=== PATIENT | female | born 1965 | race Caucasian/White ===

== ENCOUNTER → 2018-01-22 | Outpatient (CLI) | payer OTHER ==
[~2018-01-22] MED LIST: GASTROGRAFIN SOLUTION 30ML (Q9963) As Ordered; ISOVUE-370 76% 100ML VIAL (Q9967) As Ordered
== END ==
LOC: M RAD 14:39
DX: C50.912 Malignant neoplasm of unspecified site of left female breast (principal); K76.89 Other specified diseases of liver
CPT/HCPCS: Q9963

== ENCOUNTER → 2018-02-02 | Outpatient (CLI) | payer OTHER ==
[~2018-02-02] MED LIST changes: -GASTROGRAFIN SOLUTION 30ML (Q9963) As Ordered; -ISOVUE-370 76% 100ML VIAL (Q9967) As Ordered; +PROHANCE 279.3MG/ML 15ML VIAL (A9576) As Ordered
== END ==
LOC: M RAD 09:55
DX: C50.912 Malignant neoplasm of unspecified site of left female breast (principal); R59.0 Localized enlarged lymph nodes
CPT/HCPCS: A9576

== ENCOUNTER → 2018-02-17 | Outpatient (CLI) | payer OTHER | LOC: M CARPUL 11:08 | DX: I50.31 Acute diastolic (congestive) heart failure (principal); I33.9 Acute and subacute endocarditis, unspecified; C50.911 Malignant neoplasm of unspecified site of right female breast; Z92.21 Personal history of antineoplastic chemotherapy | CPT/HCPCS: 93306 ==

== ENCOUNTER → 2018-02-20 | Outpatient (CLI) | payer OTHER | LOC: M EKG 17:19 | DX: Z01.818 Encounter for other preprocedural examination (principal); C50.919 Malignant neoplasm of unspecified site of unspecified female breast | CPT/HCPCS: 71046 ==

== ENCOUNTER 2018-02-23 11:26 | Day surgery (SDC) | payer OTHER ==
[2018-02-23] MEDS ORDERED: LR 1,000 ML IV ×2 (12:00→16:15)
[2018-02-23] MEDS ORDERED: PROPOFOL 200 MG/20 ML VIAL As Ordered (13:56)
[2018-02-23] MEDS ORDERED: MIDAZOLAM INJ 2 MG/2 ML VIAL (J2250) As Ordered (13:56)
[2018-02-23] MEDS ORDERED: fentaNYL 100 MCG/2 ML INJECTION (J3010) As Ordered (13:56)
[2018-02-23] MEDS ORDERED: LIDOCAINE 2% INJ 100 MG/5 ML SDV (FOR ANES.) As Ordered (13:58)
[2018-02-23] MEDS: MUPIROCIN 2% OINT 22 GM TUBE TOP (14:45)
[2018-02-23] MEDS: LIDOCAINE 1% SDV INJ 30 ML VIAL As Ordered (14:56)
[2018-02-23] MEDS: HEPARIN SOD (PORCINE) 5000 UNITS/ML VIAL As Ordered (15:14)
[2018-02-23] MEDS: BUPIVACAINE LIPOSOME/PF 1.3% 20ML VIAL (13.3MG/ML)(EXPAREL)(C9290 PER1MG) As Ordered (15:20)
[2018-02-23] MEDS ORDERED: METOCLOPRAMIDE INJ 10MG/2ML VIAL (J2765) IV (16:15)
[2018-02-23] MEDS ORDERED: ONDANSETRON 4MG/2ML VIAL (J2405) IV (16:15)
[2018-02-23] MEDS ORDERED: fentaNYL 100 MCG/2 ML INJECTION (J3010) IV (16:15)
[2018-02-23] MEDS ORDERED: PERCOCET 5MG/325MG TAB PO (16:15)
== END 2018-02-23 18:10 | disposition home or self-care (01) ==
LOC: M SDC 11:26
DX: C50.912 Malignant neoplasm of unspecified site of left female breast (principal); Z45.2 Encounter for adjustment and management of vascular access device; M79.7 Fibromyalgia; M26.609 Unspecified temporomandibular joint disorder, unspecified side; Z88.5 Allergy status to narcotic agent; Z91.040 Latex allergy status; Z79.899 Other long term (current) drug therapy
CPT/HCPCS: 36561

== ENCOUNTER → 2018-02-26 | Outpatient (CLI) | payer OTHER | LOC: M SMT 08:07 | DX: Z01.818 Encounter for other preprocedural examination (principal); C50.912 Malignant neoplasm of unspecified site of left female breast; J93.9 Pneumothorax, unspecified | CPT/HCPCS: 71046 ==

== ENCOUNTER 2018-03-04 01:50 | Emergency (ER) | payer OTHER ==
[~2018-03-04] VITALS: Ht 167.6 cm; Wt 75.5 kg
[~2018-03-04 01:50] MED LIST changes: +ACET-683 PO; +AMOX125C PO; +DEXA4TA PO; +ECOT81TA5 PO; +FLAX10008 PO; +FLON1SPR NARES; +HYDR-3713 PO; +MAGN250T9 PO; +MELA5TAB20 PO; +MULT1TAB18 PO; +PERI0.126 PO; +PROB250C PO; +PROC10TA4 PO; -PROHANCE 279.3MG/ML 15ML VIAL (A9576) As Ordered; +ZOFR8TAB24 PO
[2018-03-04] MEDS ORDERED: ISOVUE-370 76% 100ML VIAL (Q9967) As Ordered ONE (02:54)
[2018-03-04 02:55] LABS: BASO % 0.1 % (0.0-1.0); HEMATOCRIT 34.9 % (36.0-47.0); HEMOGLOBIN 11.3 g/dl (12.0-15.5); LYMPH # 0.3 10^3/uL (1.5-4.5); LYMPH % 1.6 % (24.0-44.0); MEAN CORPUSCULAR HEMOGLOBIN 29.6 pg (27.0-33.0); MEAN CORPUSCULAR HGB CONC 32.4 g/dl (32.0-36.5); MEAN CORPUSCULAR VOLUME 91.4 fl (80.0-96.0); MONO # 0.7 10^3/uL (0.0-0.8); NEUTROPHILS # 16.3 10^3/uL (1.8-7.7); NEUTROPHILS % 91.3 % (36.0-66.0); PLATELET COUNT, AUTOMATED 309 10^3/uL (150-450); RED BLOOD COUNT 3.82 10^6/uL (4.00-5.40); WHITE BLOOD COUNT 17.8 10^3/uL (4.0-10.0)
[2018-03-04] MEDS ORDERED: diphenhydrAMINE INJ 50MG/ML VIAL (J1200) IV ONE (03:00)
[2018-03-04] MEDS ORDERED: methylPREDNISolone INJ 125 MG/2 ML VIAL (J2930) IV ONE (03:00)
[2018-03-04 03:27] LABS: BLOOD UREA NITROGEN 12 MG/DL (7-18); CALCIUM LEVEL 8.1 MG/DL (8.5-10.1); CARBON DIOXIDE LEVEL 29 MEQ/L (21-32); CHLORIDE LEVEL 107 MEQ/L (98-107); CK-MB VALUE MASS < 1.0 NG/ML (<3.6); CPK CREATINE PHOSPHOKINASE 127 U/L (26-192); CREATININE FOR GFR 0.65 MG/DL (0.55-1.30); GLOMERULAR FILTRATION RATE > 60.0 (>51); GLUCOSE, FASTING 150 MG/DL (70-100); MB/CK RELATIVE INDEX 0.79 (< OR =4); POTASSIUM SERUM 3.8 MEQ/L (3.5-5.1); SODIUM LEVEL 143 MEQ/L (136-145); TROPONIN I 0.02 NG/ML (< 0.10)
[2018-03-04 04:30] VITALS: BP 141/67
--- NOTE | 2018-03-04 04:35 | REPVR ---
EXAM: CT Angiography Chest With Contrast EXAM DATE/TIME: 03/04/2018 2:47 AM CLINICAL HISTORY: 52 years old, female; Pain; Chest pain; Right-sided chest pain; Additional info: Right sided chest pain TECHNIQUE: Axial computed tomographic angiography images of the chest with intravenous contrast using CT angiography protocol. All CT scans at this facility use at least one of these dose optimization techniques: automated exposure control; mA and/or kV adjustment per patient size (includes targeted exams where dose is matched to clinical indication); or iterative reconstruction. Coronal and sagittal reformatted images were created and reviewed. MIP reconstructed images were created and reviewed. CONTRAST: 75 ml of iso administered intravenously. COMPARISON: CT Chest with contrast 01/22/2018 4:23 PM CR - CHEST 2 VIEWS 02/26/2018 8:22:46 AM FINDINGS: Tubes, catheters and devices: There is a right sided [id number]. Pulmonary arteries: The pulmonary arteries are not enlarged. No filling defects are seen to indicate an acute pulmonary embolism. Aorta: There is no thoracic aortic aneurysm or evidence of dissection. Lungs: There is dependent mild hazy density and minimal peripheral bibasilar atelectasis. Pleural space: There are no pleural effusions present. There is a small right-sided pneumothorax, significantly decreased in size compared to the chest x-ray of 02/26/2018. Heart: The heart is normal in size. Liver: Multiple low attenuation lesions with simple fluid density consistent with cysts are again seen in the liver, with the largest included lesion measuring 2.9 cm, located at the dome in the right lobe. Lymph nodes: An enlarged left axillary lymph node measures 2.1 x 1.9 cm, unchanged in size from the prior exam. Bones/joints: Mild degenerative endplate changes are noted in the visualized spine. Soft tissues: Unremarkable. IMPRESSION: 1. Residual small right pneumothorax, significantly smaller than on the prior chest x-ray. 2. No evidence of acute pulmonary embolism. 3. Small amount of dependent and basilar density most consistent with mild atelectasis. Electronically signed by: Homa Mascorro On 03/04/2018 04:34:49 AM
[2018-03-04] MEDS ORDERED: OXYCODONE/APAP 5MG/325MG(BULK FOR ED) 1 TABLET PO ONE (05:30)
--- NOTE | 2018-03-04 10:36 | ECGEPIP ---
Stationary ECG Study [facility] - ED Test Date: 2018-03-04 Pat Name: JOSE STRINGER Department: Room: - Gender: F Engineering Technologist: lamar : 1965 Requested By: JIMENEZ Corley Order Number: [id number] Reading MD: Janell Price Measurements Intervals [place] Rate: 73 P: 46 NH: 151 QRS: 9 QRSD: 92 T: 47 QT: 386 QTc: 428 Interpretive Statements SINUS RHYTHM NONSPECIFIC ST & T-WAVE ABNORMALITY DECREASED RATE 02/20/18 Electronically Signed On 03-04-2018 10:35:39 EST by Janell Price
[2018-03-05] MEDS ORDERED: ONDA8TAB7 PO (16:17)
[2018-03-05] MEDS ORDERED: MELA5TAB17 PO (16:17)
[2018-03-05] MEDS ORDERED: MAGN400T5 PO (16:17)
[2018-03-05] MEDS ORDERED: PROC10TA4 PO (16:17)
[2018-03-05] MEDS ORDERED: EMEN150S IV (16:17)
[2018-03-05] MEDS ORDERED: OXYC1TAB23 PO (16:17)
[2018-03-05] MEDS ORDERED: DEXA10VL IV (16:17)
[2018-03-05] MEDS ORDERED: DEXA4TA PO (16:17)
[2018-03-05] MEDS ORDERED: PROB1TAB PO (16:17)
[2018-03-05] MEDS ORDERED: PALO0.25 IV (16:17)
[2018-03-05] MEDS ORDERED: HERC150I IV (16:19)
== END 2018-03-04 06:51 | disposition home or self-care (01) ==
LOC: M ED 01:50
DX: J93.9 Pneumothorax, unspecified (principal); R07.89 Other chest pain; C50.919 Malignant neoplasm of unspecified site of unspecified female breast; Z88.5 Allergy status to narcotic agent; Z91.040 Latex allergy status; Z91.013 Allergy to seafood; J30.2 Other seasonal allergic rhinitis; Z79.899 Other long term (current) drug therapy; Z79.82 Long term (current) use of aspirin
CPT/HCPCS: 71275; 80048; 82550; 82553; 84484; 85025; 93005; 96374; 96375; 99284; J1200; J2930; Q9967

== ENCOUNTER 2018-03-05 12:03 | Observation (INO) | payer OTHER ==
[2018-03-05 14:20] LABS: BEDSIDE GLUCOSE 110 MG/DL (70-105)
[2018-03-05] MEDS: NS 1,000 ML IV ×2 (14:25→17:14)
[2018-03-05 14:26] LABS: HEMATOCRIT 38.3 % (36.0-47.0); HEMOGLOBIN 12.5 g/dl (12.0-15.5); MEAN CORPUSCULAR HEMOGLOBIN 29.8 pg (27.0-33.0); MEAN CORPUSCULAR HGB CONC 32.6 g/dl (32.0-36.5); MEAN CORPUSCULAR VOLUME 91.2 fl (80.0-96.0); PLATELET COUNT, AUTOMATED 265 10^3/uL (150-450); RED CELL DISTRIBUTION WIDTH 12.6 % (11.5-14.5); WHITE BLOOD COUNT 15.1 10^3/uL (4.0-10.0)
[2018-03-05 14:39] LABS: POS COUNT POS FLAG; POSITIVE MORPH POS FLAG
[2018-03-05 14:40] LABS: ADD MANUAL DIFFER YES; DIFF SLIDE NUMBER 273
[2018-03-05 15:24] LABS: ANION GAP 10 MEQ/L (8-16); BLOOD UREA NITROGEN 19 MG/DL (7-18); CALCIUM LEVEL 8.1 MG/DL (8.5-10.1); CARBON DIOXIDE LEVEL 28 MEQ/L (21-32); CHLORIDE LEVEL 101 MEQ/L (98-107); CK-MB VALUE MASS < 1.0 NG/ML (<3.6); CPK CREATINE PHOSPHOKINASE 80 U/L (26-192); CREATININE FOR GFR 0.73 MG/DL (0.55-1.30); FREE T4 0.95 NG/DL (0.76-1.46); GLOMERULAR FILTRATION RATE > 60.0 (>51); GLUCOSE, FASTING 115 MG/DL (70-100); MAGNESIUM LEVEL 2.5 MG/DL (1.8-2.4); MB/CK RELATIVE INDEX 1.25 (< OR =4); POTASSIUM SERUM 4.1 MEQ/L (3.5-5.1); SODIUM LEVEL 139 MEQ/L (136-145); TROPONIN I < 0.02 NG/ML (< 0.10)
[2018-03-05 15:33] LABS: ATYPICAL LYMPH 3 % (0-5); BANDS 13 % (< 11); LYMPHOCYTES 3 % (16-52); METAMYELOCYTES 1 % (0-0); MONOCYTES 1 % (0-8); NEUTROPHILS 79 % (35-75)
[2018-03-05 15:34] LABS: PLATELET ESTIMATE NORMAL (NORMAL)
[2018-03-05 15:35] LABS: TOXIC VACUOLATION 1+
[2018-03-05] MEDS ORDERED: [UNRECOGNIZED DRUG - OTHER] IV (17:00)
[2018-03-05] MEDS ORDERED: BISACODYL 5 MG TAB PO (17:00)
[2018-03-06] MEDS: NS 1,000 ML IV (03:22)
[2018-03-06 05:50] LABS: ADD MANUAL DIFFER YES; DIFF SLIDE NUMBER 53; HEMATOCRIT 33.6 % (36.0-47.0); MEAN CORPUSCULAR HEMOGLOBIN 29.3 pg (27.0-33.0); MEAN CORPUSCULAR HGB CONC 32.7 g/dl (32.0-36.5); MEAN CORPUSCULAR VOLUME 89.6 fl (80.0-96.0); PLATELET COUNT, AUTOMATED 212 10^3/uL (150-450); POS COUNT POS FLAG; POSITIVE MORPH POS FLAG; RED BLOOD COUNT 3.75 10^6/uL (4.00-5.40); RED CELL DISTRIBUTION WIDTH 12.8 % (11.5-14.5); WHITE BLOOD COUNT 8.3 10^3/uL (4.0-10.0)
[2018-03-06 06:16] LABS: ANION GAP 8 MEQ/L (8-16); BLOOD UREA NITROGEN 10 MG/DL (7-18); CALCIUM LEVEL 7.6 MG/DL (8.5-10.1); CARBON DIOXIDE LEVEL 28 MEQ/L (21-32); CHLORIDE LEVEL 107 MEQ/L (98-107); CREATININE FOR GFR 0.47 MG/DL (0.55-1.30); GLOMERULAR FILTRATION RATE > 60.0 (>51); GLUCOSE, FASTING 95 MG/DL (70-100); POTASSIUM SERUM 3.4 MEQ/L (3.5-5.1); SODIUM LEVEL 143 MEQ/L (136-145)
[2018-03-06 06:20] LABS: LYMPHOCYTES 10 % (16-52); METAMYELOCYTES 3 % (0-0); NEUTROPHILS 87 % (35-75)
[2018-03-06 06:22] LABS: PLATELET ESTIMATE NORMAL (NORMAL)
[2018-03-06] MEDS: PANTOPRAZOLE 40MG INJ (PROTONIX) (C9113) IV (08:26)
[2018-03-06] MEDS: POTASSIUM CHLORIDE 10 MEQ SR TABLET PO (08:26)
[2018-03-06] MEDS: MAGNESIUM OXIDE 400 MG TAB (MAG-OX) PO (08:26)
[2018-03-06] MEDS: ENOXAPARIN 40 MG/0.4 ML SYRINGE (J1650) SC (08:28)
[2018-03-06] MEDS: ACETAMINOPHEN 500 MG TAB PO (11:34)
[2018-03-06] MEDS: traMADol 50 MG TAB PO (14:16)
[2018-03-06] MEDS: LOPERAMIDE 2 MG CAP PO ×2 (18:43→20:10)
[2018-03-07] MEDS: ONDANSETRON 4MG/2ML VIAL (J2405) IV (00:14)
[2018-03-07] MEDS: LOPERAMIDE 2 MG CAP PO ×2 (04:52→06:12)
[2018-03-07] MEDS: PANTOPRAZOLE 40MG INJ (PROTONIX) (C9113) IV (08:09)
[2018-03-07] MEDS: MAGNESIUM OXIDE 400 MG TAB (MAG-OX) PO (08:10)
[2018-03-07] MEDS: ENOXAPARIN 40 MG/0.4 ML SYRINGE (J1650) SC (08:10)
[2018-03-07] MEDS: NS 1,000 ML IV ×2 (10:10→17:28)
[2018-03-07] MEDS: ACETAMINOPHEN 500 MG TAB PO (21:01)
[2018-03-08] MEDS: NS 1,000 ML IV ×2 (00:07→05:55)
[2018-03-08 07:52] LABS: HEMATOCRIT 33.4 % (36.0-47.0); HEMOGLOBIN 10.9 g/dl (12.0-15.5); MEAN CORPUSCULAR HEMOGLOBIN 29.4 pg (27.0-33.0); MEAN CORPUSCULAR HGB CONC 32.6 g/dl (32.0-36.5); PLATELET COUNT, AUTOMATED 205 10^3/uL (150-450); RED BLOOD COUNT 3.71 10^6/uL (4.00-5.40); RED CELL DISTRIBUTION WIDTH 12.6 % (11.5-14.5); WHITE BLOOD COUNT 4.1 10^3/uL (4.0-10.0)
[2018-03-08 08:13] LABS: ANION GAP 7 MEQ/L (8-16); BLOOD UREA NITROGEN 8 MG/DL (7-18); CARBON DIOXIDE LEVEL 28 MEQ/L (21-32); CHLORIDE LEVEL 108 MEQ/L (98-107); CREATININE FOR GFR 0.52 MG/DL (0.55-1.30); GLOMERULAR FILTRATION RATE > 60.0 (>51); GLUCOSE, FASTING 99 MG/DL (70-100); POTASSIUM SERUM 3.2 MEQ/L (3.5-5.1); SODIUM LEVEL 143 MEQ/L (136-145)
[2018-03-08 08:15] LABS: ADD MANUAL DIFFER YES; DIFF SLIDE NUMBER 80; POSITIVE MORPH POS FLAG
[2018-03-08 08:56] LABS: ATYPICAL LYMPH 4 % (0-5); BANDS 1 % (< 11); LYMPHOCYTES 39 % (16-52); MONOCYTES 9 % (0-8); NEUTROPHILS 47 % (35-75); PLATELET ESTIMATE NORMAL (NORMAL)
[2018-03-08] MEDS: PANTOPRAZOLE 40MG INJ (PROTONIX) (C9113) IV (09:23)
[2018-03-08] MEDS: ENOXAPARIN 40 MG/0.4 ML SYRINGE (J1650) SC (09:24)
[2018-03-08] MEDS: MAGNESIUM OXIDE 400 MG TAB (MAG-OX) PO (09:24)
[2018-03-08] MEDS: POTASSIUM CHLORIDE 10 MEQ SR TABLET PO (09:33)
== END 2018-03-08 11:19 | disposition home or self-care (01) ==
LOC: M ED 12:03 → M ED INP 16:46 → M MSPAV 18:44
DX: I95.1 Orthostatic hypotension (principal); D72.829 Elevated white blood cell count, unspecified; C50.912 Malignant neoplasm of unspecified site of left female breast; M79.7 Fibromyalgia; Z79.899 Other long term (current) drug therapy; R19.7 Diarrhea, unspecified; Z79.82 Long term (current) use of aspirin; Z91.040 Latex allergy status; Z88.5 Allergy status to narcotic agent; Z91.013 Allergy to seafood
CPT/HCPCS: C9113

== ENCOUNTER 2018-03-30 15:51 | Inpatient (IN) | payer OTHER ==
[~2018-03-30] VITALS: Ht 167.6 cm; Wt 69.1 kg
[2018-03-30] MEDS: NS 1,000 ML IV SCH (00:30)
[2018-03-30] MEDS: POTASSIUM CHLORIDE 10 MEQ SR TABLET PO SCH (01:00)
[~2018-03-30 15:51] MED LIST changes: +DEXA10VL IV; +EMEN150S IV; +HERC150I IV; +HYDR1CRE93 TOP; +K-TA10TA2 PO; +MAGICMW MT; +MAGN400T5 PO; +MELA5TAB17 PO; +ONDA8TAB7 PO; +OXYC1TAB23 PO; +PALO0.25 IV; +PROB1TAB PO
[2018-03-30 17:08] LABS: HEMATOCRIT 39.5 % (36.0-47.0); MEAN CORPUSCULAR HEMOGLOBIN 29.5 pg (27.0-33.0); MEAN CORPUSCULAR HGB CONC 32.9 g/dl (32.0-36.5); MEAN CORPUSCULAR VOLUME 89.8 fl (80.0-96.0); PLATELET COUNT, AUTOMATED 354 10^3/uL (150-450); WHITE BLOOD COUNT 28.4 10^3/uL (4.0-10.0)
[2018-03-30 17:23] LABS: INR 1.02; PROTHROMBIN TIME 13.6 SECONDS (12.1-14.4)
[2018-03-30 17:24] LABS: PARTIAL THROMBOPLASTIN TIME 24.5 SECONDS (25.4-37.6)
[2018-03-30 17:26] LABS: ALBUMIN 3.9 GM/DL (3.2-5.2); ALT/SGPT 94 U/L (12-78); AMYLASE 45 U/L (25-115); BILIRUBIN,DIRECT < 0.1 MG/DL (0.0-0.2); BILIRUBIN,TOTAL 0.3 MG/DL (0.2-1.0); BLOOD UREA NITROGEN 11 MG/DL (7-18); CARBON DIOXIDE LEVEL 18 MEQ/L (21-32); CHLORIDE LEVEL 106 MEQ/L (98-107); CK-MB VALUE MASS < 1.0 NG/ML (<3.6); CPK CREATINE PHOSPHOKINASE 32 U/L (26-192); CREATININE FOR GFR 0.69 MG/DL (0.55-1.30); GLOMERULAR FILTRATION RATE > 60.0 (>51); GLUCOSE, FASTING 113 MG/DL (70-100); LIPASE 111 U/L (73-393); MB/CK RELATIVE INDEX 3.12 (< OR =4); POTASSIUM SERUM 3.3 MEQ/L (3.5-5.1); SODIUM LEVEL 139 MEQ/L (136-145); TOTAL PROTEIN 7.5 GM/DL (6.4-8.2); TROPONIN I < 0.02 NG/ML (< 0.10)
[2018-03-30] MEDS ORDERED: NS 1,000 ML IV ONE (17:30)
[2018-03-30] MEDS ORDERED: NS 500 ML IV ONE (17:30)
[2018-03-30] MEDS ORDERED: HYDR1CRE2 TOP (17:32)
[2018-03-30] MEDS ORDERED: FLON1SPR NARES (17:36)
[2018-03-30 18:08] LABS: LYMPHOCYTES 11 % (16-52); METAMYELOCYTES 4 % (0-0); MONOCYTES 16 % (0-8); NEUTROPHILS 63 % (35-75); PLATELET ESTIMATE NORMAL (NORMAL)
[2018-03-30 18:09] LABS: DOHLE BODIES 1+; TOXIC GRANULATION 2+
[2018-03-30] MEDS ORDERED: KCL 10MEQ/100ML SWI (KRUN) 10 MEQ in APPROPRIATE DILUENT 1 EA IV ONE (19:00)
[2018-03-30] MEDS ORDERED: ISOVUE-370 76% 100ML VIAL (Q9967) As Ordered ONE (19:30)
--- NOTE | 2018-03-30 20:20 | REPVR ---
EXAM: CT Abdomen and Pelvis With Contrast EXAM DATE/TIME: 03/30/2018 7:43 PM CLINICAL HISTORY: 52 years old, female; Signs and symptoms; Other: Diarrhea, abd cramps, ; prior surgery; Additional info: Diarrhea, abd cramps, leukocytosis, on chemo TECHNIQUE: Axial computed tomography images of the abdomen and pelvis with intravenous contrast. All CT scans at this facility use at least one of these dose optimization techniques: automated exposure control; mA and/or kV adjustment per patient size (includes targeted exams where dose is matched to clinical indication); or iterative reconstruction. Coronal and sagittal reformatted images were created and reviewed. CONTRAST: 100 ml of ISOVUE 370 administered intravenously. COMPARISON: CT ABD PELVIS WITH CONTRAST 01/22/2018 4:23 PM FINDINGS: Lower thorax: Clear lung bases. The heart is normal in size. ABDOMEN: Liver: There are multiple cysts throughout the liver ranging in size from 5 mm to as large as 1.5 CM. Gallbladder and bile ducts: Normal common bile duct. Normal common bile duct. Patient is post cholecystectomy. Pancreas: Normal pancreas. Spleen: Normal spleen. Adrenals: Normal adrenal glands. Kidneys and ureters: There is enhancement of the right and left kidney. There is opacification of the right and left collecting system and no evidence of obstruction. Stomach and bowel: The cecum is in the right pelvis and there is no evidence of inflammation. There are multiple fluid-filled loops of small bowel with air-fluid levels and this may be the result of ileus or enteritis. Secretions are noted within the colon as well. PELVIS: Bladder: Small amount of contrast in the urinary bladder. Patient is status post hysterectomy. ABDOMEN and PELVIS: Intraperitoneal space: There is no evidence of pneumoperitoneum. There is no evidence of free fluid within the abdomen or the pelvis. Bones/joints: No acute fracture. No dislocation. Soft tissues: Unremarkable. Vasculature: There is opacification of the aorta which appears intact. Lymph nodes: There is no evidence of lymphadenopathy. IMPRESSION: Secretions and air-fluid levels through the small bowel may be the result of ileus or enteritis. Electronically signed by: Aftab Ansari On 03/30/2018 20:20:39 PM
[2018-03-30] MEDS ORDERED: ONDANSETRON 4MG/2ML VIAL (J2405) IV PRN (21:30)
[2018-03-30] MEDS ORDERED: FLUTICASONE PROP 0.05% NASAL SPRAY 16 GM (FLONASE) NARES PRN (21:30)
[2018-03-30] MEDS ORDERED: PROCHLORPERAZINE 5 MG TAB (S0183) PO PRN (21:30)
[2018-03-30] MEDS ORDERED: ACETAMINOPHEN 500 MG TAB PO PRN (21:30)
--- NOTE | 2018-03-30 23:02 | HPEPDOC ---
[facility] Medical History & Physical Date of Admission Mar 30, 2018 Other Provider Dictating/admitting Beltran Bueno M.D. Attending Physician: CODY SALEEM MD History and Physical CHIEF COMPLAINT: Diarrhea. Status post chemotherapy 7 days HISTORY OF PRESENT ILLNESS: Patient is a 52-year-old woman. She has medical history significant for left breast cancer. She is currently taking chemotherapy. Her last chemotherapy dose was 03/23/2018. 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 Patient recently diagnosed with breast cancer in December 2017. She has left portal placed February 23 for administration of chemotherapeutic agents. Patient reports frequent diarrhea anytime she receives her chemotherapy. Her last chemotherapy was administered on March 23 this year. She denies any nausea or vomiting. No dizziness, loss of consciousness. She denies any fever or chills, palpitations or chest pains. She denies any shortness of breath. No cough. She denies any change in her urinary habits. She was evaluated with IV fluids in the emergency room and patient currently still having diarrhea. Plan is to have her admitted. PAST MEDICAL HISTORY: Per HPI PAST SURGICAL HISTORY: 1. Hysterectomy without oophorectomy. 2. Left knee surgery for repair of torn ligaments. 3. Right finger amputation from trauma. 4. Cholecystectomy. SOCIAL HISTORY: Marital status: . 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 Tobacco use: Denies ETOH: Denies Illicit drug use: Denies Tattoos done unprofessionally: None. IV drug use: Denies FAMILY HISTORY: Father: Alive, diagnosed with liver cancer Mother: Alive, diagnosed with hypertension, thyroid disease and colon cancer Siblings: Sister with diabetes ALLERGIES: Please see below. REVIEW OF SYSTEMS: 12 point review of systems negative other than that described in the body of HPI. HOME MEDICATIONS: Please see below. PHYSICAL EXAMINATION: VITAL SIGNS: Temperature 97, pulse 100, respiratory rate 18, blood pressure 124/68, pulse oximetry 99% on room air. GENERAL APPEARANCE: Middle aged woman, lying calmly in bed, not in any apparent distress, appears weak. She is not pale, anicteric and afebrile HEENT: Atraumatic. Neck: Supple. LUNGS: Clear to auscultation bilaterally. Chemo port appreciated on the right upper chest. CARDIOVASCULAR: S1 and 2 heard, no murmurs, rubs or gallops. ABDOMEN: Obese, soft, not tender, not distended. Bowel sounds normoactive. MUSCULOSKELETAL: Apparently within normal limits EXTREMITIES: No pedal edema, 2+ bilateral pedal pulses noted. NEUROLOGICAL: Awake, alert, oriented 3. LABORATORY DATA: See below. IMAGING: CT abdomen and pelvis without contrast: Secretions and air-fluid levels through the small bowel may be the result of ileus or enteritis. MICROBIOLOGY: Please see below. ASSESSMENT: Patient is a 52-year-old woman with CA breast, comes in with 7 days of diarrhea post chemotherapy. Exam is unremarkable. Her imaging is unremarkable, labs, with elevated white count but no systemic signs of infection. DIAGNOSES: 1. Dehydration, likely secondary to chronic diarrhea. 2. Diarrhea. 3. Leukocytosis. PLAN: 1. I will admit patient to medical floors under care of Dr. Saleem 2. Will continue volume resuscitation with normal saline. 3. Follow GI panel. Will hold Mag-Ox and probiotics for now. 4. Leukocytosis without systemic signs of infection. This may be reactionary from pain/leukemoid reaction. Repeat CBC in the morning. 5. History of Breast CA. 6. DVT prophylaxis with subcutaneous enoxaparin. 7. DVT prophylaxis. IV pantoprazole. 8. IV Zofran when necessary nausea and vomiting. 9. Further management will be per patient's clinical course.. Vital Signs Vital Signs Date Time Temp Pulse Resp B/P (MAP) Pulse Ox O2 Delivery O2 Flow Rate FiO2 03/30/18 20:05 100 18 134/68 (90) 99 Room Air 03/30/18 15:51 98.9 Laboratory Data Labs 24H Laboratory Tests 2 03/30/18 16:50: Immature Granulocyte % (Auto) , White Blood Count 28.4H, Red Blood Count 4.40, Hemoglobin 13.0, Hematocrit 39.5, Mean Corpuscular Volume 89.8, Mean Corpuscular Hemoglobin 29.5, Mean Corpuscular Hemoglobin Concent 32.9, Red Cell Distribution Width 13.4, Platelet Count 354, Monocytes # (Auto) , Nucleated Red Blood Cells % (auto) 0.2H, Neutrophils 63, Band Neutrophils 6, Lymphocytes (Manual) 11L, Monocytes (Manual) 16H, Metamyelocytes 4H, Toxic Granulation 2+, Dohle Bodies 1+, Platelet Estimate NORMAL, Anion Gap 15, Glomerular Filtration Rate > 60.0, Calcium Level 9.0, Aspartate Amino Transf (AST/SGOT) 32, Alanine Aminotransferase (ALT/SGPT) 94H, Alkaline Phosphatase 92, Total Bilirubin 0.3, Direct Bilirubin < 0.1, Total Creatine Kinase 32, Creatine Kinase MB < 1.0, Creatine Kinase MB Relative Index 3.12, Troponin I < 0.02, Total Protein 7.5, Albumin 3.9, Albumin/Globulin Ratio 1.08, Amylase Level 45, Lipase 111 03/30/18 17:07: Prothrombin Time 13.6, Prothromb Time International Ratio 1.02, Activated Partial Thromboplast Time 24.5L 03/30/18 17:41: Lactic Acid Level 1.4 CBC/BMP Laboratory Tests 03/30/18 16:50 Red Blood Count 4.40, Mean Corpuscular Volume 89.8, Mean Corpuscular Hemoglobin 29.5, Mean Corpuscular Hemoglobin Concent 32.9, Red Cell Distribution Width 13.4, Monocytes # (Auto) Microbiology Microbiology 03/30/18 Blood Culture, Received Pending 03/30/18 Blood Culture, Received Pending 03/30/18 Gastrointestinal Tract Panel (PCR) - Final, Complete Home Medications Scheduled (Multi Vitamin) 1 Tab Tab, 1 TAB PO DAILY (Probiotic) 1 Tab Tab, 1 TAB PO DAILY Aspirin (Ecotrin Low Strength) 81 Mg Tab, 81 MG PO DAILY Dexamethasone (Dexamethasone) 4 Mg Tab, 8 MG PO ASDIRECTED TAKE 8MG BID FOR 3 DAYS STARTING ONE DAY PRIOR TO CHEMO, THE DAY OF CHEMO AND DAY AFTER CHEMO Linseed Oil (Flaxseed Oil) 1,000 Mg Cap, 3,000 MG PO DAILY Magnesium Oxide (Magnesium Oxide 400) 400 Mg Tab, 400 MG PO DAILY Potassium Chloride (K-Tab) 10 Meq Tab, 2 TAB PO DAILY Scheduled PRN Acetaminophen (Acetaminophen Extra Stren) 500 Mg Tab, 500 MG PO Q6H PRN for PAIN / FEVER Fluticasone Propionate (Flonase Allergy Relief) 50 Mcg/Act Spr, 2 SPRAY NARES DA VANESSA PRN for NASAL CONGESTION Hydrocortisone (Hydrocortisone) 1 % Cre, 1 DOSE TOP BID PRN for RASH APPLY TO CHEST NEEEDED Melatonin (Melatonin) 5 Mg Tab, 5 MG PO QHS PRN for SLEEP Ondansetron HCl (Ondansetron HCl) 8 Mg Tab, 8 MG PO Q12H PRN for NAUSEA Oxycodone/Acetaminophen (Oxycodone/Acetaminophen 5-325 mg) 1 Tab Tab, 1 TAB PO TIDP PRN for pain Prochlorperazine Maleate (Prochlorperazine Maleate) 10 Mg Tab, 10 MG PO Q6H PRN for NAUSEA Allergies Coded Allergies: Shellfish Allergy (Verified Allergy, Severe, THROAT SWELLING, 02/20/18) Latex (Verified Allergy, Intermediate, MILD RASH, 02/20/18) Codeine (Verified Adverse Reaction, Mild, NAUSEA AND VOMITING, 02/20/18) SEASONAL ALLERGIES (Verified Adverse Reaction, Mild, STUFFY NOSE AND WATERY EYES, 02/20/18) BELTRAN BUENO MD Mar 30, 2018 23:02
[2018-03-31 00:08] VITALS: BP 121/68
[2018-03-31 06:00] VITALS: BP 112/61
[2018-03-31 06:37] LABS: HEMATOCRIT 31.7 % (36.0-47.0); HEMOGLOBIN 10.4 g/dl (12.0-15.5); MEAN CORPUSCULAR HEMOGLOBIN 29.4 pg (27.0-33.0); MEAN CORPUSCULAR HGB CONC 32.8 g/dl (32.0-36.5); MEAN CORPUSCULAR VOLUME 89.5 fl (80.0-96.0); PLATELET COUNT, AUTOMATED 275 10^3/uL (150-450); RED BLOOD COUNT 3.54 10^6/uL (4.00-5.40)
[2018-03-31 06:41] LABS: WHITE BLOOD COUNT 33.4 10^3/uL (4.0-10.0)
[2018-03-31 06:52] LABS: BLOOD UREA NITROGEN 8 MG/DL (7-18); CARBON DIOXIDE LEVEL 21 MEQ/L (21-32); CHLORIDE LEVEL 112 MEQ/L (98-107); CREATININE FOR GFR 0.66 MG/DL (0.55-1.30); GLOMERULAR FILTRATION RATE > 60.0 (>51); GLUCOSE, FASTING 96 MG/DL (70-100); POTASSIUM SERUM 3.1 MEQ/L (3.5-5.1); SODIUM LEVEL 144 MEQ/L (136-145)
[2018-03-31 07:25] LABS: LYMPHOCYTES 7 % (16-52); METAMYELOCYTES 3 % (0-0); MONOCYTES 9 % (0-8); MYELOCYTES 1 % (0-0); NEUTROPHILS 73 % (35-75); PLATELET ESTIMATE NORMAL (NORMAL)
[2018-03-31 07:26] LABS: ANISOCYTOSIS 1+; DOHLE BODIES 2+; POLYCHROMASIA 1+; TEAR DROP CELLS 1+; TOXIC GRANULATION 2+
[2018-03-31] MEDS ORDERED: PIPERACILLIN/TAZOBACTAM SOD 2.25 GM in D5W MINI-BAG PLUS 50 ML IV SCH (08:00)
[2018-03-31] MEDS: POTASSIUM CHLORIDE 10 MEQ SR TABLET PO SCH ×2 (08:19→20:40)
[2018-03-31] MEDS: ASPIRIN 81 MG ENTERIC TAB PO SCH (08:19)
[2018-03-31] MEDS: NS 1,000 ML IV SCH (08:19)
[2018-03-31] MEDS: ENOXAPARIN 40 MG/0.4 ML SYRINGE (J1650) SC SCH (08:20)
[2018-03-31] MEDS: PANTOPRAZOLE 40MG INJ (PROTONIX) (C9113) IV SCH (08:20)
--- NOTE | 2018-03-31 13:11 | IPNPDOC ---
Text Note Date of Service The patient was seen on 03/31/18. NOTE SUBJECTIVE: Continues to have diarrhea but says that it is getting thicker, no fever or chillls, no abdominal pain , no blood in diarrhea, no chest pain or sob , no cough , no nausea or vomiting. PHYSICAL EXAMINATION: VITAL SIGNS: Temperature 97, pulse 100, respiratory rate 18, blood pressure 124/68, pulse oximetry 99% on room air. GENERAL APPEARANCE: Middle aged woman, lying calmly in bed, not in any apparent distress, appears weak. She is not pale, anicteric and afebrile HEENT: Atraumatic. Neck: Supple. LUNGS: Clear to auscultation bilaterally. Chemo port appreciated on the right upper chest. CARDIOVASCULAR: S1 and 2 heard, no murmurs, rubs or gallops. ABDOMEN: Obese, soft, not tender, not distended. Bowel sounds normoactive. MUSCULOSKELETAL: Apparently within normal limits EXTREMITIES: No pedal edema, 2+ bilateral pedal pulses noted. NEUROLOGICAL: Awake, alert, oriented 3. LABORATORY DATA and Radiology : Reviewed. IMAGING: CT abdomen and pelvis without contrast: Secretions and air-fluid levels through the small bowel may be the result of ileus or enteritis. MICROBIOLOGY: Please see below. ASSESSMENT AND PLAN: Patient is a 52-year-old woman. She has medical history significant for left breast cancer. She is currently taking chemotherapy. Her last chemotherapy dose was 03/23/2018. 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 Patient recently diagnosed with breast cancer in December 2017. She has left portal placed February 23 for administration of chemotherapeutic agents. Patient reports frequent diarrhea anytime she receives her chemotherapy. Her last chemotherapy was administered on March 23 this year. She denies any nausea or vomiting. No dizziness, loss of consciousness. She denies any fever or chills, palpitations or chest pains. She denies any shortness of breath. No cough. She denies any change in her urinary habits. She was evaluated with IV fluids in the emergency room and patient currently still having diarrhea. Plan is to have her admitted. Patient is a 52-year-old woman with CA breast, comes in with 7 days of diarrhea post chemotherapy. Exam is unremarkable. Her imaging is unremarkable, labs, with elevated white count but no systemic signs of infection. Diarrhea and Dehydration Likely secondary to chemotherapy ileus and enteritis. GI panel negative, no fever, blood cultures have been sent Will not give any antibiotics at present Continue IVF Hypokalemia continue potassium supplementation Leucocytosis probably due to Neupogen which she got 1 week ago and reactive to diarrhea with dehydration will monitor. Breast CA. Locally advanced breast cancer, invasive ductal carcinoma, grade II, ER positive, NV positive, and HER2 positive. With right breast MRI 01/2018 showing a 4.7 x 3.2 x 3.6 left breast upper outer quadrant mass with left axillary lymphadenopathy cT2/N1 invasive ductal carcinoma. Started neoadjuvant docetaxel/carboplatin/pertuzumab/trastuzumab chemotherapy Received second cycle on Mar [address] Lynn. DVT prophylaxis with subcutaneous enoxaparin. VS,Fishbone, I+O VS, Fishbone, I+O Laboratory Tests 03/30/18 16:50 Red Blood Count 4.40, Mean Corpuscular Volume 89.8, Mean Corpuscular Hemoglobin 29.5, Mean Corpuscular Hemoglobin Concent 32.9, Red Cell Distribution Width 13.4, Monocytes # (Auto) 03/31/18 06:22 Red Blood Count 3.54 L, Mean Corpuscular Volume 89.5, Mean Corpuscular Hemoglobin 29.4, Mean Corpuscular Hemoglobin Concent 32.8, Red Cell Distribution Width 13.6, Monocytes # (Auto) , Calcium Level 8.0 L Vital Signs Date Time Temp Pulse Resp B/P (MAP) Pulse Ox O2 Delivery O2 Flow Rate FiO2 03/31/18 06:00 98.0 90 17 112/61 (78) 96 Room Air I&O- Last 24 Hours up to 6 AM 03/31/18 06:00 Intake Total 1920 ml Output Total 150 ml Balance 1770 ml CODY ALANIZ MD Mar 31, 2018 13:11
[2018-03-31] MEDS: KCL 40MEQ in NS 1000ML 1,000 ML IV SCH ×2 (13:29→22:57)
[2018-03-31 14:00] VITALS: BP 122/75
--- NOTE | 2018-03-31 19:46 | ECGEPIP ---
Stationary ECG Study [facility] - ED Test Date: 2018-03-30 Pat Name: JOSE STRINGER Department: Room: - Gender: F Manager Architectural: : 1965 Requested By: LINO Torres Order Number: [id number] Reading MD: Ryne Wesley Measurements Intervals [place] Rate: 105 P: 37 SD: 145 QRS: 15 QRSD: 85 T: 92 QT: 318 QTc: 421 Interpretive Statements SINUS TACHYCARDIA ST DEVIATION AND MODERATE T-WAVE ABNORMALITY, CONSIDER ANTERIOR ISCHEMIA CW 03/05/[address] T WAVE CHANGES NOTED -CONSIDER ISCHEMIA CLINICAL CORRELATION ADVISED Electronically Signed On 03-31-2018 19:46:30 EST by Ryne Wesley
[2018-03-31 22:00] VITALS: BP 126/73
[2018-04-01 06:00] VITALS: BP 124/78
[2018-04-01 06:48] LABS: HEMATOCRIT 29.7 % (36.0-47.0); HEMOGLOBIN 9.6 g/dl (12.0-15.5); MEAN CORPUSCULAR HEMOGLOBIN 29.1 pg (27.0-33.0); MEAN CORPUSCULAR HGB CONC 32.3 g/dl (32.0-36.5); PLATELET COUNT, AUTOMATED 269 10^3/uL (150-450)
[2018-04-01 07:14] LABS: BLOOD UREA NITROGEN 4 MG/DL (7-18); CALCIUM LEVEL 7.8 MG/DL (8.5-10.1); CARBON DIOXIDE LEVEL 23 MEQ/L (21-32); CHLORIDE LEVEL 112 MEQ/L (98-107); CREATININE FOR GFR 0.54 MG/DL (0.55-1.30); GLOMERULAR FILTRATION RATE > 60.0 (>51); GLUCOSE, FASTING 75 MG/DL (70-100); MAGNESIUM LEVEL 1.6 MG/DL (1.8-2.4); POTASSIUM SERUM 3.2 MEQ/L (3.5-5.1); SODIUM LEVEL 145 MEQ/L (136-145)
[2018-04-01 07:18] LABS: WHITE BLOOD COUNT 30.8 10^3/uL (4.0-10.0)
[2018-04-01 07:21] LABS: ATYPICAL LYMPH 1 % (0-5); LYMPHOCYTES 11 % (16-52); METAMYELOCYTES 1 % (0-0); MONOCYTES 2 % (0-8); NEUTROPHILS 81 % (35-75)
[2018-04-01 07:22] LABS: DOHLE BODIES 2+; PLATELET ESTIMATE NORMAL (NORMAL); TOXIC GRANULATION 1+
[2018-04-01] MEDS: PANTOPRAZOLE 40MG INJ (PROTONIX) (C9113) IV SCH (08:02)
[2018-04-01] MEDS: ASPIRIN 81 MG ENTERIC TAB PO SCH (08:02)
[2018-04-01] MEDS: POTASSIUM CHLORIDE 10 MEQ SR TABLET PO SCH ×2 (08:03→20:14)
[2018-04-01] MEDS: ENOXAPARIN 40 MG/0.4 ML SYRINGE (J1650) SC SCH (08:03)
[2018-04-01] MEDS: KCL 40MEQ in NS 1000ML 1,000 ML IV SCH (08:09)
[2018-04-01] MEDS ORDERED: MAG SULF 1GM/100ML (MAG RUN) 1 GM in APPROPRIATE DILUENT 1 EA IV ONE (09:00)
[2018-04-01] MEDS ORDERED: POTASSIUM CHLORIDE 10 MEQ SR TABLET PO ONE (09:00)
[2018-04-01 14:31] VITALS: BP 120/70
[2018-04-01 20:00] VITALS: BP 127/66
--- NOTE | 2018-04-01 22:37 | IPNPDOC ---
Text Note Date of Service The patient was seen on 04/01/18. NOTE SUBJECTIVE: Diarrhea is improving, to promblem with oral intake. no fever or chillls, no abdominal pain , no blood in diarrhea, no chest pain or sob , no cough , no nausea or vomiting. PHYSICAL EXAMINATION: VITAL SIGNS: Temperature 97, pulse 100, respiratory rate 18, blood pressure 124/68, pulse oximetry 99% on room air. GENERAL APPEARANCE: Middle aged woman, lying calmly in bed, not in any apparent distress, appears weak. She is not pale, anicteric and afebrile HEENT: Atraumatic. Neck: Supple. LUNGS: Clear to auscultation bilaterally. Chemo port appreciated on the right upper chest. CARDIOVASCULAR: S1 and 2 heard, no murmurs, rubs or gallops. ABDOMEN: Obese, soft, not tender, not distended. Bowel sounds normoactive. MUSCULOSKELETAL: Apparently within normal limits EXTREMITIES: No pedal edema, 2+ bilateral pedal pulses noted. NEUROLOGICAL: Awake, alert, oriented 3. LABORATORY DATA and Radiology : Reviewed. IMAGING: CT abdomen and pelvis without contrast: Secretions and air-fluid levels through the small bowel may be the result of ileus or enteritis. MICROBIOLOGY: Please see below. ASSESSMENT AND PLAN: Patient is a 52-year-old woman. She has medical history significant for left breast cancer. She is currently taking chemotherapy. Her last chemotherapy dose was 03/23/2018. 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 Patient recently diagnosed with breast cancer in December 2017. She has left portal placed February 23 for administration of chemotherapeutic agents. Patient reports frequent diarrhea anytime she receives her chemotherapy. Her last chemotherapy was administered on March 23 this year. She denies any nausea or vomiting. No dizziness, loss of consciousness. She denies any fever or chills, palpitations or chest pains. She denies any shortness of breath. No cough. She denies any change in her urinary habits. She was evaluated with IV fluids in the emergency room and patient cu rrently still having diarrhea. Plan is to have her admitted. Patient is a 52-year-old woman with CA breast, comes in with 7 days of diarrhea post chemotherapy. Exam is unremarkable. Her imaging is unremarkable, labs, with elevated white count but no systemic signs of infection. Diarrhea and Dehydration Likely secondary to chemotherapy ileus and enteritis. GI panel negative, no fever, blood cultures negative till date Will not give any antibiotics at present will stop IVF and encourage po intake Hypokalemia continue potassium supplementation Leucocytosis probably due to Neupogen which she got 1 week ago and reactive to diarrhea with dehydration will monitor. Breast CA. Locally advanced breast cancer, invasive ductal carcinoma, grade II, ER positive, [place] positive, and HER2 positive. With right breast MRI 01/2018 showing a 4.7 x 3.2 x 3.6 left breast upper outer quadrant mass with left axillary lymphadenopathy cT2/N1 invasive ductal carcinoma. Started neoadjuvant docetaxel/carboplatin/pertuzumab/trastuzumab chemotherapy Received second cycle on Mar [address] Lynn. Discussed the pateint with Dr Lynn will follow up on discharge. DVT prophylaxis with subcutaneous enoxaparin. VS,Fishbone, I+O VS, Fishbone, I+O Laboratory Tests 04/01/18 06:10 Red Blood Count 3.30 L, Mean Corpuscular Volume 90.0, Mean Corpuscular Hemoglobin 29.1, Mean Corpuscular Hemoglobin Concent 32.3, Red Cell Distribution Width 13.9, Calcium Level 7.8 L Vital Signs Date Time Temp Pulse Resp B/P (MAP) Pulse Ox O2 Delivery O2 Flow Rate FiO2 04/01/18 14:31 96.9 97 16 120/70 (87) 98 Room Air I&O- Last 24 Hours up to 6 AM 04/01/18 06:00 Intake Total 1140 ml Output Total 2000 ml Balance -860 ml CODY ALANIZ MD Apr 01, 2018 22:37
[2018-04-02 06:00] VITALS: BP 109/67
[2018-04-02 06:52] LABS: HEMATOCRIT 30.6 % (36.0-47.0); HEMOGLOBIN 9.9 g/dl (12.0-15.5); MEAN CORPUSCULAR HEMOGLOBIN 29.3 pg (27.0-33.0); MEAN CORPUSCULAR HGB CONC 32.4 g/dl (32.0-36.5); MEAN CORPUSCULAR VOLUME 90.5 fl (80.0-96.0); PLATELET COUNT, AUTOMATED 282 10^3/uL (150-450); RED BLOOD COUNT 3.38 10^6/uL (4.00-5.40)
[2018-04-02 06:53] LABS: HEMATOCRIT 31.1 % (36.0-47.0); HEMOGLOBIN 10.1 g/dl (12.0-15.5); MEAN CORPUSCULAR HEMOGLOBIN 29.5 pg (27.0-33.0); MEAN CORPUSCULAR HGB CONC 32.5 g/dl (32.0-36.5); MEAN CORPUSCULAR VOLUME 90.9 fl (80.0-96.0); PLATELET COUNT, AUTOMATED 269 10^3/uL (150-450); RED BLOOD COUNT 3.42 10^6/uL (4.00-5.40); WHITE BLOOD COUNT 22.9 10^3/uL (4.0-10.0)
[2018-04-02 07:13] LABS: BLOOD UREA NITROGEN 3 MG/DL (7-18); CALCIUM LEVEL 8.3 MG/DL (8.5-10.1); CARBON DIOXIDE LEVEL 23 MEQ/L (21-32); CHLORIDE LEVEL 112 MEQ/L (98-107); CREATININE FOR GFR 0.51 MG/DL (0.55-1.30); GLOMERULAR FILTRATION RATE > 60.0 (>51); GLUCOSE, FASTING 84 MG/DL (70-100); MAGNESIUM LEVEL 2.1 MG/DL (1.8-2.4); POTASSIUM SERUM 3.3 MEQ/L (3.5-5.1); SODIUM LEVEL 144 MEQ/L (136-145)
[2018-04-02 07:20] LABS: LYMPHOCYTES 10 % (16-52); METAMYELOCYTES 1 % (0-0); MONOCYTES 3 % (0-8); NEUTROPHILS 86 % (35-75); PLATELET ESTIMATE NORMAL (NORMAL)
[2018-04-02 07:21] LABS: TOXIC GRANULATION 1+
[2018-04-02] MEDS: ENOXAPARIN 40 MG/0.4 ML SYRINGE (J1650) SC SCH (08:44)
[2018-04-02] MEDS: PANTOPRAZOLE 40MG INJ (PROTONIX) (C9113) IV SCH (08:44)
[2018-04-02] MEDS: POTASSIUM CHLORIDE 10 MEQ SR TABLET PO SCH (08:45)
[2018-04-02] MEDS: ASPIRIN 81 MG ENTERIC TAB PO SCH (08:45)
--- NOTE | 2018-04-02 22:59 | DS.PDOC ---
Discharge Summary General Date of Admission Mar 30, 2018 at 21:30 Date of Discharge 04/02/18 Attending Physician: CODY ALANIZ MD Discharge Summary PROCEDURES PERFORMED DURING STAY: [None]. DISCHARGE DIAGNOSES: Chemotherapy related diarrhea and dehydration Electrolyte immbalance Small bowel ileus or enteritis due to chemotherapy Breast cancer Leucocytosis COMPLICATIONS/CHIEF COMPLAINT: Dehydration;Generalized Weakness;Leukocytosis. HISTORY OF PRESENT ILLNESS: please see history and physical HOSPITAL COURSE: Patient is a 52-year-old woman. She has medical history significant for left breast cancer. She is currently taking chemotherapy. Her last chemotherapy dose was 03/23/2018. 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 Patient recently diagnosed with breast cancer in December 2017. She has left portal placed February 23 for administration of chemotherapeutic agents. Patient reports frequent diarrhea anytime she receives her chemotherapy. Her last chemotherapy was administered on March 23 this year. She denies any nausea or vomiting. No dizziness, loss of consciousness. She denies any fever or chills, palpitations or chest pains. She denies any shortness of breath. No cough. She denies any change in her urinary habits. She was evaluated with IV fluids in the emergency room and patient currently still having diarrhea. Plan is to have her admitted. Patient is a 52-year-old woman with CA breast, comes in with 7 days of diarrhea post chemotherapy. Exam is unremarkable. Her imaging is unremarkable, labs, with elevated white count but no systemic signs of infection. Diarrhea and Dehydration Likely secondary to chemotherapy ileus and enteritis. GI panel negative, no fever, blood cultures negative till date Will not give any antibiotics Hypokalemia continue potassium supplementation Leucocytosis Improving probably due to Neupogen which she got 1 week ago and reactive to diarrhea with dehydration will monitor. Breast CA. Locally advanced breast cancer, invasive ductal carcinoma, grade II, ER positive, [place] positive, and HER2 positive. With right breast MRI 01/2018 showing a 4.7 x 3.2 x 3.6 left breast upper outer quadrant mass with left axillary lymphadenopathy cT2/N1 invasive ductal carcinoma. Started neoadjuvant docetaxel/carboplatin/pertuzumab/trastuzumab chemotherapy Received second cycle on Mar [address] Lynn. Discussed the patient with Dr Lynn will follow up on discharge. DISCHARGE MEDICATIONS: Please see below. ALLERGIES: Please see below. PHYSICAL EXAMINATION ON DISCHARGE: VITAL SIGNS: Please see below. GENERAL APPEARANCE: Middle aged woman, lying calmly in bed, not in any apparent distress, appears weak. She is not pale, anicteric and afebrile HEENT: Atraumatic. Neck: Supple. LUNGS: Clear to auscultation bilaterally. Chemo port appreciated on the right u pper chest. CARDIOVASCULAR: S1 and 2 heard, no murmurs, rubs or gallops. ABDOMEN: Obese, soft, not tender, not distended. Bowel sounds normoactive. MUSCULOSKELETAL: Apparently within normal limits EXTREMITIES: No pedal edema, 2+ bilateral pedal pulses noted. NEUROLOGICAL: Awake, alert, oriented 3. LABORATORY DATA: Please see below. IMAGING: CT abdomen and pelvis without contrast: Secretions and air-fluid levels through the small bowel may be the result of ileus or enteritis. ACTIVITY: [As tolerated]. DIET: BRAT DISPOSITION: 01 Home, Self-Care. DISCHARGE INSTRUCTIONS: Follow up Dr Lynn on04/03/18 Follow up with PMD in 1 week ITEMS TO FOLLOWUP ON ON OUTPATIENT: CBC DISCHARGE CONDITION: [Stable]. TIME SPENT ON DISCHARGE: Greater than 30 minutes. Vital Signs/I&Os Vital Signs Date Time Temp Pulse Resp B/P (MAP) Pulse Ox O2 Delivery O2 Flow Rate FiO2 04/02/18 06:00 97.3 87 18 109/67 (81) 98 Room Air I&O- Last 24 Hours up to 6 AM 04/02/18 06:00 Intake Total 1500 ml Output Total 1900 ml Balance -400 ml Laboratory Data Labs 24H Laboratory Tests 2 04/02/18 06:19: Immature Granulocyte % (Auto) , Nucleated Red Blood Cells % (auto) 0.2H, Neutrophils 86H, Lymphocytes (Manual) 10L, Monocytes (Manual) 3, Metamyelocytes 1H, Toxic Granulation 1+, Platelet Estimate NORMAL, Red Blood Cell Morphology NORMAL, Anion Gap 9, Glomerular Filtration Rate > 60.0, Blood Urea Nitrogen 3L, Creatinine 0.51L, Sodium Level 144, Potassium Level 3.3L, Chloride Level 112H, Carbon Dioxide Level 23, Calcium Level 8.3L, Magnesium Level 2.1 CBC/BMP Laboratory Tests 04/02/18 06:19 Red Blood Count 3.42 L, Mean Corpuscular Volume 90.9, Mean Corpuscular Hemoglobin 29.5, Mean Corpuscular Hemoglobin Concent 32.5, Red Cell Distribution Width 14.4, Calcium Level 8.3 L Microbiology Microbiology 03/31/18 Blood Culture - Preliminary, Resulted No Growth after 48 hours. All Specime... 03/30/18 Blood Culture - Preliminary, Resulted No Growth after 72 hours. All specime... 03/30/18 Blood Culture - Preliminary, Resulted No Growth after 72 hours. All specime... 03/30/18 Gastrointestinal Tract Panel (PCR) - Final, Complete Discharge Medications Scheduled (Multi Vitamin) 1 Tab Tab, 1 TAB PO DAILY, (Reported) (Probiotic) 1 Tab Tab, 1 TAB PO DAILY, (Reported) Aspirin (Ecotrin Low Strength) 81 Mg Tab, 81 MG PO DAILY, (Reported) Dexamethasone (Dexamethasone) 4 Mg Tab, 8 MG PO ASDIRECTED, (Reported) TAKE 8MG BID FOR 3 DAYS STARTING ONE DAY PRIOR TO CHEMO, THE DAY OF CHEMO AND DAY AFTER CHEMO Linseed Oil (Flaxseed Oil) 1,000 Mg Cap, 3,000 MG PO DAILY, (Reported) Magnesium Oxide (Magnesium Oxide 400) 400 Mg Tab, 400 MG PO DAILY, (Reported) Potassium Chloride (K-Tab) 10 Meq Tab, 2 TAB PO DAILY Scheduled PRN Acetaminophen (Acetaminophen Extra Stren) 500 Mg Tab, 500 MG PO Q6H PRN for PAIN / FEVER, (Reported) Fluticasone Propionate (Flonase Allergy Relief) 50 Mcg/Act Spr, 2 SPRAY NARES DAILY PRN for NASAL CONGESTION, (Reported) Hydrocortisone (Hydrocortisone) 1 % Cre, 1 DOSE TOP BID PRN for RASH, (Reported) APPLY TO CHEST NEEEDED Melatonin (Melatonin) 5 Mg Tab, 5 MG PO QHS PRN for SLEEP, (Reported) Ondansetron HCl (Ondansetron HCl) 8 Mg Tab, 8 MG PO Q12H PRN for NAUSEA, (Reported) Oxycodone/Acetaminophen (Oxycodone/Acetaminophen 5-325 mg) 1 Tab Tab, 1 TAB PO TIDP PRN for pain Prochlorperazine Maleate (Prochlorperazine Maleate) 10 Mg Tab, 10 MG PO Q6H PRN for NAUSEA, (Reported) Allergies Coded Allergies: Shellfish Allergy (Verified Allergy, Severe, THROAT SWELLING, 02/20/18) Latex (Verified Allergy, Intermediate, MILD RASH, 12/7/18) Codeine (Verified Adverse Reaction, Mild, NAUSEA AND VOMITING, 02/20/18) SEASONAL ALLERGIES (Verified Adverse Reaction, Mild, STUFFY NOSE AND WATERY EYES, 02/20/18) CODY ALANIZ MD Apr 02, 2018 22:59
== END 2018-04-02 14:50 | disposition home or self-care (01) | DRG 392 ==
LOC: M ED 15:51 → M ED INP 21:30 → M MS4PR 03-31 00:08
PROVIDERS: ADMIT Hospitalist; ATTEND Internal Medicine Nephrology
DX: R19.7 Diarrhea, unspecified (principal); K56.7 Ileus, unspecified; D72.829 Elevated white blood cell count, unspecified; E86.0 Dehydration; C50.912 Malignant neoplasm of unspecified site of left female breast; M79.7 Fibromyalgia; M16.12 Unilateral primary osteoarthritis, left hip; Z79.82 Long term (current) use of aspirin; Z79.899 Other long term (current) drug therapy; Z88.5 Allergy status to narcotic agent; Z91.040 Latex allergy status; Z91.013 Allergy to seafood; Z92.21 Personal history of antineoplastic chemotherapy; E87.6 Hypokalemia

== ENCOUNTER 2018-04-22 11:23 | Emergency (ER) | payer OTHER ==
[~2018-04-22] VITALS: Ht 167.6 cm; Wt 69.5 kg
[~2018-04-22 11:23] MED LIST changes: +HYDR1CRE2 TOP
[2018-04-22 12:12] LABS: HEMATOCRIT 31.8 % (36.0-47.0); HEMOGLOBIN 10.6 g/dl (12.0-15.5); MEAN CORPUSCULAR HEMOGLOBIN 30.2 pg (27.0-33.0); MEAN CORPUSCULAR HGB CONC 33.3 g/dl (32.0-36.5); MEAN CORPUSCULAR VOLUME 90.6 fl (80.0-96.0); PLATELET COUNT, AUTOMATED 313 10^3/uL (150-450); RED BLOOD COUNT 3.51 10^6/uL (4.00-5.40); WHITE BLOOD COUNT 20.9 10^3/uL (4.0-10.0)
[2018-04-22] MEDS ORDERED: NS 1,000 ML IV ONE ×2 (12:15→14:30)
[2018-04-22 12:33] LABS: ALBUMIN 3.6 GM/DL (3.2-5.2); ALT/SGPT 159 U/L (12-78); BILIRUBIN,DIRECT 0.1 MG/DL (0.0-0.2); BILIRUBIN,TOTAL 0.4 MG/DL (0.2-1.0); BLOOD UREA NITROGEN 5 MG/DL (7-18); CALCIUM LEVEL 8.3 MG/DL (8.5-10.1); CARBON DIOXIDE LEVEL 26 MEQ/L (21-32); CHLORIDE LEVEL 101 MEQ/L (98-107); CK-MB VALUE MASS < 1.0 NG/ML (<3.6); CPK CREATINE PHOSPHOKINASE 49 U/L (26-192); FREE T4 1.16 NG/DL (0.76-1.46); GLOMERULAR FILTRATION RATE > 60.0 (>51); GLUCOSE, FASTING 113 MG/DL (70-100); LIPASE 137 U/L (73-393); MB/CK RELATIVE INDEX 2.04 (< OR =4); POTASSIUM SERUM 3.8 MEQ/L (3.5-5.1); SODIUM LEVEL 136 MEQ/L (136-145); TOTAL PROTEIN 6.7 GM/DL (6.4-8.2); TROPONIN I < 0.02 NG/ML (< 0.10)
[2018-04-22 12:57] LABS: LYMPHOCYTES 9 % (16-52); MONOCYTES 5 % (0-8); NEUTROPHILS 85 % (35-75)
[2018-04-22 12:58] LABS: PLATELET ESTIMATE NORMAL (NORMAL)
[2018-04-22] MEDS: GASTROGRAFIN SOLUTION 30ML PO SCH ×2 (13:54→14:21)
[2018-04-22] MEDS ORDERED: ISOVUE-370 76% 100ML VIAL (Q9967) As Ordered ONE (14:46)
--- NOTE | 2018-04-22 15:51 | REP ---
CT abdomen and pelvis with IV and oral contrast: History: Abdomen pain and diarrhea. Comparison CT study March 30, 2018. CT contrast dose: 100 mL of intravenous Isovue [address] findings: Digital preliminary interior design consultant radiograph shows an unremarkable bowel gas pattern. There are surgical clips in the right upper quadrant and right mid abdomen. Axial CT images demonstrate that the lung bases are essentially clear. There are multiple sharply circumscribed low density nonenhancing lesions in the liver consistent with cysts. These range in size up to a complex shaped cyst in the inferior aspect of the right lobe of the liver 4.7 cm in greatest diameter. There is no change in the interval since the March 30, 2018 study. They are also unchanged from January 22, [address] study. No liver mass lesion is seen. Spleen is homogeneous in texture normal in size. No pancreatic abnormalities observed on either side. Normal adrenal glands are seen bilaterally. The kidneys enhance symmetrically. No hydronephrosis or nephrolithiasis is seen. Today's CT study demonstrates mural thickening affecting the sigmoid colon and rectum consistent with enterocolitis. There is also evidence of mild mural thickening in the terminal ileum and cecum. There is an undigested radiopaque capsule or tablet in the cecum. There is a right lower quadrant mesenteric lymph node measuring 9 mm in short axis dimension. Several other smaller lymph nodes are seen in the right lower quadrant. Once again, the appendix cannot be visualized however there is no inflammatory evidence to suggest appendicitis adjacent to the cecal tip. No evidence of free air or abnormal fluid collection. No abdominal wall defect is seen. Uterus is surgically absent. No ovarian abnormality. Impression: Enterocolitis pattern with areas of mural thickening involving the sigmoid and rectosigmoid colon and rectum as well as the terminal ileum and cecum. There is one slightly hypertrophied mesenteric lymph node in the right lower quadrant. Findings may reflect Crohn's disease or other enterocolitis. Electronically Signed by Elgin Noyola MD 04/22/2018 07:20 P
[2018-04-22 16:00] VITALS: BP 118/60
[2018-04-22 16:08] VITALS: O2SAT 98
[2018-04-22] MEDS ORDERED: metroNIDAZOLE (FLAGYL) 500 MG TAB PO ONE (16:15)
[2018-04-22] MEDS ORDERED: CIPROFLOXACIN 500 MG TAB PO ONE (16:15)
[2018-04-22] MEDS ORDERED: CIPR-249 PO (16:17)
[2018-04-22] MEDS ORDERED: FLAG500T PO (16:18)
--- NOTE | 2018-04-22 21:12 | ECGEPIP ---
Stationary ECG Study [facility] - ED Test Date: 2018-04-22 Pat Name: JOSE STRINGER Department: Room: - Gender: F Field Hauler: : 1965 Requested By: PATSY Blackwell Order Number: [id number] Reading MD: Delroy Alba Measurements Intervals [place] Rate: 112 P: 40 OK: 156 QRS: 6 QRSD: 81 T: 53 QT: 336 QTc: 460 Interpretive Statements SINUS TACHYCARDIA BASELINE ARTIFACT AFFECTS INTERPRETATION Electronically Signed On 04-22-2018 21:12:33 EST by Delroy Alba
--- NOTE | 2018-04-23 12:30 | ED PDOC ---
Post-Departure Follow-Up gasper phelps faxed formal report of ct abd/p for fu Ryne King MD Apr 23, 2018 12:29
[2018-05-04] MEDS ORDERED: K-TA10TA2 PO (10:16)
[2018-05-04] MEDS ORDERED: LOMO2.5T PO (11:54)
== END 2018-04-22 16:37 | disposition home or self-care (01) ==
LOC: M ED 11:23
DX: E86.0 Dehydration (principal); K52.9 Noninfective gastroenteritis and colitis, unspecified; M19.90 Unspecified osteoarthritis, unspecified site; M79.7 Fibromyalgia
CPT/HCPCS: 74177; 80048; 80076; 82550; 82553; 83690; 83735; 84439; 84443; 84484; 85025; 93005; 93041; 94760; 96360; 96361; 99285; Q9963; Q9967

== ENCOUNTER → 2018-05-14 | Outpatient (CLI) | payer OTHER ==
[~2018-05-14] MED LIST changes: +CIPR-249 PO; +FLAG500T PO; +LOMO2.5T PO
--- NOTE | 2018-05-14 14:07 | REP ---
Clinical: Right lower extremity pain . Technique: Christiansen scale and color Doppler evaluation using linear high frequency transducer. Findings: Ultrasound examination of the right lower extremity deep venous structures from the common femoral vein to the popliteal vein demonstrates normal compressibility flow and wave patterns in response to respiration and augmentation. There is no evidence for deep venous thrombosis. Impression: No evidence for deep venous thrombosis. Electronically Signed by Arnoldo Gonsalves MD 05/14/2018 01:59 P
== END ==
LOC: M RAD 13:22
PROVIDERS: ATTEND Internal Medicine Hematology & Oncology
DX: M79.604 Pain in right leg (principal); C50.919 Malignant neoplasm of unspecified site of unspecified female breast

== ENCOUNTER → 2018-05-18 | Outpatient (CLI) | payer OTHER ==
--- NOTE | 2018-05-19 23:25 | ECHO ---
DATE OF PROCEDURE: 05/18/2018 REFERRING PHYSICIAN: Hazel Lynn MD INDICATION: Chemotherapy drugs that may affect the heart. HEIGHT: 157 cm WEIGHT: 67 kg 2D MEASUREMENTS: Left ventricle diastole: 5.0 cm Ventricular septum: 0.99 cm Posterior wall: 0.92 cm Aortic root: 3.2 cm Aortic annulus: 2.0 cm Left atrium: 3.1 cm Left atrial volume index: 19 Inferior vena cava: 1.6 cm DOPPLER MEASUREMENTS: Aortic valve velocity: 115 cm/s LVOT velocity: 98.5 cm/s LVOT VTI: 17.7 cm Mitral E velocity: 60.1 cm/s Mitral A velocity: 63.5 cm/s Mild tricuspid regurgitation. Estimated right ventricle systolic pressure: 25-30 mmHg assuming a right atrial pressure of 5-10 mmHg. Very mild pulmonic regurgitation. MITRAL ANNULAR TISSUE DOPPLER: E prime septal: 5.2 cm/s DESCRIPTION: Rhythm was sinus. Image quality was good. No pericardial effusion. This was a 2D, M-mode, color flow Doppler and pulse wave Doppler examination that included mitral annular tissue Doppler. CONCLUSIONS: 1. Preserved overall left ventricle (LV) systolic function. Left ventricular ejection fraction (LVEF) 50% (3D). Normal regional LV wall motion and wall thickening. Grade 1 left ventricle (LV) diastolic dysfunction. 2. Otherwise normal appearing echocardiogram Doppler findings.
== END ==
LOC: M CARPUL 08:07
PROVIDERS: ATTEND Internal Medicine Medical Oncology
DX: C50.919 Malignant neoplasm of unspecified site of unspecified female breast (principal)

== ENCOUNTER 2018-05-28 15:17 | Emergency (ER) | payer OTHER ==
[~2018-05-28] VITALS: Ht 167.6 cm; Wt 69.2 kg
[~2018-05-28 15:17] MED LIST changes: +FLON1SPR
[2018-05-28] MEDS ORDERED: NS 1,000 ML IV SCH (16:53)
[2018-05-28] MEDS ORDERED: ONDANSETRON 4MG/2ML VIAL (J2405) IV ONE (17:00)
[2018-05-28] MEDS ORDERED: PANTOPRAZOLE 40MG INJ (PROTONIX) (C9113) IV ONE (17:00)
--- NOTE | 2018-05-28 17:34 | REP ---
CT of the abdomen pelvis without IV and oral contrast: Comparison is 04/22/2018. The visualized lung bunn are unremarkable. There are multiple hepatic cysts, unchanged from the comparison study. The hepatic parenchyma is otherwise unremarkable. There are surgical clips in the gallbladder fossa. This is unchanged. Pancreas and spleen are normal size and unchanged and unremarkable. The adrenals and unenhanced kidneys are unremarkable. Abdominal aorta is unremarkable. There is no retroperitoneal adenopathy or mass. There is no bowel distension or obstruction. There is no bowel wall thickening. There is no ascites. Pelvis: There is a hysterectomy. Vaginal cuff and adnexa are unremarkable. The appendix is unremarkable. There is no ascites or adenopathy. The pelvic bowel loops are unremarkable. The bladder is unremarkable. Impression: The Essentially negative CT study of the abdomen and pelvis. There are multiple hepatic cysts, unchanged. Cholecystectomy. Hysterectomy. No adenopathy, ascites or mass. No bowel distension or obstruction or wall thickening. Electronically Signed by Bernardino Rubio MD 05/28/2018 05:25 P
--- NOTE | 2018-05-28 17:37 | REP ---
The right tibia-fibula four views : There is no fracture or dislocation. Mineralization and joint spaces are normal. There are no calcifications or foreign bodies. Impression: Negative right tibia-fibula . Electronically Signed by Bernardino Rubio MD 05/28/2018 05:28 P
[2018-05-28 19:46] LABS: HEMATOCRIT 29.5 % (36.0-47.0); HEMOGLOBIN 9.5 g/dl (12.0-15.5); MEAN CORPUSCULAR HEMOGLOBIN 31.5 pg (27.0-33.0); MEAN CORPUSCULAR HGB CONC 32.2 g/dl (32.0-36.5); MEAN CORPUSCULAR VOLUME 97.7 fl (80.0-96.0); PLATELET COUNT, AUTOMATED 235 10^3/uL (150-450); RED BLOOD COUNT 3.02 10^6/uL (4.00-5.40)
[2018-05-28 19:47] LABS: ALBUMIN 3.4 GM/DL (3.2-5.2); ALT/SGPT 24 U/L (12-78); BILIRUBIN,DIRECT 0.2 MG/DL (0.0-0.2); BILIRUBIN,TOTAL 0.9 MG/DL (0.2-1.0); BLOOD UREA NITROGEN 13 MG/DL (7-18); CARBON DIOXIDE LEVEL 29 MEQ/L (21-32); CHLORIDE LEVEL 105 MEQ/L (98-107); CREATININE FOR GFR 0.48 MG/DL (0.55-1.30); GLOMERULAR FILTRATION RATE > 60.0 (>51); GLUCOSE, FASTING 84 MG/DL (70-100); LIPASE 256 U/L (73-393); POTASSIUM SERUM 3.4 MEQ/L (3.5-5.1); SODIUM LEVEL 141 MEQ/L (136-145); TOTAL PROTEIN 5.9 GM/DL (6.4-8.2)
[2018-05-28 19:56] LABS: WHITE BLOOD COUNT 35.2 10^3/uL (4.0-10.0)
[2018-05-28 20:28] LABS: LYMPHOCYTES 3 % (16-52); METAMYELOCYTES 1 % (0-0); MYELOCYTES 4 % (0-0); NEUTROPHILS 82 % (35-75)
[2018-05-28 20:29] LABS: ANISOCYTOSIS 1+; PLATELET ESTIMATE NORMAL (NORMAL); TEAR DROP CELLS 1+
[2018-05-28 20:35] VITALS: BP 106/58
[2018-05-28] MEDS ORDERED: SODIUM CHLORIDE 0.9% INJ 10 ML SYR IV PRN (21:00)
[2018-06-03] MEDS ORDERED: K-TA10TA2 PO (09:16)
[2018-06-15] MEDS ORDERED: K-TA10TA2 PO (14:44)
== END 2018-05-28 21:05 | disposition home or self-care (01) ==
LOC: M ED 15:17
DX: R53.1 Weakness (principal); D72.829 Elevated white blood cell count, unspecified; R10.9 Unspecified abdominal pain; R51 Headache; C50.019 Malignant neoplasm of nipple and areola, unspecified female breast; Z79.899 Other long term (current) drug therapy; Z88.5 Allergy status to narcotic agent; Z91.040 Latex allergy status; Z91.013 Allergy to seafood
CPT/HCPCS: 73590; 74176; 80048; 80076; 81001; 83690; 85025; 87086; 96374; 96375; 99284; C9113; J2405

== ENCOUNTER → 2018-05-29 | Outpatient (CLI) | payer OTHER ==
[~2018-05-29] MED LIST changes: +ASPI81TAEC PO; +BACITAB PO; +DOCU100C16 PO; +IMOD2TAB16 PO; +KLOR10TA76 PO; +PERC5TAB12 PO; +VITMTA PO
--- NOTE | 2018-05-29 12:21 | REP ---
Right lower extremity deep vein duplex ultrasound: The deep veins demonstrate normal compression, normal Doppler color flow and normal Doppler waveforms with respiration and augmentation from the popliteal vein to the common femoral vein. Impression: There is no right lower extremity deep vein thrombus. Electronically Signed by Bernardino Rubio MD 05/29/2018 12:12 P
== END ==
LOC: M RAD 11:15
PROVIDERS: ATTEND Nurse Practitioner Family
DX: M79.604 Pain in right leg (principal)

== ENCOUNTER 2018-06-04 14:28 | Inpatient (IN) | payer OTHER ==
[~2018-06-04] VITALS: Ht 167.6 cm; Wt 65.9 kg
[~2018-06-04 14:28] MED LIST changes: -ASPI81TAEC PO; -BACITAB PO; -DOCU100C16 PO; -IMOD2TAB16 PO; -KLOR10TA76 PO; -PERC5TAB12 PO; -VITMTA PO
[2018-06-04] MEDS ORDERED: POTASSIUM CHLORIDE 10 MEQ SR TABLET PO ONE ×3 (14:45→20:00)
[2018-06-04] MEDS: KCL 10MEQ/100ML SWI (KRUN) 10 MEQ in APPROPRIATE DILUENT 1 EA IV SCH ×2 (15:27→16:54)
[2018-06-04 19:47] LABS: BLOOD UREA NITROGEN 3 MG/DL (7-18); CALCIUM LEVEL 8.3 MG/DL (8.5-10.1); CARBON DIOXIDE LEVEL 25 MEQ/L (21-32); CHLORIDE LEVEL 109 MEQ/L (98-107); CREATININE FOR GFR 0.59 MG/DL (0.55-1.30); GLOMERULAR FILTRATION RATE > 60.0 (>51); GLUCOSE, FASTING 79 MG/DL (70-100); POTASSIUM SERUM 2.8 MEQ/L (3.5-5.1); SODIUM LEVEL 142 MEQ/L (136-145)
[2018-06-04] MEDS ORDERED: KCL 10MEQ IN STERILE WATER 100ML As Ordered ONE (19:53)
[2018-06-04] MEDS ORDERED: KCL 10MEQ/100ML SWI (KRUN) 10 MEQ in APPROPRIATE DILUENT 1 EA IV ONE (20:00)
[2018-06-04] MEDS ORDERED: ACETAMINOPHEN TAB 650MG DOSE (2X325MG) PO PRN (20:30)
[2018-06-04] MEDS ORDERED: MORPHINE 4 MG/ML 1ML VIAL/SYRINGE (J2270) IV PRN (20:30)
[2018-06-04] MEDS ORDERED: PERCOCET 5MG/325MG TAB PO PRN (20:30)
[2018-06-04] MEDS ORDERED: ONDANSETRON 4 MG TAB (S0181) PO PRN (20:30)
--- NOTE | 2018-06-04 20:50 | HPEPDOC ---
[facility] Medical History & Physical Date of Admission Jun 04, 2018 History and Physical CHIEF COMPLAINT: CHEMO INDUCED DIARRHEA AND HYPOKALEMIA HISTORY OF PRESENT ILLNESS: This is a 52 yo female with hx of left breast ca, currently receiving chemo, last session was May 25, 2018, who presented to the ed for diarrhea and weakness. She was found to be hypokalemia on bmp here. This is recurrent for her usually after chemo. Usually resolved with immodium, but patient want to see if the diarrhea would stop on its own, but it didn't. Her last BM was this morning. She denied dizziness, loss of consciousness, fever or chills, palpitations or ch est pains, shortness of breath, No cough, change in urinary habits. PAST MEDICAL HISTORY: left breast cancer chemo induced diarrhea fibromyalgia arthritis PAST SURGICAL HISTORY: 1. Hysterectomy without oophorectomy. 2. Left knee surgery for repair of torn ligaments. 3. Right finger amputation from trauma. 4. Cholecystectomy. SOCIAL HISTORY: Marital status: . 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 Tobacco use: Denies ETOH: Denies Illicit drug use: Denies Tattoos done unprofessionally: None. IV drug use: Denies FAMILY HISTORY: Father: Alive, diagnosed with liver cancer Mother: Alive, diagnosed with hypertension, thyroid disease and colon cancer Siblings: Sister with diabetes ALLERGIES: Please see below. REVIEW OF SYSTEMS: All 14 point ROS negative except for what's stated in HPI HOME MEDICATIONS: Please see below. Physical Exam GEN: NAD , normal built HEENT: normocephalic, atraumatic, PERRLA, EOMI, external ears appears normal, neck supple, no pharyngeal erythema CVS : normal S1, S2 no murmur, rubs or gallops , PMI nondisplaced RESP: no rals, rhonchi, crackles, or wheezes, LCTAB ABD - +BS, soft, mild tenderness in left lower quadrant, ND , no cva tenderness MSK no joint swelling, FROM, no muscle tenderness Neuro no focal deficit, AOAX3 Lymphatics- no lymphedema, no lymphadenopathy in cervical and supraclavicular chains Psych- normal mood and affect, good judgement and insight LABORATORY DATA: See below. IMAGING: MICROBIOLOGY: Please see below. ASSESSMENT and plan f/u GI panel - if negative for infection , start immodium c/w potassium replacement f/u repeat bmp at 1am c/.w ivf at 80 cc/hr for now f/u cbc and ekg (wasn't done by ed) dvt ppx fulol code, from home , no svc Vital Signs Vital Signs Date Time Temp Pulse Resp B/P (MAP) Pulse Ox O2 Delivery O2 Flow Rate FiO2 06/04/18 19:00 96 16 128/75 (92) 100 Room Air 06/04/18 18:45 97.0 Laboratory Data Labs 24H Laboratory Tests 2 06/04/18 18:59: Anion Gap 8, Glomerular Filtration Rate > 60.0, Blood Urea Nitrogen 3L, Creatinine 0.59, Sodium Level 142, Potassium Level 2.8*L, Chloride Level 109H, Carbon Dioxide Level 25, Calcium Level 8.3L CBC/BMP Laboratory Tests 06/04/18 18:59 Calcium Level 8.3 L Home Medications Scheduled (Multi Vitamin) 1 Tab Tab, 1 TAB PO DAILY (Probiotic) 1 Tab Tab, 1 TAB PO DAILY Aspirin (Ecotrin Low Strength) 81 Mg Tab, 81 MG PO DAILY Dexamethasone (Dexamethasone) 4 Mg Tab, 8 MG PO ASDIRECTED TAKE 8MG BID FOR 3 DAYS STARTING ONE DAY PRIOR TO CHEMO, THE DAY OF CHEMO AND DAY AFTER CHEMO Linseed Oil (Flaxseed Oil) 1,000 Mg Cap, 3,000 MG PO DAILY Potassium Chloride (K-Tab) 10 Meq Tab, 2 TAB PO DAILY Scheduled PRN Acetaminophen (Acetaminophen Extra Stren) 500 Mg Tab, 500 MG PO Q6H PRN for PAIN / FEVER Fluticasone Propionate (Flonase Allergy Relief) 50 Mcg/Act Spr, 2 SPRAY NARES DAILY PRN for NASAL CONGESTION Ondansetron HCl (Ondansetron HCl) 8 Mg Tab, 8 MG PO Q12H PRN for NAUSEA Oxycodone/Acetaminophen (Oxycodone/Acetaminophen 5-325 mg) 1 Tab Tab, 1 TAB PO TIDP PRN for pain Prochlorperazine Maleate (Prochlorperazine Maleate) 10 Mg Tab, 10 MG PO Q6H PRN for NAUSEA Allergies Coded Allergies: Shellfish Allergy (Verified Allergy, Severe, THROAT SWELLING, 02/20/18) Latex (Verified Allergy, Intermediate, MILD RASH, 02/20/18) Codeine (Verified Adverse Reaction, Mild, NAUSEA AND VOMITING, 02/20/18) SEASONAL ALLERGIES (Verified Adverse Reaction, Mild, STUFFY NOSE AND WATERY EYES, 02/20/18) KIRTI DARDEN MD Jun 04, 2018 20:50
[2018-06-04] MEDS ORDERED: NS 1,000 ML IV SCH (21:00)
[2018-06-04] MEDS ORDERED: ASPI81TAEC PO (21:29)
[2018-06-04] MEDS ORDERED: VITMTA PO (21:29)
[2018-06-04] MEDS ORDERED: PERC5TAB12 PO (21:29)
[2018-06-04] MEDS ORDERED: KLOR10TA76 PO (21:29)
[2018-06-04] MEDS ORDERED: IMOD2TAB16 PO (21:29)
[2018-06-04] MEDS ORDERED: BACITAB PO (21:29)
[2018-06-04] MEDS ORDERED: DOCU100C16 PO (21:30)
[2018-06-04] MEDS: HEPARIN SOD (PORCINE) 5000 UNITS/ML VIAL SC SCH (23:39)
[2018-06-05 01:08] LABS: BASO # 0.1 10^3/uL (0.0-0.2); BASO % 0.2 % (0.0-1.0); HEMATOCRIT 26.4 % (36.0-47.0); HEMOGLOBIN 8.5 g/dl (12.0-15.5); LYMPH # 2.2 10^3/uL (1.5-4.5); LYMPH % 7.9 % (24.0-44.0); MEAN CORPUSCULAR HGB CONC 32.2 g/dl (32.0-36.5); MEAN CORPUSCULAR VOLUME 96.4 fl (80.0-96.0); MONO # 1.2 10^3/uL (0.0-0.8); MONO % 4.2 % (0.0-5.0); NEUTROPHILS # 23.4 10^3/uL (1.8-7.7); NEUTROPHILS % 84.3 % (36.0-66.0); PLATELET COUNT, AUTOMATED 248 10^3/uL (150-450); RED BLOOD COUNT 2.74 10^6/uL (4.00-5.40); WHITE BLOOD COUNT 27.7 10^3/uL (4.0-10.0)
[2018-06-05 01:39] LABS: BLOOD UREA NITROGEN 2 MG/DL (7-18); CARBON DIOXIDE LEVEL 23 MEQ/L (21-32); CHLORIDE LEVEL 113 MEQ/L (98-107); CREATININE FOR GFR 0.52 MG/DL (0.55-1.30); GLOMERULAR FILTRATION RATE > 60.0 (>51); GLUCOSE, FASTING 83 MG/DL (70-100); MAGNESIUM LEVEL 1.7 MG/DL (1.8-2.4); POTASSIUM SERUM 3.1 MEQ/L (3.5-5.1); SODIUM LEVEL 145 MEQ/L (136-145)
[2018-06-05] MEDS ORDERED: MAG SULF 1GM/100ML (MAG RUN) 1 GM in APPROPRIATE DILUENT 1 EA IV ONE (02:00)
[2018-06-05 06:00] VITALS: BP 120/67
[2018-06-05] MEDS: HEPARIN SOD (PORCINE) 5000 UNITS/ML VIAL SC SCH ×3 (06:01→21:11)
[2018-06-05 06:16] LABS: BLOOD UREA NITROGEN 3 MG/DL (7-18); CALCIUM LEVEL 7.8 MG/DL (8.5-10.1); CARBON DIOXIDE LEVEL 22 MEQ/L (21-32); CHLORIDE LEVEL 111 MEQ/L (98-107); CREATININE FOR GFR 0.52 MG/DL (0.55-1.30); GLOMERULAR FILTRATION RATE > 60.0 (>51); GLUCOSE, FASTING 82 MG/DL (70-100); MAGNESIUM LEVEL 2.2 MG/DL (1.8-2.4); SODIUM LEVEL 143 MEQ/L (136-145)
[2018-06-05] MEDS ORDERED: POTASSIUM CHLORIDE 10 MEQ SR TABLET PO ONE (06:30)
--- NOTE | 2018-06-05 06:37 | ECGEPIP ---
Stationary ECG Study [facility] - ED Test Date: 2018-06-04 Pat Name: JOSE STRINGER Department: Room: - Gender: F Director Of Student Life: GT : 1965 Requested By: ILENE Hudson Order Number: [id number] Reading MD: Delroy Alba Measurements Intervals [place] Rate: 91 P: 11 CO: 145 QRS: 3 QRSD: 86 T: 29 QT: 369 QTc: 456 Interpretive Statements SINUS RHYTHM POSSIBLE LEFT ATRIAL ENLARGEMENT SIMILAR TO 04/22/18 Electronically Signed On 06-05-2018 6:37:15 EDT by Delroy Alba
[2018-06-05] MEDS ORDERED: KCL 10MEQ/100ML SWI (KRUN) 10 MEQ in APPROPRIATE DILUENT 1 EA IV ONE (08:00)
[2018-06-05] MEDS: KCL 40MEQ in NS 1000ML 1,000 ML IV SCH ×2 (08:20→18:09)
--- NOTE | 2018-06-05 13:52 | IPNPDOC ---
Text Note Date of Service The patient was seen on 06/05/18. NOTE SUBJECTIVE: Still has some diarrhea but says it has slowed down. Does not want to take imodium as says it makes her so blocked up that then she has to take laxative. No abdominal pain , no blood in stools, This happens everytime after chemotherapy. Says has been to the ED 3 days this week to get potassium replacements. Yesterday her potassium was so low that she was admitted. Physical Exam VITALS: As below GEN: NAD , normal built HEENT: normocephalic, atraumatic, PERRLA, EOMI, external ears appears normal, neck supple, no pharyngeal erythema CVS : normal S1, S2 no murmur, rubs or gallops , PMI nondisplaced RESP: no rals, rhonchi, crackles, or wheezes, LCTAB ABD - +BS, soft, nontender, ND , no cva tenderness MSK no joint swelling, FROM, no muscle tenderness Neuro no focal deficit, AOAX3 Lymphatics- no lymphedema, no lymphadenopathy in cervical and supraclavicular chains Psych- normal mood and affect, good judgement and insight Labs and Radiology: reviewed Assessment and plan; This is a 52 yo female with hx of left breast ca, currently receiving chemo, last session was May 25, 2018, who presented to the ed for diarrhea and weakness. She was found to be hypokalemia on bmp here. This is recurrent for her usually after chemo. Usually resolved with immodium, but patient want to see if the diarrhea would stop on its own, but it didn't. Her l ast BM was this morning. She denied dizziness, loss of consciousness, fever or chills, palpitations or chest pains, shortness of breath, No cough, change in urinary habits. Hypokalemia improving. continue replacements Chemotherapy induced diarrhea and dehydration imodium prn. IVF Hypomagnesemia replaced Breast cancer Locally advanced breast cancer, invasive ductal carcinoma, grade II, ER posi tive, [place] positive, and HER2 positive. With right breast MRI 01/2018 showing a 4.7 x 3.2 x 3.6 left breast upper outer quadrant mass with left axillary lymphadenopathy cT2/N1 invasive ductal carcinoma. On neoadjuvant docetaxel/carboplatin/pertuzumab/trastuzumab chemotherapy last was on may 25, next one due on Kacey 1st. DVT pophylaxis ordered. VS,Fishbone, I+O VS, Fishbone, I+O Laboratory Tests 06/04/18 18:59 Calcium Level 8.3 L 06/05/18 01:02 Calcium Level 8.0 L, Red Blood Count 2.74 L, Mean Corpuscular Volume 96.4 H, Mean Corpuscular Hemoglobin 31.0, Mean Corpuscular Hemoglobin Concent 32.2, Red Cell Distribution Width 17.1 H, Neutrophils (%) (Auto) 84.3 H, Lymphocytes (%) (Auto) 7.9 L, Monocytes (%) (Auto) 4.2, Eosinophils (%) (Auto) 0.0, Basophils (%) (Auto) 0.2, Neutrophils # (Auto) 23.4 H, Lymphocytes # (Auto) 2.2, Monocytes # (Auto) 1.2 H, Eosinophils # (Auto) 0.0, Basophils # (Auto) 0.1 06/05/18 05:34 Calcium Level 7.8 L Vital Signs Date Time Temp Pulse Resp B/P (MAP) Pulse Ox O2 Delivery O2 Flow Rate FiO2 06/05/18 06:00 98.8 94 17 120/67 (84) 97 06/04/18 22:45 Room Air I&O- Last 24 Hours up to 6 AM 06/05/18 06:00 Intake Total 1180 ml Output Total 400 ml Balance 780 ml CODY ALANIZ MD Jun 05, 2018 13:52
[2018-06-05 14:00] VITALS: BP 114/67
[2018-06-05 22:00] VITALS: BP 112/66
[2018-06-06] MEDS: KCL 40MEQ in NS 1000ML 1,000 ML IV SCH ×2 (04:15→14:38)
[2018-06-06] MEDS: HEPARIN SOD (PORCINE) 5000 UNITS/ML VIAL SC SCH ×3 (05:45→21:31)
[2018-06-06 06:00] VITALS: BP 123/63
[2018-06-06 06:33] LABS: BLOOD UREA NITROGEN 2 MG/DL (7-18); CALCIUM LEVEL 8.1 MG/DL (8.5-10.1); CARBON DIOXIDE LEVEL 23 MEQ/L (21-32); CHLORIDE LEVEL 114 MEQ/L (98-107); CREATININE FOR GFR 0.44 MG/DL (0.55-1.30); GLOMERULAR FILTRATION RATE > 60.0 (>51); GLUCOSE, FASTING 90 MG/DL (70-100); MAGNESIUM LEVEL 1.7 MG/DL (1.8-2.4); POTASSIUM SERUM 3.4 MEQ/L (3.5-5.1); SODIUM LEVEL 145 MEQ/L (136-145)
[2018-06-06] MEDS ORDERED: POTASSIUM CHLORIDE 10 MEQ SR TABLET PO ONE (09:00)
[2018-06-06] MEDS ORDERED: MAG SULF 1GM/100ML (MAG RUN) 1 GM in APPROPRIATE DILUENT 1 EA IV ONE (09:00)
[2018-06-06 14:00] VITALS: BP_SYST 117; BP_SYST 157; BP_DIAS 70; BP_DIAS 86
[2018-06-06] MEDS ORDERED: FLUTICASONE PROP 0.05% NASAL SPRAY 16 GM (FLONASE) PRN (18:30)
[2018-06-06] MEDS ORDERED: PROCHLORPERAZINE 5 MG TAB (S0183) PO PRN (18:30)
[2018-06-06] MEDS: ASPIRIN 81 MG ENTERIC TAB PO SCH (20:11)
[2018-06-06] MEDS: MULTIVITAMINS/MINERALS THERAP 1 TAB PO SCH (20:12)
[2018-06-06] MEDS: LACTOBACILLUS ACIDOPHILUS CAP (BACID) PO SCH (20:12)
--- NOTE | 2018-06-06 21:22 | IPN ---
DATE: 06/06/2018 The patient was seen and examined. Reported diarrhea is a bit improved. Denies any chest pain, pressure or discomfort. Denies any fevers or chills. Tolerating oral. VITAL SIGNS: Temperature 97.4, pulse 100, respirations 16, blood pressure 117/70, pulse oximetry 98% on room air. LABORATORY DATA: WBC 27.7, hemoglobin and hematocrit 8.5/26.4, platelets 248. Chemistry: Sodium 145, potassium 3.4, chloride 114, bicarbonate 23, BUN 2, creatinine 0.44. PHYSICAL EXAMINATION: GENERAL: The patient is alert, comfortable and in no acute distress. HEENT: Normocephalic, atraumatic. Pupils are equal, round and reactive. CARDIAC: Regular. S1, S2. RESPIRATORY: Bilaterally clear. ABDOMEN: Soft, nontender. Positive bowel sounds. EXTREMITIES: No edema in bilateral lower extremities. NEUROLOGIC: No focal deficits. ASSESSMENT AND PLAN: This is a 52-year-old female patient with a history of left sided breast cancer, currently receiving chemotherapy. Last session was 05/25/2018. Also with chemo induced diarrhea, fibromyalgia, arthritis. Presented to the emergency department with diarrhea, weakness and found to be in severe hypokalemia on basic metabolic panel (BMP), recurrent due to chemotherapy, usually resolved with Imodium, but the patient wants to see if her diarrhea will stop on its own. Denies any dizziness, loss of consciousness. Denies any fevers, chills, shortness of breath, or cough. 1. Hypokalemia, improved. Supplementation, IV fluids have been ordered. Likely secondary to gastrointestinal loss with diarrhea. We will monitor clinically. 2. Chemotherapy induced diarrhea and dehydration. Imodium as needed. IV fluids. Monitor electrolytes. 3. Hypomagnesemia. Supplementation ordered. 4. Breast cancer, locally advanced breast cancer, invasive ductal carcinoma grade II with ER positive and [place] positive and HER2 positive with right breast MRI 01/2018 showing a 4.7 x 3.2 x 3.6 tumor and left breast upper outer quadrant mass with left axilla lymphadenopathy, cT2N1 invasive ductal carcinoma. Currently on neoadjuvant docetaxel, carboplatin, pertuzumab, trastuzumab chemotherapy. Last dose was on 05/25/2018 and next one due on 06/15/2018. 5. Diarrhea. GI panel has been negative. 6. Leukocytosis, likely reactive to chemotherapy versus steroid induced. Followup cultures. The patient is afebrile with normal GI panel. We will send blood cultures. Monitor complete blood count (CBC). 7. Deep vein thrombosis (DVT) prophylaxis. Heparin subcutaneously. DISPOSITION: The patient is much improved. Likely discharge once electrolytes are normalized.
[2018-06-06 22:00] VITALS: BP 123/72
[2018-06-07] MEDS: KCL 40MEQ in NS 1000ML 1,000 ML IV SCH (01:13)
[2018-06-07] MEDS: HEPARIN SOD (PORCINE) 5000 UNITS/ML VIAL SC SCH ×3 (05:53→21:19)
[2018-06-07 05:57] LABS: BASO % 0.2 % (0.0-1.0); EOS % 0.1 % (0.0-3.0); HEMATOCRIT 27.8 % (36.0-47.0); HEMOGLOBIN 8.6 g/dl (12.0-15.5); LYMPH # 2.1 10^3/uL (1.5-4.5); LYMPH % 11.5 % (24.0-44.0); MEAN CORPUSCULAR HEMOGLOBIN 30.9 pg (27.0-33.0); MEAN CORPUSCULAR HGB CONC 30.9 g/dl (32.0-36.5); MONO # 0.7 10^3/uL (0.0-0.8); MONO % 3.9 % (0.0-5.0); NEUTROPHILS # 15.4 10^3/uL (1.8-7.7); NEUTROPHILS % 82.9 % (36.0-66.0); PLATELET COUNT, AUTOMATED 224 10^3/uL (150-450); RED BLOOD COUNT 2.78 10^6/uL (4.00-5.40); WHITE BLOOD COUNT 18.6 10^3/uL (4.0-10.0)
[2018-06-07 06:00] VITALS: BP 128/71
[2018-06-07 06:18] LABS: BLOOD UREA NITROGEN 3 MG/DL (7-18); CALCIUM LEVEL 8.3 MG/DL (8.5-10.1); CARBON DIOXIDE LEVEL 23 MEQ/L (21-32); CHLORIDE LEVEL 115 MEQ/L (98-107); GLOMERULAR FILTRATION RATE > 60.0 (>51); GLUCOSE, FASTING 88 MG/DL (70-100); SODIUM LEVEL 145 MEQ/L (136-145)
[2018-06-07 06:19] LABS: C REACTIVE PROTEIN QUANTITATIV 1.12 MG/DL (0.00-0.30); MAGNESIUM LEVEL 1.8 MG/DL (1.8-2.4)
[2018-06-07] MEDS: POTASSIUM CHLORIDE 10 MEQ SR TABLET PO SCH (09:26)
[2018-06-07] MEDS: LACTOBACILLUS ACIDOPHILUS CAP (BACID) PO SCH ×3 (09:26→21:18)
[2018-06-07] MEDS: MAGNESIUM OXIDE 400 MG TAB (MAG-OX) PO SCH ×2 (09:26→21:18)
[2018-06-07] MEDS: MULTIVITAMINS/MINERALS THERAP 1 TAB PO SCH (09:26)
[2018-06-07] MEDS: ASPIRIN 81 MG ENTERIC TAB PO SCH (09:26)
[2018-06-07] MEDS ORDERED: SODIUM CHLORIDE 0.9% INJ 10 ML SYR IV PRN (10:45)
[2018-06-07 14:00] VITALS: BP 119/65
--- NOTE | 2018-06-07 15:53 | IPNPDOC ---
Text Note Date of Service The patient was seen on 06/07/18. NOTE The patient was seen and examined. Reported diarrhea resolving, stools more formed. Denies any chest pain, pressure or discomfort. Denies any fevers or chills. Tolerating oral. PHYSICAL EXAMINATION: GENERAL: The patient is alert, comfortable and in no acute distress. HEENT: Normocephalic, atraumatic. Pupils are equal, round and reactive. CARDIAC: Regular. S1, S2. RESPIRATORY: Bilaterally clear. ABDOMEN: Soft, nontender. Positive bowel sounds. EXTREMITIES: No edema in bilateral lower extremities. NEUROLOGIC: No focal deficits. ASSESSMENT AND PLAN: This is a 52-year-old female patient with a history of left sided breast cancer, currently receiving chemotherapy. Last session was 05/25/2018. Also with chemo induced diarrhea, fibromyalgia, arthritis. Presented to the emergency department with diarrhea, weakness and found to be in severe hypokalemia on basic metabolic panel (BMP), recurrent due to chemotherapy, usually resolved with Imodium, but the patient wants to see if her diarrhea will stop on its own. Denies any dizziness, loss of consciousness. Denies any fevers, chills, shortness of breath, or cough. 1. Hypokalemia, improved. Supplementation, off IVF. Likely secondary to gastrointestinal loss with diarrhea. We will monitor clinically. 2. Chemotherapy induced diarrhea and dehydration. Imodium as needed. Off IV fluids. Monitor electrolytes. 3. Hypomagnesemia. Supplementation ordered. 4. Breast cancer, locally advanced breast cancer, invasive ductal carcinoma grade II with ER positive and ME positive and HER2 positive with right breast MRI 01/2018 showing a 4.7 x 3.2 x 3.6 tumor and left breast upper outer quadrant mass with left axilla lymphadenopathy, cT2N1 invasive ductal carcinoma. Currently on neoadjuvant docetaxel, carboplatin, pertuzumab, trastuzumab chemotherapy. Last dose was on 05/25/2018 and next one due on 06/15/2018. 5. Diarrhea. GI panel has been negative. 6. Leukocytosis, likely reactive to chemotherapy versus steroid induced. Followup cultures. The patient is afebrile with normal GI panel. We will send blood cultures. Monitor complete blood count (CBC). 7. Deep vein thrombosis (DVT) prophylaxis. Heparin subcutaneously. DISPOSITION: The patient is much improved. Likely discharge once electrolytes are normalized. VS,Fishbone, I+O VS, Fishbone, I+O Laboratory Tests 06/07/18 05:36 Red Blood Count 2.78 L, Mean Corpuscular Volume 100.0 H, Mean Corpuscular Hemoglobin 30.9, Mean Corpuscular Hemoglobin Concent 30.9 L, Red Cell Distribution Width 17.6 H, Neutrophils (%) (Auto) 82.9 H, Lymphocytes (%) (Auto) 11.5 L, Monocytes (%) (Auto) 3.9, Eosinophils (%) (Auto) 0.1, Basophils (%) (Auto) 0.2, Neutrophils # (Auto) 15.4 H, Lymphocytes # (Auto) 2.1, Monocytes # (Auto) 0.7, Eosinophils # (Auto) 0.0, Basophils # (Auto) 0.0, Calcium Level 8.3 L Vital Signs Date Time Temp Pulse Resp B/P (MAP) Pulse Ox O2 Delivery O2 Flow Rate FiO2 06/07/18 14:00 97.3 102 18 119/65 (83) 100 06/04/18 22:45 Room Air I&O- Last 24 Hours up to 6 AM 06/07/18 05:59 Intake Total 3880 ml Output Total 3050 ml Balance 830 ml ANDREY HIGGINS MD Jun 07, 2018 15:52
[2018-06-07 22:00] VITALS: BP 115/62
[2018-06-08] MEDS: HEPARIN SOD (PORCINE) 5000 UNITS/ML VIAL SC SCH (05:25)
[2018-06-08 05:54] LABS: BASO % 0.3 % (0.0-1.0); EOS % 0.1 % (0.0-3.0); HEMATOCRIT 29.7 % (36.0-47.0); LYMPH # 1.5 10^3/uL (1.5-4.5); LYMPH % 13.9 % (24.0-44.0); MEAN CORPUSCULAR HEMOGLOBIN 30.8 pg (27.0-33.0); MEAN CORPUSCULAR HGB CONC 30.3 g/dl (32.0-36.5); MEAN CORPUSCULAR VOLUME 101.7 fl (80.0-96.0); MONO # 0.5 10^3/uL (0.0-0.8); MONO % 4.7 % (0.0-5.0); NEUTROPHILS # 8.3 10^3/uL (1.8-7.7); PLATELET COUNT, AUTOMATED 225 10^3/uL (150-450); RED BLOOD COUNT 2.92 10^6/uL (4.00-5.40); WHITE BLOOD COUNT 10.4 10^3/uL (4.0-10.0)
[2018-06-08 06:00] VITALS: BP 107/65
[2018-06-08 06:14] LABS: BLOOD UREA NITROGEN 5 MG/DL (7-18); CALCIUM LEVEL 8.1 MG/DL (8.5-10.1); CARBON DIOXIDE LEVEL 20 MEQ/L (21-32); CHLORIDE LEVEL 114 MEQ/L (98-107); CREATININE FOR GFR 0.44 MG/DL (0.55-1.30); GLOMERULAR FILTRATION RATE > 60.0 (>51); GLUCOSE, FASTING 86 MG/DL (70-100); MAGNESIUM LEVEL 1.7 MG/DL (1.8-2.4); POTASSIUM SERUM 3.6 MEQ/L (3.5-5.1); SODIUM LEVEL 145 MEQ/L (136-145)
[2018-06-08] MEDS ORDERED: MAG SULF 1GM/100ML (MAG RUN) 1 GM in APPROPRIATE DILUENT 1 EA IV ONE (08:00)
[2018-06-08] MEDS ORDERED: POTASSIUM CHLORIDE 10 MEQ SR TABLET PO ONE (08:00)
[2018-06-08] MEDS ORDERED: MAGNESIUM OXIDE 400 MG TAB (MAG-OX) PO SCH (09:00)
[2018-06-08] MEDS: POTASSIUM CHLORIDE 10 MEQ SR TABLET PO SCH (09:00)
[2018-06-08] MEDS ORDERED: SODIUM CHLORIDE 0.9% INJ 10 ML SYR IV SCH (09:00)
[2018-06-08] MEDS: MULTIVITAMINS/MINERALS THERAP 1 TAB PO SCH (10:28)
[2018-06-08] MEDS: LACTOBACILLUS ACIDOPHILUS CAP (BACID) PO SCH (10:28)
[2018-06-08] MEDS: ASPIRIN 81 MG ENTERIC TAB PO SCH (10:29)
[2018-06-08] MEDS ORDERED: MAGN400T2 PO (11:40)
[2018-06-08] MEDS ORDERED: KLOR10TA76 PO (11:40)
--- NOTE | 2018-06-08 18:04 | DSES ---
DATE OF ADMISSION: 06/04/2018 DATE OF DISCHARGE: 06/08/2018 PRIMARY CARE PROVIDER: Charla Cameron ONCOLOGIST; Dr. Rahman FINAL DIAGNOSES: Hypokalemia secondary to diarrhea. Hypomagnesemia secondary to diarrhea. Dehydration. Chemotherapy-induced diarrhea. History of breast cancer, advanced breast cancer, invasive ductal carcinoma grade 2 with ER positive, OR positive HER2 positive. Right breast MRI shows a 4.7 x 3.2 x 3.6 tumor in the left breast, upper outer quadrant mass with left axilla lymphadenopathy. Stage cT2N2 invasive ductal carcinoma. Invasive ductal carcinoma. Diarrhea. Leukocytosis. HISTORY OF PRESENT ILLNESS: This is a 52-year-old female patient with underlying medical history of left-sided breast cancer, currently receiving chemo, last session was 05/25/2018, presented to the emergency department (ED) with diarrhea, weakness. The patient has been found to be hypokalemic and usually happens after chemo, has weekly labs ordered by patient's oncologist. Usually diarrhea resolves with Imodium, but patient wanted to see if diarrhea could stop on its own because Imodium tends to make the patient really constipated. Last bowel movement was the morning of admission. Patient denies any dizziness, lightheadedness, loss of consciousness, fevers or chills. Denies any palpitations, chest pain, shortness of breath, cough, or any sick contact. HOSPITAL COURSE: Patient admitted to the hospital. Gastrointestinal (GI) panel has been done and was negative. Blood culture was sent for leukocytosis. IV fluids and electrolyte supplementation was done. Potassium, magnesium supplemented. Patient's diarrhea was monitored. Imodium was provided. Physical therapy was ordered. Patient's condition gradually improved. Currently is tolerating oral, off of IV fluids with oral supplementation with appropriate electrolytes, hence the patient is ready to be discharged for further care and followup as an outpatient. VITAL SIGNS: Temperature 97.2, pulse 83, respirations 18, blood pressure 107/65, pulse oximetry 99% on room air. LABORATORY: WBC 10.4, hemoglobin and hematocrit 9 over 29.7, platelets 225. Chemistry: Sodium 145, potassium 3.6, chloride 114, bicarbonate 20, BUN 5, creatinine 0.44, magnesium 1.7. GENERAL: Patient frail, in no acute distress. HEENT: Normocephalic, atraumatic. PULMONARY: Bilaterally clear. CARDIAC: Regular, S1, S2. ABDOMEN: Soft, nontender. Positive bowel sounds. EXTREMITIES: No edema of bilateral lower extremities. DISCHARGE MEDICATIONS: - magnesium oxide 400 mg by mouth twice a day - potassium chloride 40 mEq by mouth daily - acetaminophen 500 mg by mouth every 6 hours as needed - aspirin 81 mg by mouth daily - dexamethasone 8 mg by mouth as directed - Colace 100 mg by mouth daily as needed - Flonase nasal spray twice a day as needed - Bacid one tablet by mouth daily - flaxseed oil 3000 mg by mouth daily - Imodium 2 mg by mouth as directed, maximum daily dose 16 mg - multivitamin by mouth daily - Zofran 8 mg by mouth every 12 hours as needed - Percocet 5/325 mg by mouth three times a day as needed - prochlorperazine 10 mg by mouth every 6 hours as needed DISCHARGE INSTRUCTIONS: Please see primary care provider in 7 days. Please see oncologist in 7 days. Check basic metabolic panel and magnesium with oncologist in 7 days. Oral hydration, encourage by mouth. Return to the hospital if symptoms worsen.
== END 2018-06-08 14:05 | disposition home or self-care (01) | DRG 641 ==
LOC: M ED 14:28 → M ED INP 20:29 → OBSVTOIN 20:29 → M MSPAV 23:05
PROVIDERS: ADMIT Internal Medicine; ATTEND Hospitalist
DX: E87.6 Hypokalemia (principal); E83.42 Hypomagnesemia; E86.0 Dehydration; D72.829 Elevated white blood cell count, unspecified; R19.7 Diarrhea, unspecified; Z79.82 Long term (current) use of aspirin; Z79.899 Other long term (current) drug therapy; Z88.5 Allergy status to narcotic agent; Z91.040 Latex allergy status; Z91.013 Allergy to seafood; C50.412 Malignant neoplasm of upper-outer quadrant of left female breast

== ENCOUNTER → 2018-06-11 | Outpatient (CLI) | payer OTHER ==
[~2018-06-11] MED LIST changes: +ASPI81TAEC PO; +BACITAB PO; +DOCU100C16 PO; +IMOD2TAB16 PO; +KLOR10TA76 PO; +MAGN400T2 PO; +PERC5TAB12 PO; +VITMTA PO
[2018-06-14 00:08] LABS: CYTOMEGALOVIRUS IgM ANTIBODY 31.7 AU/mL (0.0-29.9); HSV IgM TYPES 1&2 <0.91 Ratio (0.00-0.90)
== END ==
LOC: M LAB 15:07
PROVIDERS: ATTEND Internal Medicine Gastroenterology
DX: R19.7 Diarrhea, unspecified (principal)

== ENCOUNTER → 2018-06-12 | Outpatient (CLI) | payer OTHER ==
--- NOTE | 2018-06-12 14:30 | REP ---
WHOLE BODY BONE SCAN: HISTORY: Pain in the left ribs. History breast carcinoma. The patient reports sternum and left rib pain and bilateral hip pain. Comparison study is from January 23, 2018 done at [facility]. TECHNIQUE: 21.9 mCi technetium 99m MDP is injected and whole body bone scan imaging was acquired. SCINTIGRAPHIC FINDINGS: There is normal distribution of skeletal tracer with uptake in bilateral kidneys and in the urinary bladder. There is no abnormal uptake in the sternum, ribs, hips or elsewhere in the skeleton. There is no evidence to suggest skeletal metastatic disease. IMPRESSION: Findings unchanged. No evidence to suggest skeletal metastatic disease. Electronically Signed by Elgin Noyola MD 06/12/2018 02:41 P
== END ==
LOC: M RAD 09:51
PROVIDERS: ATTEND Internal Medicine Hematology & Oncology
DX: R07.81 Pleurodynia (principal); Z85.3 Personal history of malignant neoplasm of breast; R06.02 Shortness of breath
CPT/HCPCS: 78306; A9503

== ENCOUNTER → 2018-06-18 | Outpatient (CLI) | payer OTHER ==
[~2018-06-18] MED LIST changes: +BACT800T5 PO; +CLAR10CA3 PO; +ISOVUE-370 76% 125ML VIAL (Q9967 PER ML) As Ordered ONE; +NEUL0.6I SC
--- NOTE | 2018-06-18 14:11 | REP ---
Unilateral left ribs PA chest five views History: Left rib pain Comparison: 03/19/1989 The lungs are clear. The heart is normal in size. The pulmonary vasculature is normal in appearance. The bony structure is intact. An Lkkmwg-L-Enfs catheter s present. Impression: No acute disease. Electronically Signed by Thierno Erickson MD 06/18/2018 02:03 P
--- NOTE | 2018-06-18 15:03 | REP ---
CT pulmonary angiogram: With IV contrast. History: Shortness of breath. History of breast carcinoma. Comparison studies: Comparison CT study March 04, 2018. Contrast dose: 75 ML of Isovue [address] technique: Helical scanning is acquired and overlapping 1.5 mm and contiguous 3 mm axial images are reformatted. In addition, maximum intensity projection and multiplanar re-formation images are generated in sagittal and coronal imaging projections. CT pulmonary angiographic findings: There is good opacification of the pulmonary arterial tree. There is no CT evidence of pulmonary embolism. No vessel cutoff or filling defect is seen. The thoracic aorta enhances homogeneously as well and is normal in course and caliber. Great vessels are unremarkable. The lung bunn are clear. No evidence of infiltrate, mass, or atelectasis. There is a right-sided Wpxavi-U-Hoza catheter noted in place. No pleural or pericardial effusion is seen. No hilar or mediastinal mass or adenopathy is observed. There is significant improvement noted in the previously observed large left superior breast mass and in the attendant left axillary lymphadenopathy. Both of these findings are substantially improved. A somewhat spiculated left breast mass persists 1.9 cm in greatest diameter. No blastic or lytic bony lesion is seen. Multiple liver cysts are again noted unchanged. Impression: No CT evidence of pulmonary embolus. No active cardiopulmonary disease. Interval improvement in the left breast mass and left axillary adenopathy. Electronically Signed by Elgin Noyola MD 06/18/2018 03:20 P
== END ==
LOC: M RAD 13:34
PROVIDERS: ATTEND Internal Medicine Hematology & Oncology
DX: C50.919 Malignant neoplasm of unspecified site of unspecified female breast (principal); R06.02 Shortness of breath; R07.81 Pleurodynia
CPT/HCPCS: 71101; 71275; Q9967

== ENCOUNTER → 2018-07-09 | Outpatient (CLI) | payer OTHER ==
[~2018-07-09] MED LIST changes: -ISOVUE-370 76% 125ML VIAL (Q9967 PER ML) As Ordered ONE; +PROHANCE 279.3MG/ML 15ML VIAL (A9576) As Ordered ONE
--- NOTE | 2018-07-09 16:54 | REP ---
MRI BILATERAL BREASTS WITH AND WITHOUT CONTRAST: HISTORY: Invasive ductal carcinoma left breast. COMPARISON MRI: 02/02/2018. TECHNIQUE: Multiple sequences were obtained in the axial, coronal, and sagittal planes prior to and following the intravenous administration of 13 mL ProHance. Dynamic T1 fat sat post-Gadolinium images are obtained The images are interrogated in the [employer] software including CAD images, color overlay images and subtraction images. The large irregular mass in the superior aspect of the left breast has significantly decreased in size. Current exam shows 4-5 small subcentimeter nodular areas of suspicious enhancement at the site of the tumor. These are located in the upper outer left breast in an area approximately 2 cm in diameter. There is artifact from a biopsy clip at that location. No other mass is seen in either breast and there is no other morphologic abnormality. The previously noted enlarged left axillary lymph nodes have decreased in size. The largest lymph node now measures 1.2 x 0.7 cm and demonstrates a fatty hilum. Another lymph node more superiorly and medially located measures 7 x 6 mm and has a spherical shape. No right axillary adenopathy is seen. Incidental note is made of multiple cysts in the liver. A large amount of dense fibroglandular tissue is seen symmetrically in both breasts. There is mild scattered background parenchymal enhancement. No significant cystic changes are seen. A subcutaneous medication port is seen superiorly in the right chest wall in a subcutaneous location. IMPRESSION: ACR 6- Known left breast cancer. Comparing to the prior MRI performed 02/02/2018, previously noted large irregular mass in the upper left breast has significantly decreased in size, now at that location there are 4-5 subcentimeter nodules within an area of approximately 2 cm in diameter, representing foci of residual tumor status-post neoadjuvant chemotherapy. No other breast mass is seen bilaterally. Previously noted enlarged left axillary lymph nodes have decreased in size as discussed in detail above. Electronically Signed by Bernardino Christiansen MD 07/10/2018 12:37 P
== END ==
LOC: M RAD 12:05
PROVIDERS: ATTEND Surgery
DX: C50.912 Malignant neoplasm of unspecified site of left female breast (principal)
CPT/HCPCS: A9576; C8908

== ENCOUNTER → 2018-08-06 | Outpatient (REF) | payer OTHER ==
[~2018-08-06] MED LIST changes: -PROHANCE 279.3MG/ML 15ML VIAL (A9576) As Ordered ONE
== END ==
LOC: M LAB REF 13:02
PROVIDERS: ATTEND Internal Medicine Nephrology
DX: E87.6 Hypokalemia (principal); N18.2 Chronic kidney disease, stage 2 (mild)

== ENCOUNTER → 2018-08-13 | Outpatient (REF) | payer OTHER | LOC: M LAB REF 17:15 | PROVIDERS: ATTEND Internal Medicine Nephrology | DX: E87.6 Hypokalemia (principal); N18.2 Chronic kidney disease, stage 2 (mild) ==

== ENCOUNTER → 2018-09-01 | Outpatient (CLI) | payer OTHER ==
[~2018-09-01] MED LIST changes: +POTA10CA32 PO; +SPIR-10 PO
--- NOTE | 2018-09-02 08:00 | ECHO ---
DATE OF PROCEDURE: 09/01/2018 REFERRING PHYSICIAN: Dr. Rich Suarez INDICATION: Chemotherapy. HEIGHT: 167 cm. WEIGHT: 64 kg. DIMENSIONS: IVS: 0.8 LV: 4.7 LVPW: 1.2 LA: 3.2 Aorta: 3.2 IVC: 1.6 Mitral E wave velocity: 52 A wave: 71 FINDINGS: The study is of good technical quality. The patient is in sinus rhythm. Left ventricle is of normal size. There appears to be mild hypokinesis of apical segments. Overall left ventricle ejection fracture (LVEF) is estimated at around 50-55%. Computer calculated ejection fraction (EF) was 55%. Right ventricle appears normal. Both atria appear normal. Aortic, mitral and tricuspid valves appear normal. Pulmonic valve was not well seen. No pericardial effusion is noted. Inferior vena cava is normal size. Aortic root appears normal. Aortic arch and abdominal aorta also appear normal. Doppler interrogation reveals no aortic stenosis or insufficiency. There is trace mitral insufficiency and trace tricuspid insufficiency. Calculated pulmonary artery pressure is within normal limits. Evaluation of diastolic function reveals grade 1 diastolic dysfunction. CONCLUSIONS: 1. Study is of good technical quality. 2. Normal LV size with possibly mild apical hypokinesis and overall estimated LVEF around 50-55%. Grade 1 diastolic dysfunction. 3. No significant valvular disease. 4. Likely normal central venous pressure and normal pulmonary artery pressure. COMMENT: Subacute bacterial endocarditis (SBE) prophylaxis is not recommended.
== END ==
LOC: M CARPUL 08:57
PROVIDERS: ATTEND Internal Medicine Hematology & Oncology
DX: C50.412 Malignant neoplasm of upper-outer quadrant of left female breast (principal)

== ENCOUNTER → 2018-09-03 | Outpatient (CLI) | payer OTHER ==
--- NOTE | 2018-09-06 13:25 | RADONC ---
RADIATION ONCOLOGY CONSULTATION NOTE DATE: 09/03/2018 CHART NUMBER: [id number] DIAGNOSIS: Left breast cancer. STAGE: ypT1c, pN1mi, M0, grade 1, ER positive, OR positive, HER2 positive. ECOG PERFORMANCE STATUS: 0 CONSULTATION NOTE: Ms. Whitaker is a very pleasant 52-year-old white female, with the diagnosis, at this time, appears to be a stage ypT1c, pN1mi, M0, grade 1, ER positive, OR positive, HER2 positive, infiltrating ductal carcinoma of the left breast, who is presenting to us today status post neoadjuvant chemotherapy followed by lumpectomy and sentinel lymph node biopsy for consideration of postoperative radiation therapy for conservative breast management. HISTORY OF PRESENT ILLNESS: The patient was in her usual state of health, but reports having felt a lump in the upper outer quadrant of her left breast approximately 1 year or more ago. It was causing her no pain. A mammogram was done on 01/01/2018, which showed a left-sided breast mass measuring 4.1 cm. There were pleomorphic microcalcifications seen in the upper outer quadrant of the left breast. A needle-guided biopsy was done on 01/23/2018, which revealed an invasive ductal carcinoma, moderately differentiated. The tumor was estrogen receptor positive, progesterone receptor positive, and HER2 positive as well. In light of the fact that she had bulky disease, an upper outer quadrant mass measuring 4 cm, as well as clearly palpable lymphadenopathy, she was offered neoadjuvant chemotherapy. She started neoadjuvant chemotherapy with docetaxel/carboplatin/pertuzumab/trastuzumab in February 2018. She was under the care of medical oncology and has been undergoing systemic therapy. She did achieve a nice response, and on 08/14/2018, was seen by Dr. James and underwent a lumpectomy and sentinel lymph node sampling. Pathology revealed invasive ductal carcinoma measuring 1.7 cm. The tumor was well-differentiated. The margins of resection were positive for invasive carcinoma. A total of five lymph nodes were sampled, of which two had metastatic disease. The metastatic disease in the lymph nodes were micrometastasis between 0.2 mm to 2 mm and/or greater than 200 cells. The largest metastatic deposit was 1.1 mm. There was no extracapsular extension noted in the axilla. The tumor was estrogen receptor positive, progesterone receptor positive, and HER2 positive as well. The patient is scheduled for re-excision surgery on 09/07/2018, and is now presenting to me for discussion of postoperative radiation therapy for conservative breast management. PAST MEDICAL HISTORY: The patient's past medical history is positive for fibromyalgia, urinary tract infections, arthritis, a pilonidal cyst, left knee surgery, a hysterectomy in 1994, cholecystectomy in 2010, and TMJ syndrome. ALLERGIES: The patient is ALLERGIC to CONTRAST DYE, CODEINE, SEAFOOD, LATEX, and ADHESIVE TAPE. SOCIAL HISTORY: The patient does not smoke cigarettes nor abuse alcohol. FAMILY HISTORY: The patient's family history is positive for mother with colon cancer and a father with skin cancer and liver cancer. REVIEW OF SYSTEMS: The patient's review of systems is positive for some nocturia but is otherwise noncontributory. She denies nausea, vomiting, fevers, chills, night sweats, diplopia, headaches, anxiety or depression, anorexia, weight loss, visual disturbances, chest pain, urinary or bowel difficulties, bone pain, or neurological problems. PHYSICAL EXAMINATION: The patient is a well-developed, well-nourished female in no acute distress. HEENT exam is normocephalic, atraumatic. Extraocular movements are intact. There is no palpable cervical, supraclavicular, infraclavicular, axillary, or inguinal lymphadenopathy present. Lungs are clear to auscultation and percussion. Heart has a regular rate and rhythm. Abdomen is benign with no hepatosplenomegaly, masses, or tenderness. Breast examination reveals no masses or discharge bilaterally. Skeletal examination reveals no tenderness to pressure or percussion of the bony skeleton. Extremities reveal no clubbing, cyanosis, or edema. Neurologic exam is grossly intact, as is the remainder of the physical examination. Standard breast physical exam and ASSESSMENT: Clearly, the patient is a candidate for external beam radiation therapy, and I have so informed her. I have discussed with the patient in detail the potential benefits as well as possible acute and chronic sequelae of external beam radiation therapy. We have discussed the logistics of treatment planning, simulation, and subsequent fractionated daily radiation treatments. I have scheduled the patient for simulation in mid September so that radiation can begin approximately 3-4 weeks post surgery. Thank you for allowing us to participate in the care of this very pleasant woman. If I could be of any further assistance or provide you with any information, please feel free to contact me at anytime. cc: DO Sari Simon MD Kristine Keeney, MD Dawn L. Scott, ANP-BC
--- NOTE | 2018-09-07 07:40 | MEDONC ---
FOLLOWUP VISIT DATE OF SERVICE: 09/03/2018 IDENTIFICATION: The patient is a 52-year-old woman who is here for followup after surgery for locally advanced breast cancer. PREVIOUS TREATMENT: 1. Status post neoadjuvant TCH-P chemotherapy from March 02, 2018 and completed July 06, 2018. 2. Axillary lymph node sampling and wide excision of left breast cancer with preoperative wire localization performed on 08/14/2018 at [facility] by Dr. James on 08/14/2018. INTERVAL HISTORY: The patient reports that she has been feeling well since her last visit. She saw her surgeon and is scheduled to have a re-excision of the positive margin performed on 09/07/2018. She has an appointment to see radiation therapy tomorrow. She returns today to review her echocardiogram and resume Herceptin treatment. She has no new complaints to offer and is feeling generally well. PHYSICAL EXAMINATION: General: The patient appears well-developed, well-nourished and in no distress. Vital signs: Temperature 96.7, pulse 82, respiration 16, blood pressure 113/79, pulse ox 100% on room air. The patient is not examined otherwise on today's visit. Echocardiogram performed on 09/01/2018, findings: Left ventricle is of normal size. There appears to be mild hypokinesis of apical segments. Overall left ventricular ejection fraction is estimated at around 50-55%. Computer calculated ejection fraction was 55%. ASSESSMENT: Stable cardiac function on echocardiogram compared with the last echocardiogram 3 months ago. PLAN: 1. Proceed with Herceptin today. 2. Re-excision surgery and radiation therapy consult as scheduled. 3. Return visit in 3 weeks when she will be due for her next Herceptin dose. Electronically Signed by Rich Suarez MD 09/09/2018 05:25 P DD: Rich Suarez MD 09/03/2018 09:11 P DT: [email or web address] 09/07/2018 07:36 A CC:
== END ==
LOC: M ONCR 12:56
PROVIDERS: ATTEND Radiology Radiation Oncology
DX: Z85.3 Personal history of malignant neoplasm of breast (principal); Z92.21 Personal history of antineoplastic chemotherapy

== ENCOUNTER → 2018-09-10 | Outpatient (CLI) | payer OTHER ==
--- NOTE | 2018-09-10 09:41 | REP ---
Clinical: Cystic liver disease. Technique: Real time cordero scale ultrasound examination using curved array transducer. Comparison: Ultrasound dated 03/27/2011 of the Findings: Liver parenchyma and contour are essentially normal. Multiple hepatic cysts are appreciated. The largest cyst appears septated within the right lobe and measures 3.2 x 3.1 x 4.4 cm. The cysts appear relatively benign and similar to prior examination although slightly increased. Pancreas is normal in appearance and echotexture. Evidence of prior cholecystectomy. No biliary ductal dilatation is appreciated and the common bile duct measures 4.7 mm diameter. Right kidney is normal in reniform shape and echogenicity without hydronephrosis measuring 10.6 x 5.4 x 5.2 cm. No ascites. Impression: Few scattered hepatic cysts measuring up to 4.4 cm maximal diameter. Although a few cysts demonstrate thin nonspecific septations, the cysts are essentially benign appearing by ultrasound. Electronically Signed by Arnoldo Gonsalves MD 09/10/2018 09:31 A
== END ==
LOC: M RAD 08:33
PROVIDERS: ATTEND Internal Medicine Gastroenterology
DX: Q44.6 Cystic disease of liver (principal)

== ENCOUNTER → 2018-09-15 | Outpatient (CLI) | payer OTHER ==
[~2018-09-15] MED LIST changes: -MELA5TAB17 PO; +MELA5TAB31 PO
== END ==
LOC: M LAB 11:16
PROVIDERS: ATTEND Internal Medicine Nephrology
DX: C50.912 Malignant neoplasm of unspecified site of left female breast (principal); N18.2 Chronic kidney disease, stage 2 (mild); E87.6 Hypokalemia

== ENCOUNTER → 2018-10-14 | Outpatient (REF) | payer OTHER | LOC: M LAB REF 17:15 | PROVIDERS: ATTEND Internal Medicine Nephrology | DX: E26.1 Secondary hyperaldosteronism (principal) ==

== ENCOUNTER → 2018-10-14 | Outpatient (RCR) | payer OTHER ==
--- NOTE | 2018-09-30 07:54 | RADONC ---
RADIATION ONCOLOGY SIMULATION NOTE: DATE: 09/29/2018 CHART NUMBER: [id number] Ms. Whitaker was taken to the CT scan for CT simulation of her left breast field. CT was accomplished without difficulty or discomfort. Radiation treatment planning is underway and radiation treatments will begin subsequently. An immobilization device was created without difficulty or discomfort. He will be used throughout the course of treatment. I was physically present throughout the course of CT simulation.
--- NOTE | 2018-10-13 11:20 | RADONC ---
RADIATION ONCOLOGY PROGRESS NOTE DATE: 10/12/2018 CHART NUMBER: [id number] PROGRESS NOTE: Ms. Whitaker is presently at a dose of 540 cGy to her left breast and is tolerating treatments quite well at this point with no complaints related to her radiation therapy. She is having no breast or bone pain. REVIEW OF SYSTEMS: The patient's review of systems is noncontributory. Denies nausea, vomiting, fevers, chills, night sweats, diplopia, headaches, anxiety or depression, anorexia, weight loss, visual disturbances, chest pain, urinary or bowel difficulties, bone pain, or neurological problems. PHYSICAL EXAMINATION: The patient's skin is in good condition with no evidence of radiation change present. There is no moist or dry desquamation. The remainder of her physical exam remains unchanged. Ms. Whitaker is tolerating treatments quite well and radiation will continue as scheduled.
[~2018-10-14] MED LIST changes: +AMOX875T2; +ANAS1TAB2 PO; +AZIT-12; +CYCL10TA PO; +LOPE-39 PO; +MECL1TAB31 PO; +MOBI4TAB PO; +ONDA8TAB10 PO; -ONDA8TAB7 PO; +POTA1TAB23 PO; +SILV40CR EXT; +VALI2TAB PO
== END ==
LOC: M ONCR 09-29 09:53
PROVIDERS: ATTEND Radiology Radiation Oncology
DX: C50.412 Malignant neoplasm of upper-outer quadrant of left female breast (principal)

== ENCOUNTER → 2018-10-23 | Outpatient (CLI) | payer OTHER ==
--- NOTE | 2018-10-23 10:39 | REP ---
MR THORACIC SPINE WITHOUT AND WITH CONTRAST: HISTORY: Mid back pain. CONTRAST: ProHance 13 mL. A small central disc protrusion is present at the T4-5 level. There is minimal effacement of the thecal sac without spinal cord compression. There is no other disc bulge or herniation. The remaining neural foramina are patent. The spinal cord is normal in signal. Small focal areas of decreased or isointense signal intensity on T1 and increased signal intensity on T2-weighted images are present in the T7, T9, and T10 vertebral bodies. There is mild homogenous enhancement with contrast. The vertebral bodies are normal in height. Normal signal intensity is present in the remaining thoracic vertebral bodies. IMPRESSION: 1. Small disc protrusion at the T4-5 leve without spinal cord compression. 2. There are small focal areas of enhancement in the T7, T9, and T10 vertebral bodies suspicious for metastatic lesions. Electronically Signed by Thierno Erickson MD 10/23/2018 10:45 A
--- NOTE | 2018-10-24 10:01 | REP ---
MR CERVICAL SPINE WITHOUT AND WITH CONTRAST: HISTORY: Neck pain. CONTRAST: ProHance 13 mL. A disc bulge is present at the C5-6 level. There is minimal effacement of the thecal sac without spinal cord compression. The C5 neural foramina are patent. A disc bulge is present at the C6-7 level. There is minimal effacement of the thecal sac without spinal cord compression. The C6 neural foramina are patent. There is no other disc bulge or herniation. The remaining neural foramina are patent. The spinal cord is normal in signal intensity. There is no abnormal enhancement. Normal signal intensity is present in the cervical vertebral bodies. IMPRESSION: There is cervical spondylosis at the C5-6 and C6-7 levels without spinal cord compression. Unreviewed
== END ==
LOC: M PLARAD 07:35
PROVIDERS: ATTEND Internal Medicine
DX: M47.892 Other spondylosis, cervical region (principal); M51.24 Other intervertebral disc displacement, thoracic region

== ENCOUNTER → 2018-11-04 | Outpatient (CLI) | payer OTHER ==
[~2018-11-04] MED LIST changes: -AMOX875T2; -ANAS1TAB2 PO; -AZIT-12; -CYCL10TA PO; -MECL1TAB31 PO; -MOBI4TAB PO; -ONDA8TAB10 PO; +ONDA8TAB7 PO; -POTA1TAB23 PO; -SILV40CR EXT; -VALI2TAB PO
--- NOTE | 2018-11-04 19:34 | REP ---
Whole body PET CT scan for restaging of breast carcinoma: Comparison is 80 spine MRI dated 10/23/2018 demonstrating focal areas of enhancement in the seven, T9 and T10 vertebral bodies compatible with metastases. In July 04, 2018 the patient underwent needle localization and left breast lumpectomy with axillary lymph node dissection. Whole-body scanning is performed from the skull base to the upper thighs. Neck and supraclavicular areas: There are no hypermetabolic foci. There is artifactual uptake in sublingual salivary glands. Chest: There is focal non hypermetabolic uptake in the left axilla with a standard uptake value of 2.16. This may be postsurgical / postradiation uptake. There is focal borderline hypermetabolic uptake in the left breast. The standard uptake value is 2.6. This could be postsurgical /postradiation uptake. There is mild skin thickening of the left breast. This could be postsurgical or postradiation. There are are no hypermetabolic foci in the mediastinum, right and left basia or right or left lung bunn. There are no skeletal hypermetabolic foci, particularly in the thoracic spine. Abdomen, pelvis and upper thighs: There are no hypermetabolic foci. Specifically there are no hepatic or adrenal foci. There is a 2.4 cm cyst in the dome of the hepatic right lobe, and 1.8 cm cyst anteriorly in the hepatic left lobe, and to cysts inferiorly in the hepatic right lobe measuring 2.9 cm and 2.2 cm, adjacent to one another. All of these cysts demonstrate photopenia. Impression: There are no hypermetabolic foci, particularly in the left breast, left axilla or thoracic spine. There is non hypermetabolic uptake in the left axilla. There is borderline hypermetabolic uptake in the left breast. There is mild skin thickening of the left breast. There are multiple hepatic cysts, all demonstrating photopenia. The study is performed with 8.65 mCi of F 18 FDG, Electronically Signed by Bernardino Rubio MD 11/04/2018 07:26 P
== END ==
LOC: M PLARAD 09:23
PROVIDERS: ATTEND Internal Medicine
DX: C50.412 Malignant neoplasm of upper-outer quadrant of left female breast (principal)
CPT/HCPCS: 78815; A9552

== ENCOUNTER 2018-11-13 13:45 | Outpatient (RCR) | payer OTHER ==
--- NOTE | 2018-10-20 08:08 | RADONC ---
RADIATION ONCOLOGY PROGRESS NOTE DATE: 10/19/2018 CHART NUMBER: [id number] Mrs. Whitaker with a diagnosis of left breast cancer is currently receiving adjuvant radiotherapy. She appears to be tolerating her radiotherapy reasonably well with no major issues related to her disease. REVIEW OF SYSTEMS: She denies any nausea, vomiting, coughing, sputum production or hemoptysis. Her energy level is diminished and she has aches and pains but she also has an ongoing diagnosis of fibromyalgia and arthritis. Generally she appears to be tolerating her radiotherapy reasonably well. EXAMINATION FINDINGS: Only a minimal erythematous blush without focal desquamation. Lymphatics: No palpable peripheral lymphadenopathy is appreciated. Lungs are clear. Heart: Regular without murmurs. Abdomen without evidence of hepatomegaly, masses, deep abdominal tenderness. The remainder of the physical examination is unchanged. IMPRESSION: Tolerating therapy well. PLAN: Treatments to continue.
--- NOTE | 2018-10-28 10:30 | RADONC ---
RADIATION ONCOLOGY PROGRESS NOTE DATE OF SERVICE: 10/26/2018 CHART #; [id number] Mrs. Whitaker with the diagnosis of left breast cancer is currently receiving adjuvant radiotherapy and appears to be tolerating her radiotherapy reasonably well at a dose of 2340 cGy of an anticipated 4500 cGy and reevaluate. REVIEW OF SYSTEMS: She denies any nausea, vomiting, coughing, sputum production or hemoptysis. Her energy level is diminished and she has aches and pains generalized as well as some neuropathic like pains emanating from the area of the cervical spine and radiating down into her arms. She also has some pains which radiate down into her lower extremities. Dr. Martinez has ordered an MRI scan of the thoracic spine and cervical spine. EXAMINATION FINDINGS: The skin within the irradiated volume shows no evidence of erythema and certainly no focal desquamation. Lymphatics: No palpable peripheral lymphadenopathy is appreciated. She has a moderate amount of percussive bony tenderness located in the mid thoracic spine. Lungs are clear. Heart regular without murmurs. The remainder of the physical examination is unchanged. IMPRESSION: Tolerating therapy well. PLAN: The patient will have an MRI scan of the thoracic spine and cervical spine and the results are pending. Treatments will continue.
--- NOTE | 2018-11-05 10:21 | RADONC ---
RADIATION ONCOLOGY PROGRESS NOTE DATE: 11/02/2018 CHART NUMBER: [id number] PROGRESS NOTE: Ms. Whitaker is thus far at a dose of 3060 cGy to her left breast. She was last treated on Friday last week. She had been tolerating her treatments quite well but cancelled treatment today for personal reasons. She is scheduled to resume tomorrow. As of Friday, the patient's review of systems was noncontributory. She had no problems. Her physical exam as of Friday was also unchanged. Her skin was in good condition with no evidence of moist or dry desquamation. Radiation is scheduled to resume tomorrow.
--- NOTE | 2018-11-11 08:58 | RADONC ---
RADIATION ONCOLOGY PROGRESS NOTE DATE: 11/09/2018 CHART NUMBER: [id number] Ms. Whitaker is presently at a dose of 3960 cGy to her left breast and is tolerating treatments quite well at this point with no significant difficulties related to her radiation therapy. She does have some breast discomfort. PHYSICAL EXAMINATION: The patient's left breast shows some erythema and tanning present but overall is in good condition with no evidence of moist or dry desquamation. The remainder of her physical exam remains unchanged. Ms. Whitaker is tolerating treatments quite well and radiation will continue as scheduled.
--- NOTE | 2018-11-12 09:14 | RADONC ---
RADIATION ONCOLOGY SIMULATION NOTE DATE: 11/10/2018 CHART NUMBER: [id number] Ms. Whitaker was taken to the linear accelerator today for clinical setup of her electron beam boost field. Setup was accomplished without difficulty or discomfort. Radiation treatment planning is underway and radiation treatments will begin subsequently. An immobilization device was created without difficulty or discomfort. It will be used throughout the course of treatment. I was physically present throughout the course of CT simulation. Ms. Whitaker was complaining at time of simulation of some skin tenderness. On physical examination, she has some brisk erythema but no evidence of moist or dry desquamation. Nonetheless, I have sent in a prescription for Silvadene cream to be applied topically to her treated chest. This should provide some relief.
[~2018-11-13 13:45] MED LIST changes: +SILV40CR EXT
[2018-12-16] MEDS ORDERED: POTA1TAB23 PO (08:15)
[2018-12-16] MEDS ORDERED: ANAS1TAB2 PO (08:57)
[2018-12-16] MEDS ORDERED: PERC5TAB12 PO (09:09)
== END 2018-11-14 ==
LOC: M ONCR 13:45
PROVIDERS: ATTEND Radiology Radiation Oncology
DX: C50.412 Malignant neoplasm of upper-outer quadrant of left female breast (principal)

== ENCOUNTER → 2018-11-18 | Outpatient (REF) | payer OTHER ==
[~2018-11-18] MED LIST changes: +AMOX875T2; +ANAS1TAB2 PO; +AZIT-12; +CYCL10TA PO; +MECL1TAB31 PO; +MOBI4TAB PO; +ONDA8TAB10 PO; -ONDA8TAB7 PO; +POTA1TAB23 PO; +VALI2TAB PO
== END ==
LOC: M LAB REF 17:01
PROVIDERS: ATTEND Internal Medicine Nephrology
DX: E26.1 Secondary hyperaldosteronism (principal)

== ENCOUNTER → 2018-11-18 | Outpatient (REF) | payer OTHER | LOC: M LAB REF 18:13 | PROVIDERS: ATTEND Internal Medicine Nephrology | DX: E26.1 Secondary hyperaldosteronism (principal) ==

== ENCOUNTER → 2018-11-23 | Outpatient (CLI) | payer OTHER ==
[~2018-11-23] MED LIST changes: -AMOX875T2; -ANAS1TAB2 PO; -AZIT-12; -CYCL10TA PO; -MECL1TAB31 PO; -MOBI4TAB PO; -ONDA8TAB10 PO; +ONDA8TAB7 PO; -POTA1TAB23 PO; -VALI2TAB PO
--- NOTE | 2018-11-24 07:14 | REP ---
WHOLE BODY BONE SCAN: Following the intravenous administration of 22 millicuries Technetium 99M MDP, Patient's whole body was imaged in the anterior and posterior projections with additional oblique and lateral views obtained. No significant abnormal uptake is seen in the axillary appendicular skeleton. There is no scintigraphic evidence of osseous metastases. Renal and bladder activity are seen. IMPRESSION: No compelling scintigraphic evidence of osseous metastases. Electronically Signed by Bernardino Christiansen MD 11/25/2018 10:00 A
== END ==
LOC: M RAD 09:19
PROVIDERS: ATTEND Internal Medicine Hematology & Oncology
DX: C50.912 Malignant neoplasm of unspecified site of left female breast (principal)
CPT/HCPCS: 78306; A9503

== ENCOUNTER 2018-11-24 13:50 | Outpatient (RCR) | payer OTHER ==
--- NOTE | 2018-11-18 09:55 | RADONC ---
RADIATION ONCOLOGY NEW PATIENT CONSULTATION DATE: 11/17/2018 CHART NUMBER: [id number] NEW PATIENT CONSULTATION: Laquita Whitaker with a diagnosis of left breast cancer is currently receiving local regional radiotherapy and is at a dose of 4860 cGy to the breast. She is being treated presently with a 16 MeV electron beam to her boost area of partial mastectomy site. She is tolerating her therapy reasonably well. She did complain of some issues with regard to skin irritation and Dr. Hines has given her some Silvadene cream. Otherwise, she denies any nausea, vomiting, coughing, sputum production or hemoptysis. Her energy level is excellent. She is able to maintain most of her day-to-day activities without any alteration of her lifestyle. She feels that the Silvadene cream is actually helping her a great deal. EXAMINATION FINDINGS: Skin within the irradiated volume shows a marked erythematous blush without focal desquamation. There is no palpable peripheral lymphadenopathy. Lungs are clear. Heart: Regular without murmurs. Abdomen: Without evidence of hepatomegaly, masses, deep abdominal tenderness. The remainder of the examination is unchanged. IMPRESSION: Tolerating therapy well. PLAN: Treatments to continue.
--- NOTE | 2018-11-24 09:38 | ONC.PHACK ---
CHEMO ADMIN CHECKLIST Order Contains Pt ID: Name, Order on Chemo Order Form?: Yes Order Form Includes ALL: Correct Tx Day, Correct Date, Correct Cycle Number Pt ID on Order form Matches: Pt ID on PHA Label Med on Chemo OrderForm Matches: PHA Label, Med Used for Preparation [facility] Nov 24, 2018 09:38
--- NOTE | 2018-11-24 09:49 | RADONC ---
RADIATION ONCOLOGY END OF TREATMENT SUMMARY DATE: 11/23/2018 CHART NUMBER: [id number] DIAGNOSIS: Left breast cancer. STAGE: YpT1c, pN1Mi, M0, grade 1, ER positive, MI positive, HER2/sakshi positive. ECOG PERFORMANCE STATUS: 0 PLAN OF RADIOTHERAPY: Adjuvant radiotherapy after having completed chemotherapy. DATE RADIOTHERAPY STARTED: October 08, 2018 RADIOTHERAPY COMPLETED: November 24, 2018 DOSE: The entire breast received a total of 4500 cGy administered in 25 fractions over 34 elapsed days. The peripheral lymphatics received a total of 4860 cGy administered in 27 fractions over 41 elapsed days. She was treated with a combination of a 10 MV photon beam as well as 6 MV photon beam via a 3D conformal technique to the left breast. She was treated to the supraclavicular area with a combination of a 15 MV photon beam and a 6 MV photon beam via 3D conformal radiotherapy. She was treated to the lumpectomy scar site with a 16 MeV electron beam with a solitary field for 1000 cGy administered in five fractions. Prior to treatment delivery, localization was accomplished upon our CT simulator and treatment portals were defined by the use of multi-leaf collimators. STATUS OF TUMOR: There was neither evidence of local regional recurrence, progression, or distant metastatic spread during her course of radiotherapy. In general, treatments were quite well tolerated as she denied major issues such as nausea, vomiting, coughing, sputum production, or hemoptysis. Her energy level remained relatively stable, and she was able to maintain most day-to-day activities without any alteration of her lifestyle. She did experience the anticipated skin irritation, which responded well to conservative treatments. Her last treatment is tomorrow on November 24, 2018, and she will be asked to return in 1 month for a postradiotherapy followup visit. She was advised to return to her referring physicians as per their directions and instructions. Thank you for allowing us the opportunity of participation in the management of this fine patient.
[2018-12-16] MEDS ORDERED: POTA1TAB23 PO (08:15)
[2018-12-16] MEDS ORDERED: ANAS1TAB2 PO (08:57)
[2018-12-16] MEDS ORDERED: PERC5TAB12 PO (09:09)
== END 2018-12-14 ==
LOC: M ONCR 13:50
PROVIDERS: ATTEND Radiology Radiation Oncology
DX: C50.412 Malignant neoplasm of upper-outer quadrant of left female breast (principal)

== ENCOUNTER → 2018-12-14 | Outpatient (CLI) | payer OTHER ==
[~2018-12-14] MED LIST changes: +ANAS1TAB2 PO; +POTA1TAB23 PO
--- NOTE | 2018-12-14 18:03 | ECHO ---
DATE OF PROCEDURE: 12/14/2018 REFERRING PROVIDER: Laisha Cedillo Nurse Practitioner INDICATION: Chemotherapy. Height 167 cm, weight 70 kg. DIMENSIONS: IVS: 0.8 LV: 5.4 LVPW: 1.0 LA: 3.0 Aorta: 3.2 IVC: 1.5 Mitral E wave velocity: 63 A wave: 76 Left atrial volume index: 26 FINDINGS: The study is of acceptable technical quality. The patient is in sinus rhythm. Left ventricle is normal size. There is a wall motion abnormality, apex and adjacent part of septum, anterior wall and lateral wall appear hypokinetic. Computer calculated left ventricle ejection fraction was 46% which seems conceivable based on subjective assessment. Right ventricle appears of normal size and systolic function. Both atria appear normal. Aortic, mitral, tricuspid and pulmonic valves were all reasonably well seen and appear normal. No pericardial effusion is noted. Inferior vena cava is normal size. Aortic root, aortic arch and visualized segment of abdominal aorta appear normal. Doppler interrogation reveals no aortic stenosis or insufficiency. There is trace mitral and trace tricuspid insufficiency. Quality of TR jet was not sufficient to adequately estimate pulmonary artery pressure. Pulmonic valve is functionally competent. Mitral inflow pattern indicates grade 1 diastolic dysfunction. Unfortunately, tissue Doppler imaging of mitral annulus was not performed. CONCLUSIONS: 1. Study is of acceptable technical quality. 2. Normal LV size with apical wall motion abnormality and overall mild to moderate left ventricular systolic dysfunction, computer calculated LVEF 46%. Grade 1 diastolic dysfunction. 3. No hemodynamically significant valvular disease. 4. Normal central venous pressure. 5. Unable to adequately estimate pulmonary artery pressure. COMMENT: Subacute bacterial endocarditis (SBE) prophylaxis is not recommended. MTDD
== END ==
LOC: M CARPUL 08:50
PROVIDERS: ATTEND Nurse Practitioner Family
DX: C50.412 Malignant neoplasm of upper-outer quadrant of left female breast (principal)

== ENCOUNTER → 2018-12-23 | Outpatient (CLI) | payer OTHER ==
--- NOTE | 2018-12-25 10:23 | RADONC ---
RADIATION ONCOLOGY FOLLOWUP NOTE DATE: 12/23/2018 CHART #: [id number] DIAGNOSIS: Left breast cancer. STAGE: YpT1c, pN1mi, M0, grade 1, ER positive, MI positive, HER2/sakshi positive. ECOG PERFORMANCE STATUS: 0. FOLLOWUP NOTE: Ms. Whitaker is a very pleasant 52-year-old white female with the diagnosis of a stage ypT1c, pN1mi, M0, grade 1, ER positive, MI positive, HER2/sakshi positive, infiltrating ductal carcinoma of the left breast who is presenting to us today for routine followup visit 1 month post completion of external beam radiation therapy. The patient presents today reporting that she is doing quite well with no complaints at this time related to her radiation therapy or disease. She has no breast or bone pain. REVIEW OF SYSTEMS: The patient's review of systems is noncontributory. Denies nausea, vomiting, fevers, chills, night sweats, diplopia, headaches, anxiety or depression, anorexia, weight loss, visual disturbances, chest pain, urinary or bowel difficulties, bone pain, or neurological problems. PHYSICAL EXAMINATION: The patient is a well-developed, well-nourished female in no acute distress. HEENT exam is normocephalic, atraumatic. Extraocular movements are intact. There is no palpable cervical, supraclavicular, infraclavicular, axillary, or inguinal lymphadenopathy present. Lungs are clear to auscultation and percussion. Heart has a regular rate and rhythm. Abdomen is benign with no hepatosplenomegaly, masses, or tenderness. Breast examination reveals no masses or discharge bilaterally. Skeletal examination reveals no tenderness to pressure or percussion of the bony skeleton. Extremities reveal no clubbing, cyanosis, or edema. Neurologic exam is grossly intact, as is the remainder of the physical examination. ASSESSMENT: The patient is clinically JAMESON at this time and is being in followed and managed closely by her medical oncologist and surgeon as well as her other physicians. In light of this and my impending jail, I am discharging her from my followup except on a as needed basis. The patient has my cell phone number and work number. We are available to her in the meantime should she have any questions or if we could be of any assistance whatsoever. cc: DO Sari Simon MD Christine A. Kennedy, MD Dawn L. Rakesh, ANP-BC
== END ==
LOC: M ONCR 13:52
PROVIDERS: ATTEND Radiology Radiation Oncology
DX: Z85.3 Personal history of malignant neoplasm of breast (principal); Z92.3 Personal history of irradiation

== ENCOUNTER 2019-01-25 09:13 | Emergency (ER) | payer OTHER ==
[~2019-01-25] VITALS: Ht 167.6 cm; Wt 71.3 kg
[~2019-01-25 09:13] MED LIST changes: +MOBI4TAB PO
[2019-01-25] MEDS ORDERED: NS 500 ML IV ONE (10:00)
[2019-01-25] MEDS ORDERED: KETOROLAC 30 MG/ML VIAL (J1885) IV ONE (10:00)
--- NOTE | 2019-01-25 10:14 | REP ---
CT brain: 01/25/2019. Indication: Headache. Comparison: 03/05/2018. Technique: Unenhanced axial CT images of the brain were obtained from skull base to vertex. Findings: There is no acute intracranial hemorrhage, acute cortical infarction, mass effect, hydrocephalus or significant fluid within the visualized paranasal sinuses/mastoid air cells. Impression: No acute intracranial process. Electronically Signed by Mack Duran DO 01/25/2019 10:04 A
[2019-01-25 10:50] LABS: BASO % 0.7 % (0.0-1.0); EOS # 0.1 10^3/uL (0.0-0.5); EOS % 1.2 % (0.0-3.0); HEMATOCRIT 35.8 % (36.0-47.0); HEMOGLOBIN 11.2 g/dl (12.0-15.5); LYMPH # 0.6 10^3/uL (1.5-5.0); LYMPH % 13.7 % (24.0-44.0); MEAN CORPUSCULAR HEMOGLOBIN 29.8 pg (27.0-33.0); MEAN CORPUSCULAR HGB CONC 31.3 g/dl (32.0-36.5); MEAN CORPUSCULAR VOLUME 95.2 fl (80.0-96.0); MONO # 0.3 10^3/uL (0.0-0.8); NEUTROPHILS % 75.9 % (36.0-66.0); PLATELET COUNT, AUTOMATED 275 10^3/uL (150-450); RED BLOOD COUNT 3.76 10^6/uL (4.00-5.40)
[2019-01-25 11:36] LABS: BLOOD UREA NITROGEN 17 MG/DL (7-18); CALCIUM LEVEL 8.8 MG/DL (8.5-10.1); CARBON DIOXIDE LEVEL 28 MEQ/L (21-32); CHLORIDE LEVEL 109 MEQ/L (98-107); CK-MB VALUE MASS < 1.0 NG/ML (<3.6); CPK CREATINE PHOSPHOKINASE 544 U/L (26-192); CREATININE FOR GFR 0.62 MG/DL (0.55-1.30); GLOMERULAR FILTRATION RATE > 60.0 (>51); GLUCOSE, FASTING 88 MG/DL (70-100); MB/CK RELATIVE INDEX 0.18 (< OR =4); POTASSIUM SERUM 4.1 MEQ/L (3.5-5.1); SODIUM LEVEL 144 MEQ/L (136-145); TROPONIN I 0.03 NG/ML (< 0.10)
[2019-01-25] MEDS ORDERED: ACETAMINOPHEN 500 MG TAB PO ONE (11:45)
[2019-01-25 15:10] LABS: CK-MB VALUE MASS < 1.0 NG/ML (<3.6); CPK CREATINE PHOSPHOKINASE 456 U/L (26-192); MB/CK RELATIVE INDEX 0.22 (< OR =4); TROPONIN I 0.04 NG/ML (< 0.10)
[2019-01-25] MEDS ORDERED: CYCLOBENZAPRINE 10 MG TAB PO ONE (15:45)
[2019-01-25] MEDS ORDERED: CYCL10TA PO (16:03)
[2019-01-25 16:06] VITALS: BP 123/68
--- NOTE | 2019-01-26 07:38 | ECGEPIP ---
[facility] - ED Test Date: 2019-01-25 Pat Name: JOSE STRINGER Department: Room: - Gender: Female Senior Instructional Designer: : 1965 Requested By: GIOVANNY Blackwell SCREW DOWN Order Number: [id number] Reading MD: Dionte Sim Measurements Intervals [facility] Rate: 86 P: 26 NM: 163 QRS: 0 QRSD: 94 T: 70 QT: 362 QTc: 434 Interpretive Statements SINUS RHYTHM Nonspecific T wave abnormality Similar to tracing done 06-04-18 Electronically Signed on 01-26-2019 7:38:08 EST by Dionte Sim
== END 2019-01-25 16:26 | disposition home or self-care (01) ==
LOC: M ED 09:13
DX: R51 Headache (principal); C50.919 Malignant neoplasm of unspecified site of unspecified female breast; Z92.21 Personal history of antineoplastic chemotherapy; J30.2 Other seasonal allergic rhinitis; Z79.899 Other long term (current) drug therapy; Z91.013 Allergy to seafood; Z91.040 Latex allergy status; Z88.5 Allergy status to narcotic agent
CPT/HCPCS: 70450; 80048; 82550; 82553; 84484; 85025; 93005; 96361; 96374; 99284; J1885

== ENCOUNTER → 2019-01-27 | Outpatient (CLI) | payer OTHER ==
[~2019-01-27] MED LIST changes: +CYCL10TA PO
--- NOTE | 2019-01-28 06:19 | ECHO ---
DATE OF STUDY: 01/27/2019 REFERRING PHYSICIAN: Dr. Eunice Lamas INDICATION: Chemotherapy that may affect the heart (breast cancer). HEIGHT: 5 feet 6 inches. WEIGHT: 71.6 kg. 2-D MEASUREMENTS: Left atrium: 2.9 cm Aortic root: 3.2 cm Ventricular septum: 1.02 cm Posterior wall: 0.98 cm Left ventricle diastole: 4.8 cm Left atrial volume index: 21 Inferior vena cava: 1.7 cm DOPPLER MEASUREMENTS: Aortic valve velocity: 126 cm/sec LVOT velocity: 71.1 cm/sec Mitral deceleration time: 48.8 cm/sec Mitral A velocity: 87.0 cm/sec No tricuspid regurgitation Very mild pulmonic regurgitation Pulmonary acceleration time: 127 ms MITRAL ANNULAR TISSUE DOPPLER: E prime septal: 5.3 cm/sec E prime lateral: 7.2 cm/sec DESCRIPTION: The rhythm was sinus. Image quality was fair. No pericardial effusion. This was a 2-D, M-mode, color flow Doppler and pulse wave Doppler examination and included mitral annular tissue Doppler. CONCLUSIONS: 1. Mild reduction overall LV systolic function (global). LVEF 48% (3D), LVEF 52% (biplane, Macias's rule, method of disks). Grade 1 LV diastolic dysfunction (impaired relaxation filling pattern). 2. No pericardial effusion. 3. Normal right ventricle size and systolic function. 4. Otherwise normal appearing echocardiogram Doppler findings.
== END ==
LOC: M CARPUL 09:04
PROVIDERS: ATTEND Internal Medicine Hematology & Oncology
DX: C50.919 Malignant neoplasm of unspecified site of unspecified female breast (principal)

== ENCOUNTER → 2019-02-19 | Outpatient (CLI) | payer OTHER ==
--- NOTE | 2019-02-19 20:40 | ECHO ---
DATE OF PROCEDURE: 02/19/2019 Date of : 1965 Age: 53 REFERRING PHYSICIAN: Dr. Eunice Lamas REASON FOR ECHOCARDIOGRAM: Chemotherapy drug monitoring. 2D MEASUREMENTS: IVS: 0.9 cm LV: 4.9cm LVPW: 1.1 cm LA: 2.8 cm Aorta: 3.3 cm RV: 2.3 cm IVC: 1.3 cm DOPPLER MEASUREMENTS: Peak velocity across the aortic valve: 1.2 m/s Peak velocity across the LVOT: 0.9 m/s Maximum tricuspid valve velocity: 1.8 m/s 2D COMMENTS: 1. Normal left ventricular size, wall thickness, but left ventricular systolic function seems to be mildly depressed with mild global hypokinesis. The estimated global left ventricular systolic ejection fraction is 45-50%. 2. Normal left atrium. Normal right atrium and right ventricle. 3. The atrial septum appeared to be normal without evidence of defect or shunt. 4. Normal aortic root. 5. Trace pericardial effusion noted, no evidence of cardiac tamponade. 6. Mildly calcified aortic valve with normal leaflet excursion. Mildly calcified mitral annulus with normal anterior mitral valve leaflet motion. Normal tricuspid valve and pulmonic valve. The proximal pulmonary artery branches were not well visualized. 7. The inferior vena cava was normal in size, central venous pressure is most likely normal. DOPPLER: It detects trace mitral regurgitation, trace tricuspid regurgitation and trace pulmonic regurgitation. The calculated pulmonary artery systolic pressure was normal. Abnormal relaxation pattern was noted across the mitral valve leaflets as well as the mitral valve annulus consistent with some features of grade 1 left ventricular diastolic dysfunction. IMPRESSION 1. Probably mildly depressed global left ventricular systolic function with mild global hypokinesis. There are some features of grade 1 left ventricular diastolic dysfunction manifested by abnormal relaxation. 2. Aortic valve sclerosis without stenosis or aortic regurgitation. 3. Mitral annulus calcification with trace mitral regurgitation. 4. Trace tricuspid regurgitation with a normal calculated pulmonary artery systolic pressure. 5. Trace pulmonic regurgitation. 6. Trace pericardial effusion noted, no evidence of cardiac tamponade. 7. This was compared with the last echocardiogram on 01/27/2019, left ventricular systolic function seems to be now mildly depressed.
== END ==
LOC: M CARPUL 11:10
PROVIDERS: ATTEND Internal Medicine Hematology & Oncology
DX: C50.919 Malignant neoplasm of unspecified site of unspecified female breast (principal); I50.1 Left ventricular failure, unspecified; I35.0 Nonrheumatic aortic (valve) stenosis; I34.0 Nonrheumatic mitral (valve) insufficiency; I37.1 Nonrheumatic pulmonary valve insufficiency; I31.3 Pericardial effusion (noninflammatory)

== ENCOUNTER → 2019-03-05 | Outpatient (CLI) | payer OTHER ==
--- NOTE | 2019-03-07 08:05 | ECHO ---
DATE OF PROCEDURE: 03/04/2019 DATE OF : 1965 AGE: 53 GENDER: Female HEIGHT: 66 inches WEIGHT: 158 pounds BODY SURFACE AREA: 1.81 m2 OUTPATIENT REFERRING PHYSICIAN: Dr. Hari Hidalgo INDICATION: Potentially cardiotoxic chemotherapy. MEASUREMENTS 2-D Measurements: RV: 3.3 cm LV: 5.3 cm Septum: 0.9 cm Posterior wall: 0.9 cm Aortic root: 3.2 cm LA: 3.6 cm LVEF: 60% Doppler Measurements: AV: 1.2 m/s LVOT: 0.92 m/s LVOT diameter: 2.0 cm MV - E 60 A 88 EA ratio 0.7 Early mitral deceleration time: 200 ms E prime medial: 6.6 A prime medial: 12 E prime lateral: 7.6 Average E/E prime ratio: 5.5/PCWP 12 mmHg PV: 0.8 m/s Pulmonary artery acceleration time: 134 ms RVSP: 25 mmHg IVC: 1.4 cm COMMENTS: Normal sinus rhythm without intraventricular conduction disturbance. M-mode and two-dimensional echocardiography was performed with pulsed, continuous wave, color flow and tissue Doppler studies. Normal left ventricular size, wall thickness and wall motion. Left atrial size upper limits of normal with grade 1 LV diastolic dysfunction, but currently normal estimated mean left atrial pressure. Normal right heart chamber sizes and motion and estimated pulmonary arterial pressure. Normal IVC size and collapse against an elevated central venous pressure. Normal appearing and functioning valvular structures. Normal aortic dimensions. No apparent intracardiac mass or pericardial effusion.
== END ==
LOC: M CARPUL 09:58
PROVIDERS: ATTEND Internal Medicine Hematology
DX: C50.919 Malignant neoplasm of unspecified site of unspecified female breast (principal)

== ENCOUNTER 2019-03-14 07:25 | Emergency (ER) | payer OTHER ==
[~2019-03-14] VITALS: Ht 167.6 cm; Wt 73.0 kg
[2019-03-14] MEDS ORDERED: AZIT-12 (08:03)
--- NOTE | 2019-03-14 08:04 | REP ---
Clinical: Acute chest pain . Comparison: 06/18/2018 . Findings: The mediastinum and cardiac silhouette are stable and within normal limits for portable technique. [id number] identified with tip in the SVC. The lung bunn are clear without acute consolidation, effusion, or pneumothorax. Skeletal structures are intact. Impression: No acute cardiopulmonary process appreciated. Electronically Signed by Arnoldo Gonsalves MD 03/14/2019 07:55 A
[2019-03-14 08:19] LABS: BASO % 0.3 % (0.0-1.0); EOS # 0.1 10^3/uL (0.0-0.5); HEMATOCRIT 37.2 % (36.0-47.0); HEMOGLOBIN 11.9 g/dl (12.0-15.5); LYMPH # 0.7 10^3/uL (1.5-5.0); MEAN CORPUSCULAR HEMOGLOBIN 29.7 pg (27.0-33.0); MEAN CORPUSCULAR VOLUME 92.8 fl (80.0-96.0); MONO # 0.4 10^3/uL (0.0-0.8); MONO % 6.6 % (0.0-5.0); NEUTROPHILS # 4.9 10^3/uL (1.5-8.5); NEUTROPHILS % 80.6 % (36.0-66.0); PLATELET COUNT, AUTOMATED 346 10^3/uL (150-450); RED BLOOD COUNT 4.01 10^6/uL (4.00-5.40); WHITE BLOOD COUNT 6.1 10^3/uL (4.0-10.0)
[2019-03-14 08:31] LABS: PARTIAL THROMBOPLASTIN TIME 27.3 SECONDS (25.0-38.4); PROTHROMBIN TIME 12.9 SECONDS (11.8-14.0)
[2019-03-14 08:44] LABS: ALBUMIN 3.9 GM/DL (3.2-5.2); ALT/SGPT 29 U/L (12-78); BILIRUBIN,DIRECT 0.2 MG/DL (0.0-0.2); BILIRUBIN,TOTAL 1.1 MG/DL (0.2-1.0); BLOOD UREA NITROGEN 14 MG/DL (7-18); CALCIUM LEVEL 9.3 MG/DL (8.5-10.1); CARBON DIOXIDE LEVEL 24 MEQ/L (21-32); CHLORIDE LEVEL 109 MEQ/L (98-107); CK-MB VALUE MASS < 1.0 NG/ML (<3.6); CPK CREATINE PHOSPHOKINASE 67 U/L (26-192); CREATININE FOR GFR 0.73 MG/DL (0.55-1.30); GLOMERULAR FILTRATION RATE > 60.0 (>51); GLUCOSE, FASTING 97 MG/DL (70-100); LIPASE 143 U/L (73-393); MB/CK RELATIVE INDEX 1.49 (< OR =4); NT-PRO BNP 27 PG/ML (<125); POTASSIUM SERUM 3.7 MEQ/L (3.5-5.1); SODIUM LEVEL 143 MEQ/L (136-145); TOTAL PROTEIN 7.6 GM/DL (6.4-8.2); TROPONIN I 0.02 NG/ML (< 0.10)
[2019-03-14] MEDS ORDERED: ISOVUE-370 76% 100ML VIAL (Q9967) As Ordered ONE (08:58)
--- NOTE | 2019-03-14 09:24 | REP ---
Clinical: Acute chest pain. Technique: Axial contrast enhanced images from the thoracic inlet to the upper abdomen using 100 ml Isovue 370 intravenous contrast material with coronal and sagittal re-formations. Comparison: 06/18/2018 Findings: Satisfactory enhancement of the pulmonary vasculature is achieved and no filling defects are identified to suggest pulmonary embolus. Thoracic aorta is normal caliber without aneurysm or dissection. Heart and pericardium are normal. Evaluation of the lung bunn demonstrates left apical and left anterior subpleural fibrosis/scarring. No acute consolidation, obvious nodule/mass, pleural effusion or pneumothorax. No adenopathy. Limited upper abdomen demonstrates innumerable hypodensities compatible with cysts. Normal bilateral adrenal glands noted. Osseous structures without focal abnormality noted. Impression: No evidence for pulmonary embolus. No acute pleuroparenchymal or mediastinal process. Electronically Signed by Arnoldo Gonsalves MD 03/14/2019 09:15 A
[2019-03-14 09:28] LABS: INFLUENZA A AMPLIFICATION NEGATIVE (NEGATIVE); INFLUENZA B AMPLIFICATION NEGATIVE (NEGATIVE)
[2019-03-14] MEDS ORDERED: NS 1,000 ML IV ONE (09:45)
[2019-03-14] MEDS ORDERED: MECLIZINE 25 MG TABLET PO ONE ×2 (11:15→14:30)
[2019-03-14 13:13] LABS: CK-MB VALUE MASS < 1.0 NG/ML (<3.6); CPK CREATINE PHOSPHOKINASE 46 U/L (26-192); MB/CK RELATIVE INDEX 2.17 (< OR =4); TROPONIN I 0.04 NG/ML (< 0.10)
[2019-03-14] MEDS ORDERED: MECL-68 PO (13:27)
[2019-03-14] MEDS ORDERED: diazePAM 10 MG/2 ML INJ (J3360) IV ONE (14:30)
[2019-03-14 15:00] VITALS: BP 124/67
--- NOTE | 2019-03-14 15:37 | REP ---
Clinical: Vertigo . Comparison: 01/25/2019. Technique: Axial noncontrast images from the skull base to the vertex with coronal re-formations. Findings: The ventricles, sulci, and cisterns are normal in position and appearance. Christiansen-white differentiation is maintained. No acute intracranial hemorrhage, mass/mass effect, pathology or trauma/injury. No evidence for acute infarction. No extra-axial fluid collection. Calvarium is intact. Paranasal sinuses and mastoid air cells are clear. Impression: Normal noncontrast head CT. No evidence for acute intracranial pathology or trauma/injury. Electronically Signed by Arnoldo Gonsalves MD 03/14/2019 03:29 P
--- NOTE | 2019-03-14 15:46 | ECGEPIP ---
[facility] - ED Test Date: 2019-03-14 Pat Name: JOSE STRINGER Department: Room: - Gender: Female Preload Supervisor: : 1965 Requested By: LINO Torres Order Number: [id number] Reading MD: Delroy Alba Measurements Intervals [place] Rate: 85 P: 11 LA: 141 QRS: -4 QRSD: 78 T: 83 QT: 366 QTc: 436 Interpretive Statements SINUS RHYTHM NONSPECIFIC T-WAVE ABNORMALITY SIMILAR TO 01/25/19 Electronically Signed on 03-14-2019 15:46:34 EST by Delroy Alba
[2019-03-14] MEDS ORDERED: VALI2TAB PO (15:50)
--- NOTE | 2019-03-14 15:53 | ECGEPIP ---
[facility] - ED Test Date: 2019-03-14 Pat Name: JOSE STRINGER Department: Room: - Gender: Female Logistics Intern: : 1965 Requested By: LINO Torres Order Number: [id number] Reading MD: Delroy Alba Measurements Intervals [place] Rate: 74 P: 23 MO: 171 QRS: -7 QRSD: 86 T: 89 QT: 386 QTc: 431 Interpretive Statements SINUS RHYTHM NONSPECIFIC T-WAVE ABNORMALITY SIMILAR TO PRIOR ON SAME DATE Electronically Signed on 03-14-2019 15:53:50 EST by Delroy Alba
== END 2019-03-14 15:42 | disposition home or self-care (01) ==
LOC: M ED 07:25
DX: R07.89 Other chest pain (principal); R42 Dizziness and giddiness; I95.1 Orthostatic hypotension; J30.2 Other seasonal allergic rhinitis; Z79.899 Other long term (current) drug therapy; Z91.013 Allergy to seafood; Z91.040 Latex allergy status; Z88.5 Allergy status to narcotic agent
CPT/HCPCS: 70450; 71045; 71275; 80048; 80076; 82550; 82553; 83690; 83880; 84484; 85025; 85610; 85730; 87040; 87502; 93005; 93041; 94760; 96360; 96361; 96375; 99285; J3360; Q9967

== ENCOUNTER 2019-03-18 09:47 | Emergency (ER) | payer OTHER ==
[~2019-03-18] VITALS: Ht 167.6 cm; Wt 72.4 kg
[~2019-03-18 09:47] MED LIST changes: +AZIT-12; +MECL-68 PO; +VALI2TAB PO
[2019-03-18] MEDS ORDERED: AMOX875T2 (10:24)
[2019-03-18 10:26] LABS: BASO % 0.4 % (0.0-1.0); EOS % 0.7 % (0.0-3.0); HEMATOCRIT 37.3 % (36.0-47.0); HEMOGLOBIN 12.3 g/dl (12.0-15.5); LYMPH # 0.8 10^3/uL (1.5-5.0); LYMPH % 14.4 % (24.0-44.0); MEAN CORPUSCULAR HEMOGLOBIN 30.6 pg (27.0-33.0); MEAN CORPUSCULAR VOLUME 92.8 fl (80.0-96.0); MONO # 0.3 10^3/uL (0.0-0.8); MONO % 6.2 % (0.0-5.0); NEUTROPHILS # 4.2 10^3/uL (1.5-8.5); NEUTROPHILS % 77.9 % (36.0-66.0); PLATELET COUNT, AUTOMATED 337 10^3/uL (150-450); RED BLOOD COUNT 4.02 10^6/uL (4.00-5.40); WHITE BLOOD COUNT 5.4 10^3/uL (4.0-10.0)
[2019-03-18 10:51] LABS: BLOOD UREA NITROGEN 16 MG/DL (7-18); CALCIUM LEVEL 9.4 MG/DL (8.5-10.1); CARBON DIOXIDE LEVEL 25 MEQ/L (21-32); CHLORIDE LEVEL 109 MEQ/L (98-107); CK-MB VALUE MASS < 1.0 NG/ML (<3.6); CPK CREATINE PHOSPHOKINASE 74 U/L (26-192); CREATININE FOR GFR 0.72 MG/DL (0.55-1.30); GLOMERULAR FILTRATION RATE > 60.0 (>51); GLUCOSE, FASTING 96 MG/DL (70-100); MB/CK RELATIVE INDEX 1.35 (< OR =4); POTASSIUM SERUM 4.2 MEQ/L (3.5-5.1); SODIUM LEVEL 143 MEQ/L (136-145); TROPONIN I 0.02 NG/ML (< 0.10)
--- NOTE | 2019-03-18 10:58 | REP ---
PORTABLE CHEST X-RAY: Single view. HISTORY: Chest pain. COMPARISON CHEST X-RAY: March 14, 2019. FINDINGS: EKG monitoring electrodes overlie the chest. Heart is not enlarged. There is a right-sided Aczfwt-S-Mrxe catheter with its tip in the expected location of the superior vena cava. The pleural angles are sharp. Pulmonary vasculature is not increased. There is some left apical parenchymal fibrosis again noted unchanged. No new infiltrate. IMPRESSION: No acute disease. Lpvhre-R-Yxbd catheter in place. Left apical interstitial fibrosis again seen. Electronically Signed by Elgin Noyola MD 03/18/2019 02:04 P
[2019-03-18 13:09] LABS: CK-MB VALUE MASS < 1.0 NG/ML (<3.6); CPK CREATINE PHOSPHOKINASE 61 U/L (26-192); MB/CK RELATIVE INDEX 1.64 (< OR =4); TROPONIN I 0.03 NG/ML (< 0.10)
[2019-03-18 14:30] VITALS: BP 129/83
--- NOTE | 2019-03-19 14:35 | ECGEPIP ---
[facility] - ED Test Date: 2019-03-18 Pat Name: JOSE STRINGER Department: Room: - Gender: Female Cone Runner: ASUNCION : 1965 Requested By: Delroy Wilhelm Order Number: [id number] Reading MD: Dionte Sim Measurements Intervals [place] Rate: 93 P: 13 GA: 128 QRS: -2 QRSD: 93 T: 96 QT: 352 QTc: 440 Interpretive Statements SINUS RHYTHM NONSPECIFIC ST & T-WAVE ABNORMALITY Similar to tracing done 03-14-19 Electronically Signed on 03-19-2019 14:35:06 EST by Dionte Sim
--- NOTE | 2019-03-19 14:50 | ECGEPIP ---
[facility] - ED Test Date: 2019-03-18 Pat Name: JOSE STRINGER Department: Room: - Gender: Female Spray Mixer: AFIA : 1965 Requested By: Delroy Wilhelm Order Number: [id number] Reading MD: Dionte Sim Measurements Intervals [place] Rate: 85 P: 8 AR: 136 QRS: -5 QRSD: 78 T: 94 QT: 362 QTc: 432 Interpretive Statements SINUS RHYTHM NONSPECIFIC ST & T-WAVE ABNORMALITY Similar to tracing done 1005 on the same date Electronically Signed on 03-19-2019 14:49:58 EST by Dionte Sim
== END 2019-03-18 14:36 | disposition home or self-care (01) ==
LOC: M ED 09:47
DX: R07.89 Other chest pain (principal); J98.4 Other disorders of lung; Z85.3 Personal history of malignant neoplasm of breast; Z92.21 Personal history of antineoplastic chemotherapy; Z82.49 Family history of ischemic heart disease and other diseases of the circulatory system; Z95.828 Presence of other vascular implants and grafts; Z79.899 Other long term (current) drug therapy; J30.2 Other seasonal allergic rhinitis; Z91.040 Latex allergy status; Z91.018 Allergy to other foods; Z88.5 Allergy status to narcotic agent

== ENCOUNTER → 2019-05-18 | Outpatient (CLI) | payer OTHER ==
[~2019-05-18] MED LIST changes: +AMOX875T2; +FAMO1TAB11; -MECL-68 PO; +MECL1TAB31 PO; +MUCI600T31 PO; +ONDA8TAB10 PO; -ONDA8TAB7 PO; +SUCR1TAB56
--- NOTE | 2019-05-18 16:18 | ECHO ---
DATE OF STUDY: 05/18/2019 REFERRING PHYSICIAN: Dr. Hari Hidalgo INDICATION: Chemotherapy that may effect the heart, breast cancer. HEIGHT: 66 inches WEIGHT: 165 pounds 2-D MEASUREMENTS: Left atrium: 2.7 cm Ventricular septum: 1.00 cm Posterior wall: 1.20 cm Left ventricle diastole: 4.0 cm Aortic root: 3.3 cm Aortic annulus: 2.0 cm Inferior vena cava: 1.2 cm DOPPLER MEASUREMENTS: Aortic valve velocity: 118 cm/sec LVOT velocity: 62.7 cm/sec No mitral regurgitation No aortic regurgitation Trace tricuspid regurgitation within normal limits Very mild pulmonic regurgitation within normal limits Mitral E velocity: 63.3 cm/sec Mitral A velocity: 93.4 cm/sec Pulmonary acceleration time: 108 ms MITRAL ANNULAR TISSUE DOPPLER E prime septal: 4.8 cm/sec E prime lateral: 7.0 cm/sec DESCRIPTION: The rhythm was sinus. Image quality was good. No pericardial effusion. This was a 2-D, M-mode, color flow Doppler and pulsed wave Doppler examination and included mitral annular tissue Doppler. CONCLUSIONS: 1. Normal left ventricle internal dimensions and wall thickness. Normal regional LV wall motion and wall thickening. Normal LV systolic function. Left ventricular ejection fraction (LVEF) 60-65% by visual estimate. Grade 1 LV diastolic dysfunction. 2. Otherwise normal appearing echocardiogram-Doppler findings.
== END ==
LOC: M CARPUL 12:27
PROVIDERS: ATTEND Internal Medicine Hematology
DX: C50.919 Malignant neoplasm of unspecified site of unspecified female breast (principal)

== ENCOUNTER → 2019-08-02 | Outpatient (CLI) | payer OTHER ==
[~2019-08-02] MED LIST changes: +CYCL-707 PO; -CYCL10TA PO; +CYCL5TAB PO; +EPIP0.3I2 IM; -FAMO1TAB11; +FAMO1TAB11 PO; +GABA-845 PO; +POTA10TA16 PO; -SUCR1TAB56; +SUCR1TAB56 PO
[2019-08-02 15:33] LABS: INR 1.02; PARTIAL THROMBOPLASTIN TIME 27.1 SECONDS (25.0-38.4); PROTHROMBIN TIME 13.1 SECONDS (11.8-14.0)
== END ==
LOC: M LRY 12:28
PROVIDERS: ATTEND Internal Medicine Hematology
DX: C50.919 Malignant neoplasm of unspecified site of unspecified female breast (principal)

== ENCOUNTER → 2019-08-04 | Outpatient (CLI) | payer OTHER ==
[~2019-08-04] MED LIST changes: +LIDOCAINE 1% MDV 20ML VIAL As Ordered ONE; +MIDAZOLAM INJ 2MG/2ML VIAL (J2250 PER 1MG) As Ordered ONE; +ceFAZolin 2 GM/D5W 50 ML IV BAG (J0690 PER 500MG) As Ordered ONE; +diphenhydrAMINE 50MG/ML VIAL (J1200) As Ordered ONE; +fentaNYL 100 MCG/2 ML INJECTION (J3010) As Ordered ONE
[2019-08-04 15:00] VITALS: BP 112/65
--- NOTE | 2019-08-05 08:21 | IRHP ---
[facility] IR Pre-Procedure H & P General Date of Service: August 04, 2019 Procedure: Same Day Surgery Interval History and Physical I have seen the patient and reviewed last H & P performed within 30 days. There is no significant interval change. History of Present Illness Chief Complaint The patient is a 53-year-old female admitted with a reason for visit of Breast Ca. PRE-PROCEDURE DIAGNOSIS: breast ca. treatment complete. HEART: normal rate. LUNGS: normal breathing at rest. ASA Classification ASA Classification: II-Mild systemic disease Mallampati Score: II NPO: Yes Problems with prior sedation: No Obstructive Sleep Apnea: No Plan moderate sedation Allergies Coded Allergies: shellfish derived (Verified Allergy, Severe, THROAT SWELLING, 05/31/19) latex (Verified Allergy, Mild, MILD RASH, 05/31/19) SEASONAL ALLERGIES (Verified Adverse Reaction, Mild, STUFFY NOSE AND WATERY EYES, 05/31/19) codeine (Verified Adverse Reaction, Mild, NAUSEA AND VOMITING, 05/31/19) Home Medications Scheduled Anastrozole (Anastrozole), 1 TAB PO DAILY Epinephrine (Epipen 2-Ralph), 1 SYRINGE IM ONCE, (Reported) Famotidine (Famotidine), PO BID, (Reported) Flaxseed Oil (Flaxseed Oil), 3,000 MG PO DAILY, (Reported) Gabapentin (Gabapentin), 600 MG PO TID, (Reported) Guaifenesin (Mucinex), 600 MG PO Q12H, (Reported) Magnesium Oxide (Magnesium Oxide), 400 MG PO DAILY, (Reported) Meloxicam (Mobic), 7.5 MG PO DAILY, (Reported) Multivitamins (Thera M Plus Tablet), 1 TAB PO DAILY, (Reported) Potassium Chloride (Potassium Chloride), 30 MEQ PO QAM, (Reported) Potassium Chloride (Potassium Chloride), 1 TAB PO DAILY, (Reported) Saccharomyces Boulardii (Probiotic), 250 MG PO DAILY, (Reported) Spironolactone (Spironolactone), 12.5 MG PO DAILY, (Reported) Sucralfate (Sucralfate), PO BID, (Reported) Scheduled PRN Acetaminophen (Acetaminophen), 500 MG PO Q6H PRN for PAIN / FEVER, (Reported) Cyclobenzaprine HCl (Cyclobenzaprine HCl), 10 MG PO TID PRN for BACK PAIN, (Reported) Diazepam (Valium), 1 TAB PO BIDP PRN for VERTIGO/DIZZINESS Fluticasone Propionate (Flonase Allergy Relief), 1 SPRAY NA BID PRN for NASAL CONGESTION, (Reported) Loratadine (Claritin), 10 MG PO DAILYPRN PRN for NASAL CONGESTION, (Reported) Meclizine HCl (Meclizine HCl), 25 MG PO Q8H PRN for VERTIGO/DIZZINESS Oxycodone HCl/Acetaminophen (Percocet 5-325 mg Tablet), 1 TAB PO TIDP PRN for PAIN VS, I&O, 24H, Fishbone Vital Signs/I&O Vital Signs Date Time Temp Pulse Resp B/P (MAP) Pulse Ox O2 Delivery O2 Flow Rate FiO2 08/04/19 15:00 97 20 98 Room Air 08/04/19 13:35 2 08/04/19 12:01 98.9 SHRUTHI SALAZAR MD August 05, 2019 08:21
--- NOTE | 2019-08-05 08:23 | POST-OPPD ---
Postoperative Procedure Note Date Of Procedure: August 04, 2019 Time Of Procedure: 13:30 PREOPERATIVE DIAGNOSIS: breast ca. treatment complete POSTOPERATIVE DIAGNOSIS: same FINDINGS: right sided port PROCEDURE: removed SURGEON: janett ANESTHESIA: mod sed ESTIMATED BLOOD LOSS: < 5 ml COMPLICATIONS: none POSTOPERATIVE CONDITION: stable SHRUTHI SALAZAR MD August 05, 2019 08:23
--- NOTE | 2019-08-05 11:09 | REP ---
IR port removal. IR moderate sedation. Clinical information: Breast cancer. Completed treatment. Physician: Dr. Chopra. Procedure: The patient was advised of the benefits, risks and alternatives of the procedure and informed consent was obtained. The time-out was performed with verification of the patient's name, MRN, site of procedure and type of procedure to be performed. The patient was positioned in the supine position on the angiographic table. The site was prepped and draped in the usual sterile fashion. Moderate sedation was performed by the physician including the presence of an independent trained observer who assisted and monitored the patient's level of consciousness and physiologic status. Following the administration of Fentanyl and Versed, the physician spent 30 minutes of continuous face to face time with the patient. A air conditioning engineer radiograph reveals right sided port. The soft tissues overlying the port pocket were anesthetized with lidocaine. An incision was made over the port using an 15 blade scalpel in the location of the prior incision. The catheter was then freed with blunt dissection and extracted. Pressure was applied to obtain hemostasis. The port was then freed with blunt dissection and subsequently removed. There are no signs of infection. After hemostasis was achieved, the incision was closed with interrupted deep 2-0 Vicryl sutures and subcuticular Monocryl sutures. The site was cleansed and covered with a sterile dressing. A follow-up radiograph demonstrates complete removal of the port. The patient tolerated the procedure well and was returned to PRU in stable condition. EBL: < 5 ml. Complications: None. Conclusion: 1. Successful explant of a right sided port. 2. No signs of infection. Thank you this referral. Electronically Signed by Natalee Chopra MD 08/05/2019 11:07 A
== END ==
LOC: M IRPRO 11:42
PROVIDERS: ATTEND Internal Medicine Hematology
DX: C50.919 Malignant neoplasm of unspecified site of unspecified female breast (principal)
CPT/HCPCS: 36590; 99152; 99153; J0690; J1200; J2250; J3010

== ENCOUNTER → 2019-08-11 | Outpatient (CLI) | payer OTHER ==
[~2019-08-11] MED LIST changes: -LIDOCAINE 1% MDV 20ML VIAL As Ordered ONE; -MIDAZOLAM INJ 2MG/2ML VIAL (J2250 PER 1MG) As Ordered ONE; -ceFAZolin 2 GM/D5W 50 ML IV BAG (J0690 PER 500MG) As Ordered ONE; -diphenhydrAMINE 50MG/ML VIAL (J1200) As Ordered ONE; -fentaNYL 100 MCG/2 ML INJECTION (J3010) As Ordered ONE
[2019-08-12 12:10] LABS: BLOOD UREA NITROGEN 17 MG/DL (7-18); CREATININE FOR GFR 0.73 MG/DL (0.55-1.30); GLOMERULAR FILTRATION RATE > 60.0 (>51)
== END ==
LOC: M LRY 16:15
PROVIDERS: ATTEND Physical Medicine & Rehabilitation
DX: Z01.812 Encounter for preprocedural laboratory examination (principal)

== ENCOUNTER → 2019-08-20 | Outpatient (CLI) | payer OTHER ==
[~2019-08-20] MED LIST changes: +DULO1CAP5 PO
== END ==
LOC: M LABSMTC 10:23
PROVIDERS: ATTEND Anesthesiology
DX: Z01.818 Encounter for other preprocedural examination (principal); Z11.59 Encounter for screening for other viral diseases
CPT/HCPCS: C9803; U0003

== ENCOUNTER 2019-08-23 12:48 | Day surgery (SDC) | payer OTHER ==
[~2019-08-23] VITALS: Ht 167.6 cm; Wt 76.2 kg
[~2019-08-23 12:48] MED LIST changes: +NS 1,000 ML IV ONE
[2019-08-23] MEDS ORDERED: fentaNYL 100 MCG/2 ML INJECTION (J3010) As Ordered ONE (14:55)
[2019-08-23] MEDS ORDERED: propofoL 200 MG/20 ML VIAL As Ordered ONE (15:24)
[2019-08-23] MEDS ORDERED: LIDOCAINE 2% 100MG/5ML SDV (FOR ANES.) As Ordered ONE (15:25)
--- NOTE | 2019-08-23 15:32 | ROOR ---
Patient Name: Laquita Whitaker Procedure Date: 08/23/2019 3:17 PM Date of : 1965 Age: 53 Room: [facility] Gender: Female Note Status: Finalized Procedure: Upper GI endoscopy Indications: Heartburn Providers: Dionte CRYSTAL MD Referring MD: DELPHINE VEE NP Requesting Provider: Medicines: Monitored Anesthesia Care Complications: No immediate complications. Procedure: Pre-Anesthesia Assessment: - The heart rate, respiratory rate, oxygen saturations, blood pressure, adequacy of pulmonary ventilation, and response to care were monitored throughout the procedure. The Endoscope was introduced through the mouth, and advanced to the second part of duodenum. The upper GI endoscopy was accomplished without difficulty. The patient tolerated the procedure well. Findings: Mild gastritis, This was biopsied with a cold forceps for histology. The exam of the stomach was otherwise normal. The examined esophagus was normal. The examined duodenum was normal. Impression: - Mild gastritis. Biopsied - Otherwise normal stomach. - Normal esophagus. - Normal examined duodenum. Recommendation: - Telephone endoscopist for pathology results in 2 weeks. - Continue present medications. - Observe patient's clinical course. Dionte Crystal MD Dionte CRYSTAL MD 08/23/2019 3:32:13 PM Electronically signed by Dionte CRYSTAL MD Number of Addenda: 0 Note Initiated On: 08/23/2019 3:17 PM Estimated Blood Loss: Estimated blood loss: none.
[2019-08-23 15:54] VITALS: BP 142/67
== END 2019-08-23 15:55 | disposition home or self-care (01) ==
LOC: M OPP 12:48
PROVIDERS: ATTEND Internal Medicine Gastroenterology
DX: K29.70 Gastritis, unspecified, without bleeding (principal); R12 Heartburn; K21.9 Gastro-esophageal reflux disease without esophagitis; Z79.82 Long term (current) use of aspirin; Z79.899 Other long term (current) drug therapy; Z88.5 Allergy status to narcotic agent; Z91.040 Latex allergy status; Z91.018 Allergy to other foods
CPT/HCPCS: 43239; 88305; J3010

== ENCOUNTER → 2019-09-24 | Outpatient (CLI) | payer OTHER ==
[~2019-09-24] MED LIST changes: -MELA5TAB31 PO; +MELA5TAB36 PO; -NS 1,000 ML IV ONE
== END ==
LOC: M LABSMTC 11:34
PROVIDERS: ATTEND Orthopaedic Surgery
DX: Z03.818 Encounter for observation for suspected exposure to other biological agents ruled out (principal); Z11.59 Encounter for screening for other viral diseases

== ENCOUNTER → 2019-11-06 | Outpatient (CLI) | payer OTHER | LOC: M LABSMTC 10:31 | PROVIDERS: ATTEND Orthopaedic Surgery | DX: Z11.59 Encounter for screening for other viral diseases (principal); Z20.828 Contact with and (suspected) exposure to other viral communicable diseases ==

== ENCOUNTER → 2020-02-18 | Outpatient (CLI) | payer OTHER ==
--- NOTE | 2020-02-18 09:06 | REP ---
INDICATION: CYSTIC DISEASE OF LIVER. COMPARISON: Comparison CT study May 28, 2018. Comparison sonography March 27, 2011.. TECHNIQUE: Right upper quadrant sonography. FINDINGS: Scanning through the right upper quadrant of the abdomen is performed. The gallbladder is surgically absent. Common bile duct is normal post cholecystectomy measuring 0.6 cm in diameter. There is no evidence of ascites or right renal abnormality. The right kidney measures 9.8 x 6.1 x 4.0 cm. No pancreatic abnormality is observed. A normal caliber aorta is encountered. Hepatic imaging confirms the presence of multiple simple cysts. These are unchanged in number and distribution and size when compared with the May 28, [address] study. They range in size up to a cyst in the posterior aspect of the right lobe measuring 5.6 x 3.5 x 3.1 cm. No hepatic mass lesion is observed. IMPRESSION: Multiple simple hepatic cysts again seen. No mass lesion is observed. Post cholecystectomy. Otherwise negative.. <Electronically signed by Eugene Noyola > 02/18/20 [id number]
== END ==
LOC: M RAD 06:54
PROVIDERS: ATTEND Internal Medicine Gastroenterology
DX: Q44.6 Cystic disease of liver (principal); Z90.49 Acquired absence of other specified parts of digestive tract

== ENCOUNTER → 2020-02-24 | Outpatient (CLI) | payer OTHER ==
--- NOTE | 2020-02-24 13:33 | REP ---
INDICATION: PRIMARY OSTEOARTHRITIS, UNSPECIFIED ANKLE AND FOOT. COMPARISON: Radionuclide bone scan dated 11/23/2018. TECHNIQUE: There are a total of 16 views. 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 Cervical Spine: There are no lytic or destructive lesions. Mineralization is normal. Vertebral bodies and facets are unremarkable. Thoracic spine: There are no lytic or destructive lesions. Vertebral body heights and alignment are normal. The pedicles are unremarkable. Lumbar spine: There are no lytic or destructive lesions. The pedicles are unremarkable. There is advanced degenerative disc disease at L5-S1. Humeri: There are no lytic or destructive lesions. Mineralization is normal. Femui: There are no lytic or destructive lesions. Mineralization is normal. The hip articulations are unremarkable. 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 Otherwise negative skeletal survey. Degenerative disc disease at L5-S1. <Electronically signed by Bernardino Rubio > 02/24/20 [id number]
== END ==
LOC: M RAD 09:49
PROVIDERS: ATTEND Nurse Practitioner Adult Health
DX: M19.079 Primary osteoarthritis, unspecified ankle and foot (principal); Z79.899 Other long term (current) drug therapy

== ENCOUNTER → 2020-03-21 | Outpatient (CLI) | payer OTHER ==
[~2020-03-21] MED LIST changes: +PROBCAP14 PO
--- NOTE | 2020-03-21 13:44 | DEXAMM ---
INDICATION: BREAST CA,ON AI. COMPARISON: Comparison study is from 20 January 2012.. TECHNIQUE: Bone density was measured using dual-energy x-ray absorptionmetry (DEXA). FINDINGS: AP SPINE L1-L4 BMD 1.169 g/cm2 Young Adult T-Score -0.1 Age Matched Z-Score 0.8. LT FEMUR, TOTAL BMD 0.815 g/cm2 Young Adult T-Score -1.5 Age Matched Z-Score -0.8. LT NECK BMD 0.843 g/cm2 Young Adult T-Score -1.4 Age Matched Z-Score -0.3. RT FEMUR, TOTAL BMD 0.840 g/cm2 Young Adult T-Score -1.3 Age Matched Z-Score -0.6. RT NECK BMD 0.861 g/cm2 Young Adult T-Score -1.3 Age Matched Z-Score -0.2. IMPRESSION: There is normal bone density of the spine. There is low bone density of the left hip. There is low bone density of the right hip. The density of the spine has decreased 3.7% since the initial exam on January 20, 2012. The density of the left hip has decreased 12.2% since initial exam on January 20, 2012. The density of the right hip has decreased 7.2% since the initial exam on January 20, 2012. FOLLOW-UP: Recommendation for the next bone density exam: 2 years. <Electronically signed by Eugene Noyola > 03/21/20 [id number]
== END ==
LOC: M WHC 12:48
PROVIDERS: ATTEND Specialist
DX: M85.851 Other specified disorders of bone density and structure, right thigh (principal); M85.852 Other specified disorders of bone density and structure, left thigh; C50.919 Malignant neoplasm of unspecified site of unspecified female breast

== ENCOUNTER → 2020-11-24 | Outpatient (REF) | payer OTHER ==
[~2020-11-24] MED LIST changes: +ASPI-569 PO; -ASPI81TAEC PO; +CITRTAB18 PO; +COVI30VI IM; +GABA-283 PO; -GABA-845 PO; +GABA600T4 PO; -HYDR1CRE93 TOP; +HYDR28CR33 TOP; +OMEP-218 PO; +WHEAOIL4 PO
== END ==
LOC: M LAB REF 17:05
PROVIDERS: ATTEND Internal Medicine Nephrology
DX: E83.42 Hypomagnesemia (principal)

== ENCOUNTER → 2021-01-16 | Outpatient (CLI) | payer OTHER ==
[~2021-01-16] MED LIST changes: -KLOR10TA76 PO; +POTA-136 PO
--- NOTE | 2021-01-16 11:46 | REP ---
INDICATION: CYSTIC DISEASE OF LIVER. COMPARISON: Prior right upper quadrant ultrasound of 02/18/2020 which showed multiple Paddock cysts TECHNIQUE: Real-time sonographic evaluation of the right upper quadrant with Doppler FINDINGS: Multiple ultrasonographic images of the liver show the hepatic parenchymal echo texture to be unchanged. There are multiple hepatic cysts status quo. There are no focal masses. There is no intrahepatic ductal dilatation. The common bile duct measures approximately 4 mm in its greatest transverse dimension. Images of the pancreatic region show no gross abnormality. Possible mild right-sided hydronephrosis. IMPRESSION: 1. Stable appearing hepatic cyst. 2. Possible mild right-sided hydronephrosis the etiology of which is uncertain. Accredited by the [employer] in General Ultrasound. <Electronically signed by Hamilton Cortez > 01/16/21 [id number]
== END ==
LOC: M RAD 07:16
PROVIDERS: ATTEND Internal Medicine Gastroenterology
DX: Q44.6 Cystic disease of liver (principal)

== ENCOUNTER → 2021-01-29 | Outpatient (CLI) | payer OTHER ==
[2021-01-29 16:53] LABS: BLOOD UREA NITROGEN 14 MG/DL (7-18); CREATININE FOR GFR 0.77 MG/DL (0.55-1.30); GLOMERULAR FILTRATION RATE > 60.0 (>51)
== END ==
LOC: M WUC 13:54
PROVIDERS: ATTEND Internal Medicine Gastroenterology
DX: K29.50 Unspecified chronic gastritis without bleeding (principal)

== ENCOUNTER → 2021-02-01 | Outpatient (CLI) | payer OTHER ==
[~2021-02-01] MED LIST changes: +GASTROGRAFIN SOLUTION 30ML (Q9963) As Ordered ONE; +ISOVUE-370 76% 100ML VIAL As Ordered ONE
--- NOTE | 2021-02-01 15:37 | REP ---
INDICATION: ABN FINDING ON IMAGING OF DIGESTIVE T/HYDRONEPHROS. COMPARISON: Multiple the latest 04/22/2018 contrast-enhanced examination and 05/28/2018 noncontrast examination TECHNIQUE: Standard helical technique after the intravenous administration of 100 cc Isovue 370 and oral bowel preparatory contrast administration. FINDINGS: The lung bases are clear and unchanged. There are multiple cysts in the liver status quo. No enhancing hepatic lesions have developed. The spleen, pancreas, adrenal glands, and kidneys are unchanged and again seen to be within normal limits. The abdominal aorta and para-aortic regions are unchanged and again seen to be within normal limits. The bowel loops and the mesenteries are within normal limits. There is no evidence of a mass or adenopathy. There is no free fluid or free air. Bone window technique throughout the examination shows no significant change in appearance of the osseous structures. IMPRESSION: There is no evidence of acute disease. Findings as described above. <Electronically signed by Hamilton Cortez > 02/01/21 [id number]
== END ==
LOC: M RAD 13:05
PROVIDERS: ATTEND Internal Medicine Gastroenterology
DX: N13.39 Other hydronephrosis (principal); R93.3 Abnormal findings on diagnostic imaging of other parts of digestive tract
CPT/HCPCS: 74177; Q9963; Q9967

== ENCOUNTER → 2021-03-19 | Outpatient (CLI) | payer OTHER ==
[~2021-03-19] MED LIST changes: -GASTROGRAFIN SOLUTION 30ML (Q9963) As Ordered ONE; -ISOVUE-370 76% 100ML VIAL As Ordered ONE
[2021-03-19 17:08] LABS: BASO % 0.4 % (0.0-1.0); EOS # 0.1 10^3/uL (0.0-0.5); EOS % 2.2 % (0.0-3.0); HEMATOCRIT 38.2 % (36.0-47.0); LYMPH # 1.1 10^3/uL (1.5-5.0); LYMPH % 22.3 % (24.0-44.0); MEAN CORPUSCULAR HEMOGLOBIN 28.4 pg (27.0-33.0); MEAN CORPUSCULAR HGB CONC 31.4 g/dl (32.0-36.5); MEAN CORPUSCULAR VOLUME 90.5 fl (80.0-96.0); MONO # 0.5 10^3/uL (0.0-0.8); NEUTROPHILS # 3.3 10^3/uL (1.5-8.5); NEUTROPHILS % 64.7 % (36.0-66.0); PLATELET COUNT, AUTOMATED 341 10^3/uL (150-450); RED BLOOD COUNT 4.22 10^6/uL (4.00-5.40); WHITE BLOOD COUNT 5.1 10^3/uL (4.0-10.0)
[2021-03-19 17:15] LABS: ALBUMIN 4.2 GM/DL (3.2-5.2); ALT/SGPT 25 U/L (12-78); BILIRUBIN,TOTAL 0.8 MG/DL (0.2-1.0); BLOOD UREA NITROGEN 19 MG/DL (7-18); CALCIUM LEVEL 9.1 MG/DL (8.5-10.1); CARBON DIOXIDE LEVEL 26 MEQ/L (21-32); CHLORIDE LEVEL 109 MEQ/L (98-107); CREATININE FOR GFR 0.82 MG/DL (0.55-1.30); GLOMERULAR FILTRATION RATE > 60.0 (>51); GLUCOSE, FASTING 97 MG/DL (70-100); SODIUM LEVEL 142 MEQ/L (136-145); TOTAL PROTEIN 7.4 GM/DL (6.4-8.2)
== END ==
LOC: M WUC 11:11
PROVIDERS: ATTEND Specialist
DX: M94.0 Chondrocostal junction syndrome [Tietze] (principal); Q44.6 Cystic disease of liver; Z79.899 Other long term (current) drug therapy

== ENCOUNTER → 2021-10-15 | Outpatient (CLI) | payer OTHER ==
[~2021-10-15] MED LIST changes: +CVS1CAP2 PO; +EXEM25TA PO; +GABA-282 PO; +INOS650T3 PO; +MINERALS PO; +OMEP-173 PO; -OMEP-218 PO; +ONDA-84 PO; -ONDA8TAB10 PO; +POTA-149 PO; -POTA10TA16 PO; +POTA1TAB14 PO; -PROC10TA4 PO; +PROC10TA5 PO; +PROL60SO SC; +multizyme PO
== END ==
LOC: M LABSMTC 10:22
PROVIDERS: ATTEND Anesthesiology
DX: Z01.812 Encounter for preprocedural laboratory examination (principal); Z20.822 Contact with and (suspected) exposure to COVID-19

== ENCOUNTER 2021-10-19 09:57 | Day surgery (SDC) | payer OTHER ==
[~2021-10-19] VITALS: Ht 167.6 cm; Wt 69.9 kg
[~2021-10-19 09:57] MED LIST changes: +NS 1,000 ML IV ONE
[2021-10-19] MEDS ORDERED: propofoL 200 MG/20 ML VIAL As Ordered ONE (12:02)
[2021-10-19] MEDS ORDERED: LIDOCAINE 2% 100MG/5ML SDV (FOR ANES.) As Ordered ONE (12:02)
[2021-10-19 12:50] VITALS: BP 113/65
== END 2021-10-19 13:06 | disposition home or self-care (01) ==
LOC: M OPP 09:57
PROVIDERS: ATTEND Internal Medicine Gastroenterology
DX: Z12.11 Encounter for screening for malignant neoplasm of colon (principal); Z80.0 Family history of malignant neoplasm of digestive organs; K52.9 Noninfective gastroenteritis and colitis, unspecified; K63.89 Other specified diseases of intestine; E78.5 Hyperlipidemia, unspecified; K21.9 Gastro-esophageal reflux disease without esophagitis; M19.90 Unspecified osteoarthritis, unspecified site; M79.7 Fibromyalgia; F41.9 Anxiety disorder, unspecified; G47.30 Sleep apnea, unspecified; Z85.3 Personal history of malignant neoplasm of breast; Z92.21 Personal history of antineoplastic chemotherapy; Z92.3 Personal history of irradiation; Z88.5 Allergy status to narcotic agent; Z91.013 Allergy to seafood; Z91.040 Latex allergy status; Z79.899 Other long term (current) drug therapy

== ENCOUNTER → 2022-04-25 | Outpatient (CLI) | payer OTHER ==
[~2022-04-25] MED LIST changes: +DICL1GEL3 TOP; -NS 1,000 ML IV ONE; -POTA10CA32 PO; +POTA10CA33 PO
== END ==
LOC: M WHC 12:39
PROVIDERS: ATTEND Specialist
DX: M85.852 Other specified disorders of bone density and structure, left thigh (principal)

== ENCOUNTER → 2022-04-26 | Outpatient (REF) | payer OTHER | LOC: M PLALAB 15:20 | PROVIDERS: ATTEND Nurse Practitioner Family | DX: Z12.4 Encounter for screening for malignant neoplasm of cervix (principal); N95.2 Postmenopausal atrophic vaginitis | CPT/HCPCS: 87624; G0123 ==

== ENCOUNTER 2022-04-27 11:24 | Emergency (ER) | payer OTHER ==
[~2022-04-27] VITALS: Ht 167.6 cm; Wt 68.0 kg
[~2022-04-27 11:24] MED LIST changes: -DICL1GEL3 TOP
[2022-04-27] MEDS ORDERED: INOS650T3 PO (11:39)
[2022-04-27] MEDS ORDERED: DICL1GEL3 TOP (11:39)
[2022-04-27 11:52] VITALS: BP 129/60
[2022-04-27] MEDS ORDERED: ONDANSETRON 4MG 2ML VIAL IV ONE (12:10)
[2022-04-27] MEDS ORDERED: NS 1,000 ML IV ONE (12:10)
[2022-04-27] MEDS ORDERED: MORPHINE 4 MG/ML 1ML VIAL IV ONE (12:15)
[2022-04-27 12:45] LABS: BASO % 0.5 % (0.0-1.0); EOS % 0.5 % (0.0-3.0); HEMATOCRIT 37.7 % (36.0-47.0); LYMPH # 0.9 10^3/uL (1.5-5.0); LYMPH % 20.1 % (24.0-44.0); MEAN CORPUSCULAR HEMOGLOBIN 29.1 pg (27.0-33.0); MEAN CORPUSCULAR HGB CONC 31.8 g/dl (32.0-36.5); MEAN CORPUSCULAR VOLUME 91.3 fl (80.0-96.0); MONO # 0.4 10^3/uL (0.0-0.8); MONO % 9.6 % (2.0-8.0); NEUTROPHILS % 69.1 % (36.0-66.0); PLATELET COUNT, AUTOMATED 287 10^3/uL (150-450); RED BLOOD COUNT 4.13 10^6/uL (4.00-5.40); WHITE BLOOD COUNT 4.4 10^3/uL (4.0-10.0)
[2022-04-27] MEDS ORDERED: ISOVUE-370 76% 100ML VIAL As Ordered ONE (12:53)
[2022-04-27 13:15] LABS: ALBUMIN 3.7 G/DL (3.2-5.2); BILIRUBIN,DIRECT 0.4 MG/DL (<0.4); BILIRUBIN,TOTAL 1.5 MG/DL (0.3-1.2); TOTAL PROTEIN 6.5 G/DL (5.7-8.2)
== END 2022-04-27 16:49 | disposition home or self-care (01) ==
LOC: M ED 11:24
DX: R10.9 Unspecified abdominal pain (principal); S76.011A Strain of muscle, fascia and tendon of right hip, initial encounter; M25.551 Pain in right hip; M16.11 Unilateral primary osteoarthritis, right hip; G47.33 Obstructive sleep apnea (adult) (pediatric); M54.50 Low back pain, unspecified; K21.9 Gastro-esophageal reflux disease without esophagitis; E78.5 Hyperlipidemia, unspecified; F41.9 Anxiety disorder, unspecified; Z87.442 Personal history of urinary calculi; Z88.6 Allergy status to analgesic agent; Z91.013 Allergy to seafood; Z91.040 Latex allergy status; Z79.891 Long term (current) use of opiate analgesic; Z79.810 Long term (current) use of selective estrogen receptor modulators (SERMs); Z79.83 Long term (current) use of bisphosphonates; Z79.899 Other long term (current) drug therapy
CPT/HCPCS: 71046; 73502; 74177; 76705; 76856; 80047; 80076; 81000; 81015; 83605; 83690; 85025; 93971; 96374; 96375; 99284; J2270; J2405

== ENCOUNTER → 2022-05-25 | Outpatient (CLI) | payer OTHER ==
[~2022-05-25] MED LIST changes: +DICL1GEL3 TOP
== END ==
LOC: M RAD 10:50
PROVIDERS: ATTEND Orthopaedic Surgery
DX: M25.551 Pain in right hip (principal)

== ENCOUNTER → 2022-05-25 | Outpatient (CLI) | payer OTHER ==
[2022-05-25 11:33] LABS: HEMATOCRIT 38.9 % (36.0-47.0); HEMOGLOBIN 12.5 g/dl (12.0-15.5); MEAN CORPUSCULAR HEMOGLOBIN 29.7 pg (27.0-33.0); MEAN CORPUSCULAR HGB CONC 32.1 g/dl (32.0-36.5); MEAN CORPUSCULAR VOLUME 92.4 fl (80.0-96.0); PLATELET COUNT, AUTOMATED 286 10^3/uL (150-450); RED BLOOD COUNT 4.21 10^6/uL (4.00-5.40); WHITE BLOOD COUNT 4.8 10^3/uL (4.0-10.0)
[2022-05-25 11:47] LABS: ERYTHROCYTE SEDIMENTATION RATE 7 mm/hr (0-30)
[2022-05-25 11:55] LABS: URIC ACID 2.4 MG/DL (3.1-7.8)
[2022-05-25 11:58] LABS: C REACTIVE PROTEIN QUANTITATIV < 0.40 MG/DL (<1.0)
[2022-05-25 11:59] LABS: RHEUMATOID FACTOR QUANT < 3.5 IU/ML (<14)
[2022-05-25 12:02] LABS: ALBUMIN 4.3 G/DL (3.2-5.2); ALKALINE PHOSPHATASE 22 U/L (46-116); ALT/SGPT 26 U/L (7.0-40); AST/SGOT 21 U/L (<34); BILIRUBIN,TOTAL 1.2 MG/DL (0.3-1.2); BLOOD UREA NITROGEN 7 MG/DL (9-23); CALCIUM LEVEL 9.2 MG/DL (8.5-10.1); CARBON DIOXIDE LEVEL 26 MMOL/L (20-31); CHLORIDE LEVEL 108 MMOL/L (98-107); CREATININE FOR GFR 0.57 MG/DL (0.55-1.30); GLOMERULAR FILTRATION RATE > 60.0 (>51); GLUCOSE, FASTING 96 MG/DL (60-100); POTASSIUM SERUM 4.2 MMOL/L (3.5-5.1); SODIUM LEVEL 139 MMOL/L (136-145)
== END ==
LOC: M LAB 10:43
PROVIDERS: ATTEND Physician Assistant
DX: Z79.899 Other long term (current) drug therapy (principal); Z82.69 Family history of other diseases of the musculoskeletal system and connective tissue

== ENCOUNTER → 2022-07-16 | Outpatient (CLI) | payer OTHER ==
[~2022-07-16] VITALS: Ht 167.6 cm; Wt 63.5 kg
[~2022-07-16] MED LIST changes: +ACET650T61 PO; +AMIT25TA17 PO; +CBD; +FAMO40TA3 PO; +MIRA3350 PO; +POTA-298 PO; -POTA1TAB14 PO; +[UNRECOGNIZED DRUG - CODE] PO
[2022-07-16 13:42] VITALS: BP 108/69
== END ==
LOC: M PAL 13:28
PROVIDERS: ATTEND Nurse Practitioner Adult Health
DX: C50.912 Malignant neoplasm of unspecified site of left female breast (principal); Z92.3 Personal history of irradiation; Z92.21 Personal history of antineoplastic chemotherapy; Z51.5 Encounter for palliative care; R20.2 Paresthesia of skin; M19.90 Unspecified osteoarthritis, unspecified site; M85.851 Other specified disorders of bone density and structure, right thigh; M85.852 Other specified disorders of bone density and structure, left thigh; Z90.49 Acquired absence of other specified parts of digestive tract; J30.2 Other seasonal allergic rhinitis; Z79.811 Long term (current) use of aromatase inhibitors; Z79.899 Other long term (current) drug therapy; Z88.5 Allergy status to narcotic agent; Z88.6 Allergy status to analgesic agent; Z91.040 Latex allergy status; Z91.013 Allergy to seafood

== ENCOUNTER → 2022-07-29 | Outpatient (CLI) | payer OTHER ==
[~2022-07-29] MED LIST changes: +**SFHN** LIDOCAINE 1% MDV 20ML VIAL ONE; +ISOVUE-300 61% 100ML VIAL ONE; +methylPREDNISolone 80MG/ML SUSP 1ML VIAL ONE
== END ==
LOC: M PLAIMG 12:37
PROVIDERS: ATTEND Student in an Organized Health Care Education/Training Program
DX: M25.551 Pain in right hip (principal)
CPT/HCPCS: 20610; 77002; J1040; Q9967

== ENCOUNTER → 2022-10-17 | Outpatient (CLI) | payer OTHER ==
[~2022-10-17] VITALS: Ht 167.6 cm; Wt 65.8 kg
[~2022-10-17] MED LIST changes: -**SFHN** LIDOCAINE 1% MDV 20ML VIAL ONE; -AMIT25TA17 PO; +AMIT25TA19 PO; +DICL100G10 TOP; -DICL1GEL3 TOP; -GABA-283 PO; +GABA-284 PO; -ISOVUE-300 61% 100ML VIAL ONE; -K-TA10TA2 PO; +MAG-400T7 PO; +MECL-86 PO; +POTA-165 PO; -POTA10CA33 PO; +POTA10CA60 PO; -methylPREDNISolone 80MG/ML SUSP 1ML VIAL ONE
[2022-10-17 13:54] VITALS: BP 126/69; O2SAT 97
== END ==
LOC: M PAL 13:46
PROVIDERS: ATTEND Nurse Practitioner Adult Health
DX: C50.912 Malignant neoplasm of unspecified site of left female breast (principal); Z92.3 Personal history of irradiation; Z92.21 Personal history of antineoplastic chemotherapy; Z51.5 Encounter for palliative care; Z90.49 Acquired absence of other specified parts of digestive tract; M79.652 Pain in left thigh; J30.2 Other seasonal allergic rhinitis; Z79.811 Long term (current) use of aromatase inhibitors; Z79.899 Other long term (current) drug therapy; Z88.5 Allergy status to narcotic agent; Z88.6 Allergy status to analgesic agent; Z91.040 Latex allergy status; Z91.013 Allergy to seafood

== ENCOUNTER → 2022-11-21 | Outpatient (CLI) | payer OTHER ==
[~2022-11-21] MED LIST changes: +MECL-209 PO; -MECL1TAB31 PO
== END ==
LOC: M RAD 11:31
PROVIDERS: ATTEND Registered Nurse
DX: M79.641 Pain in right hand (principal)

== ENCOUNTER → 2022-11-26 | Outpatient (CLI) | payer OTHER ==
[2022-11-26 13:46] LABS: BASO % 0.7 % (0.0-1.0); EOS # 0.1 10^3/uL (0.0-0.5); EOS % 1.3 % (0.0-3.0); HEMOGLOBIN 11.7 g/dl (12.0-15.5); LYMPH # 1.2 10^3/uL (1.5-5.0); LYMPH % 27.2 % (24.0-44.0); MEAN CORPUSCULAR HEMOGLOBIN 29.8 pg (27.0-33.0); MEAN CORPUSCULAR HGB CONC 31.6 g/dl (32.0-36.5); MEAN CORPUSCULAR VOLUME 94.1 fl (80.0-96.0); MONO # 0.5 10^3/uL (0.0-0.8); MONO % 10.3 % (2.0-8.0); NEUTROPHILS # 2.7 10^3/uL (1.5-8.5); NEUTROPHILS % 60.3 % (36.0-66.0); PLATELET COUNT, AUTOMATED 334 10^3/uL (150-450); RED BLOOD COUNT 3.93 10^6/uL (4.00-5.40); WHITE BLOOD COUNT 4.5 10^3/uL (4.0-10.0)
[2022-11-26 14:07] LABS: C REACTIVE PROTEIN QUANTITATIV < 0.40 MG/DL (<1.0); CPK CREATINE PHOSPHOKINASE 61 U/L (34-145); ERYTHROCYTE SEDIMENTATION RATE 8 mm/hr (0-30); IRON (FE) 74 UG/DL (50-170); MAGNESIUM LEVEL 2.2 MG/DL (1.8-2.4); PHOSPHORUS LEVEL 3.8 MG/DL (2.5-4.9)
[2022-11-26 14:09] LABS: FOLATE 22.69 NG/ML (>5.4); TOTAL 25(OH) VITAMIN D 26.4 NG/ML (20.0-100.0)
[2022-11-26 14:10] LABS: VITAMIN B12 LEVEL 392 PG/ML (211-911)
== END ==
LOC: M LAB 12:11
PROVIDERS: ATTEND Internal Medicine
DX: M25.50 Pain in unspecified joint (principal); M79.10 Myalgia, unspecified site; R53.83 Other fatigue

== ENCOUNTER → 2022-12-19 | Outpatient (CLI) | payer OTHER ==
[~2022-12-19] MED LIST changes: +CELE1CAP8 PO; +ERGO500029 PO; +[UNRECOGNIZED DRUG - OTHER] PO
== END ==
LOC: M PAL 08:57
PROVIDERS: ATTEND Nurse Practitioner Family
DX: Z85.3 Personal history of malignant neoplasm of breast (principal); Z51.5 Encounter for palliative care; Z79.51 Long term (current) use of inhaled steroids; Z79.899 Other long term (current) drug therapy; Z91.013 Allergy to seafood; Z91.040 Latex allergy status; Z88.6 Allergy status to analgesic agent; Z88.5 Allergy status to narcotic agent; J30.2 Other seasonal allergic rhinitis; Z92.21 Personal history of antineoplastic chemotherapy; Z92.3 Personal history of irradiation; G89.29 Other chronic pain

== ENCOUNTER 2023-02-10 07:35 | Day surgery (SDC) | payer OTHER ==
[~2023-02-10] VITALS: Ht 167.6 cm; Wt 68.6 kg
[~2023-02-10 07:35] MED LIST changes: -CELE1CAP8 PO; +CELE1CAP99 PO; -EMEN150S IV; +FOSA150V36 IV; +LIDOCAINE 2% 100MG/5ML SDV (FOR ANES.) As Ordered ONE; +MIDAZOLAM INJ 2MG/2ML VIAL As Ordered ONE; +ONDANSETRON 4MG 2ML VIAL As Ordered ONE; +UNRESOLVED CLARIFICATION ENTRY XX SCH; +[UNRECOGNIZED DRUG - OTHER] PO; +fentaNYL 100 MCG/2 ML INJECTION As Ordered ONE; +propofoL 200 MG/20 ML VIAL As Ordered ONE
[2023-02-10] MEDS ORDERED: LR 1,000 ML IV SCH ×2 (08:00→10:00)
[2023-02-10] MEDS ORDERED: LIDOCAINE 1% SDV 30ML VIAL As Ordered ONE (08:12)
[2023-02-10] MEDS ORDERED: ceFAZolin SOD 2 GM in IV 1 EA IV ONE (08:30)
[2023-02-10] MEDS ORDERED: ACETAMINOPHEN 1000MG 100ML IV BAG As Ordered ONE (08:59)
[2023-02-10] MEDS ORDERED: BACITRACIN OINTMENT 30GM TUBE As Ordered ONE (09:29)
[2023-02-10] MEDS ORDERED: PERC5TAB12 PO (09:59)
[2023-02-10] MEDS ORDERED: HYDROMORPHONE HCL 0.5 MG/ 0.5 ML SYRINGE IV PRN (10:00)
[2023-02-10] MEDS ORDERED: oxyCODONE 5MG TAB PO PRN (10:00)
[2023-02-10] MEDS ORDERED: ONDANSETRON 4MG 2ML VIAL IV PRN (10:00)
[2023-02-10] MEDS ORDERED: fentaNYL 100 MCG/2 ML INJECTION IV PRN (10:00)
[2023-02-10 11:38] VITALS: BP 146/74; TEMP 98.4; O2SAT 97
== END 2023-02-10 11:38 | disposition home or self-care (01) ==
LOC: M SDC 07:35
PROVIDERS: ATTEND Orthopaedic Surgery Hand Surgery
DX: M25.731 Osteophyte, right wrist (principal); Z88.5 Allergy status to narcotic agent; Z88.8 Allergy status to other drugs, medicaments and biological substances; Z91.040 Latex allergy status; Z91.013 Allergy to seafood; J30.2 Other seasonal allergic rhinitis
CPT/HCPCS: 26230; 76000; J0131; J0665; J0690; J1100; J2250; J2405; J3010

== ENCOUNTER → 2023-02-21 | Outpatient (CLI) | payer OTHER ==
[~2023-02-21] MED LIST changes: -LIDOCAINE 2% 100MG/5ML SDV (FOR ANES.) As Ordered ONE; -MIDAZOLAM INJ 2MG/2ML VIAL As Ordered ONE; -ONDANSETRON 4MG 2ML VIAL As Ordered ONE; -UNRESOLVED CLARIFICATION ENTRY XX SCH; -fentaNYL 100 MCG/2 ML INJECTION As Ordered ONE; -propofoL 200 MG/20 ML VIAL As Ordered ONE
== END ==
LOC: M SOG 07:59
PROVIDERS: ATTEND Physician Assistant
DX: M79.641 Pain in right hand (principal)

== ENCOUNTER → 2023-03-20 | Outpatient (CLI) | payer OTHER ==
[~2023-03-20] VITALS: Ht 167.6 cm; Wt 67.6 kg
[~2023-03-20] MED LIST changes: +VALE500C2 PO
[2023-03-20 13:02] VITALS: BP 128/84; O2SAT 98
== END ==
LOC: M PAL 12:22
PROVIDERS: ATTEND Nurse Practitioner Adult Health
DX: G89.29 Other chronic pain (principal); C50.912 Malignant neoplasm of unspecified site of left female breast; M79.601 Pain in right arm; M79.602 Pain in left arm; M85.88 Other specified disorders of bone density and structure, other site; R53.83 Other fatigue; Z51.5 Encounter for palliative care; Z79.51 Long term (current) use of inhaled steroids; Z79.811 Long term (current) use of aromatase inhibitors; Z79.899 Other long term (current) drug therapy; Z89.029 Acquired absence of unspecified finger(s); Z91.013 Allergy to seafood; Z91.030 Bee allergy status; Z91.040 Latex allergy status; Z88.6 Allergy status to analgesic agent; Z88.5 Allergy status to narcotic agent; Z92.21 Personal history of antineoplastic chemotherapy; Z92.3 Personal history of irradiation; Z90.710 Acquired absence of both cervix and uterus; Z82.41 Family history of sudden cardiac death; J30.2 Other seasonal allergic rhinitis

== ENCOUNTER → 2023-04-15 | Outpatient (CLI) | payer OTHER | LOC: M WHC 09:32 | PROVIDERS: ATTEND Internal Medicine Medical Oncology | DX: N63.20 Unspecified lump in the left breast, unspecified quadrant (principal); Z85.3 Personal history of malignant neoplasm of breast; R07.81 Pleurodynia; R92.342 Mammographic extreme density, left breast; D17.39 Benign lipomatous neoplasm of skin and subcutaneous tissue of other sites | CPT/HCPCS: 76642; 77066; G0279 ==

== ENCOUNTER 2023-04-19 13:21 | Emergency (ER) | payer OTHER ==
[~2023-04-19] VITALS: Ht 167.6 cm; Wt 64.6 kg
[2023-04-19] MEDS ORDERED: dexAMETHasone 20MG/5ML VIAL IV ONE (15:10)
[2023-04-19] MEDS ORDERED: ACETAMINOPHEN *IV* 1,000 MG in IV 1 EA IV ONE (15:10)
[2023-04-19] MEDS ORDERED: META400T PO (16:18)
[2023-04-19 16:33] VITALS: BP 132/77; TEMP 97.3; O2SAT 98
[2023-04-20] MEDS ORDERED: META400T PO (11:57)
== END 2023-04-19 16:45 | disposition home or self-care (01) ==
LOC: M ED 13:21
DX: R20.2 Paresthesia of skin (principal); M50.30 Other cervical disc degeneration, unspecified cervical region; K21.9 Gastro-esophageal reflux disease without esophagitis; M79.7 Fibromyalgia; Z88.6 Allergy status to analgesic agent; Z88.5 Allergy status to narcotic agent; Z91.030 Bee allergy status; Z91.040 Latex allergy status; Z79.891 Long term (current) use of opiate analgesic; Z79.83 Long term (current) use of bisphosphonates; Z79.899 Other long term (current) drug therapy
CPT/HCPCS: 96365; 96375; 99284; J0131; J1100

== ENCOUNTER → 2023-05-01 | Outpatient (CLI) | payer OTHER ==
[~2023-05-01] VITALS: Ht 167.6 cm; Wt 65.8 kg
[~2023-05-01] MED LIST changes: +COLA100C5 PO; +CYMB1CAP5 PO; +META400T PO; +SENN-186 PO
[2023-05-01 13:06] VITALS: BP 129/74; O2SAT 95
== END ==
LOC: M PAL 12:53
PROVIDERS: ATTEND Nurse Practitioner Adult Health
DX: G89.29 Other chronic pain (principal); C50.912 Malignant neoplasm of unspecified site of left female breast; M25.551 Pain in right hip; M25.552 Pain in left hip; Z51.5 Encounter for palliative care; Z79.51 Long term (current) use of inhaled steroids; Z79.620 Long term (current) use of immunosuppressive biologic; Z79.811 Long term (current) use of aromatase inhibitors; Z79.899 Other long term (current) drug therapy; Z89.029 Acquired absence of unspecified finger(s); Z90.710 Acquired absence of both cervix and uterus; Z91.013 Allergy to seafood; Z91.030 Bee allergy status; Z91.040 Latex allergy status; Z88.5 Allergy status to narcotic agent; Z88.6 Allergy status to analgesic agent; Z92.21 Personal history of antineoplastic chemotherapy; Z92.3 Personal history of irradiation; Z82.41 Family history of sudden cardiac death; J30.2 Other seasonal allergic rhinitis

== ENCOUNTER → 2023-05-03 | Outpatient (CLI) | payer OTHER | LOC: M EKG 10:02 | PROVIDERS: ATTEND Registered Nurse | DX: R00.0 Tachycardia, unspecified (principal) ==

== ENCOUNTER → 2023-05-06 | Outpatient (CLI) | payer OTHER | LOC: M PAIN 13:00 | PROVIDERS: ATTEND Nurse Practitioner Family | DX: M48.02 Spinal stenosis, cervical region (principal); G89.29 Other chronic pain; M79.7 Fibromyalgia; M15.9 Polyosteoarthritis, unspecified; Z79.899 Other long term (current) drug therapy; Z88.5 Allergy status to narcotic agent; Z91.013 Allergy to seafood; Z91.040 Latex allergy status; Z91.041 Radiographic dye allergy status ==

== ENCOUNTER → 2023-06-17 | Outpatient (REF) | payer OTHER ==
[~2023-06-17] MED LIST changes: +[UNRECOGNIZED DRUG - OTHER]
== END ==
LOC: M LAB REF 17:29
PROVIDERS: ATTEND Internal Medicine
DX: G60.9 Hereditary and idiopathic neuropathy, unspecified (principal)

== ENCOUNTER → 2023-07-01 | Outpatient (CLI) | payer OTHER ==
[~2023-07-01] VITALS: Ht 165.1 cm; Wt 68.0 kg
[~2023-07-01] MED LIST changes: +MELA10CA6 PO; +ROSU10TA6 PO
[2023-07-01 14:08] VITALS: BP 118/69; O2SAT 97
== END ==
LOC: M PAL 13:39
PROVIDERS: ATTEND Nurse Practitioner Adult Health
DX: C50.912 Malignant neoplasm of unspecified site of left female breast (principal); M25.551 Pain in right hip; M25.552 Pain in left hip; M54.2 Cervicalgia; M19.90 Unspecified osteoarthritis, unspecified site; M79.7 Fibromyalgia; Z51.5 Encounter for palliative care; Z79.51 Long term (current) use of inhaled steroids; Z79.620 Long term (current) use of immunosuppressive biologic; Z79.811 Long term (current) use of aromatase inhibitors; Z79.899 Other long term (current) drug therapy; Z89.029 Acquired absence of unspecified finger(s); Z90.710 Acquired absence of both cervix and uterus; Z91.013 Allergy to seafood; Z91.030 Bee allergy status; Z88.5 Allergy status to narcotic agent; Z88.6 Allergy status to analgesic agent; Z91.040 Latex allergy status; Z92.21 Personal history of antineoplastic chemotherapy; Z92.3 Personal history of irradiation; Z82.41 Family history of sudden cardiac death; J30.2 Other seasonal allergic rhinitis; Z90.49 Acquired absence of other specified parts of digestive tract

== ENCOUNTER → 2023-07-02 | Outpatient (CLI) | payer OTHER | LOC: M RAD 13:42 | PROVIDERS: ATTEND Internal Medicine | DX: Z79.811 Long term (current) use of aromatase inhibitors (principal) ==

== ENCOUNTER → 2023-07-22 | Outpatient (CLI) | payer OTHER ==
[~2023-07-22] MED LIST changes: +ISOVUE-M 300 61% 15ML VIAL As Ordered ONE; +LIDOCAINE 1% SDV 30ML VIAL As Ordered ONE; +NORCO, ANEXSIA 5/325MG TABLET (HYDROcodone/ACETAMINOPHEN) As Ordered ONE; -POTA10CA60 PO; +POTA10CA70 PO; -ROSU10TA6 PO; +ROSU10TA61 PO; +diazePAM 5MG TABLET As Ordered ONE; +diphenhydrAMINE 25MG CAP As Ordered ONE; +methylPREDNISolone SUSP 40MG/ML 1ML VIAL (DEPO MEDROL) As Ordered ONE
== END ==
LOC: M PAIN 11:00
PROVIDERS: ATTEND Anesthesiology
DX: M50.10 Cervical disc disorder with radiculopathy, unspecified cervical region (principal); G89.29 Other chronic pain; M79.7 Fibromyalgia; M15.9 Polyosteoarthritis, unspecified; M41.9 Scoliosis, unspecified; Z79.899 Other long term (current) drug therapy; Z88.5 Allergy status to narcotic agent; Z88.6 Allergy status to analgesic agent; Z91.013 Allergy to seafood; Z91.041 Radiographic dye allergy status
CPT/HCPCS: 62321; J1010; Q9967

== ENCOUNTER → 2023-07-29 | Outpatient (CLI) | payer OTHER ==
[~2023-07-29] MED LIST changes: +ISOVUE-370 76% 100ML VIAL As Ordered ONE; -ISOVUE-M 300 61% 15ML VIAL As Ordered ONE; -LIDOCAINE 1% SDV 30ML VIAL As Ordered ONE; -NORCO, ANEXSIA 5/325MG TABLET (HYDROcodone/ACETAMINOPHEN) As Ordered ONE; -diazePAM 5MG TABLET As Ordered ONE; -diphenhydrAMINE 25MG CAP As Ordered ONE; -methylPREDNISolone SUSP 40MG/ML 1ML VIAL (DEPO MEDROL) As Ordered ONE
== END ==
LOC: M RAD 12:10
PROVIDERS: ATTEND Specialist
DX: C50.919 Malignant neoplasm of unspecified site of unspecified female breast (principal); K76.89 Other specified diseases of liver
CPT/HCPCS: 71260; Q9967

== ENCOUNTER → 2023-08-21 | Outpatient (CLI) | payer OTHER ==
[~2023-08-21] MED LIST changes: +BISA5TAB15 PO; +CYMB60CA4 PO; -ISOVUE-370 76% 100ML VIAL As Ordered ONE
== END ==
LOC: M PAIN 14:00
PROVIDERS: ATTEND Nurse Practitioner Family
DX: M50.10 Cervical disc disorder with radiculopathy, unspecified cervical region (principal); M79.7 Fibromyalgia; Z79.02 Long term (current) use of antithrombotics/antiplatelets; Z79.52 Long term (current) use of systemic steroids; Z79.899 Other long term (current) drug therapy; Z88.5 Allergy status to narcotic agent; Z88.6 Allergy status to analgesic agent; Z91.013 Allergy to seafood; Z91.030 Bee allergy status; Z91.040 Latex allergy status

== ENCOUNTER → 2023-09-02 | Outpatient (CLI) | payer OTHER | LOC: M PAL 11:31 | PROVIDERS: ATTEND Nurse Practitioner Adult Health | DX: C50.912 Malignant neoplasm of unspecified site of left female breast (principal); K59.00 Constipation, unspecified; Z51.5 Encounter for palliative care; Z79.51 Long term (current) use of inhaled steroids; Z79.620 Long term (current) use of immunosuppressive biologic; Z79.811 Long term (current) use of aromatase inhibitors; Z79.899 Other long term (current) drug therapy; Z89.029 Acquired absence of unspecified finger(s); Z90.710 Acquired absence of both cervix and uterus; Z91.013 Allergy to seafood; Z91.030 Bee allergy status; Z88.5 Allergy status to narcotic agent; Z88.6 Allergy status to analgesic agent; Z91.040 Latex allergy status; Z92.21 Personal history of antineoplastic chemotherapy; Z92.3 Personal history of irradiation; J30.2 Other seasonal allergic rhinitis; Z82.41 Family history of sudden cardiac death ==

== ENCOUNTER → 2023-09-04 | Outpatient (CLI) | payer OTHER | LOC: M PAIN 16:00 | PROVIDERS: ATTEND Nurse Practitioner Family | DX: M50.10 Cervical disc disorder with radiculopathy, unspecified cervical region (principal); M47.812 Spondylosis without myelopathy or radiculopathy, cervical region; M79.7 Fibromyalgia; Z79.51 Long term (current) use of inhaled steroids; Z79.83 Long term (current) use of bisphosphonates; Z79.891 Long term (current) use of opiate analgesic; Z79.899 Other long term (current) drug therapy; Z88.5 Allergy status to narcotic agent; Z88.6 Allergy status to analgesic agent; Z91.013 Allergy to seafood; Z91.030 Bee allergy status; Z91.040 Latex allergy status ==

== ENCOUNTER → 2023-10-15 | Outpatient (CLI) | payer OTHER ==
[~2023-10-15] VITALS: Ht 167.6 cm; Wt 69.0 kg
[~2023-10-15] MED LIST changes: +GABA-1490 PO; -GABA600T4 PO
[2023-10-15 12:17] VITALS: BP 115/73; O2SAT 99
== END ==
LOC: M PAL 11:35
PROVIDERS: ATTEND Nurse Practitioner Adult Health
DX: G89.29 Other chronic pain (principal); C50.912 Malignant neoplasm of unspecified site of left female breast; M19.90 Unspecified osteoarthritis, unspecified site; Z87.39 Personal history of other diseases of the musculoskeletal system and connective tissue; Z51.5 Encounter for palliative care; Z79.51 Long term (current) use of inhaled steroids; Z79.620 Long term (current) use of immunosuppressive biologic; Z79.811 Long term (current) use of aromatase inhibitors; Z79.899 Other long term (current) drug therapy; Z89.029 Acquired absence of unspecified finger(s); Z90.710 Acquired absence of both cervix and uterus; Z91.013 Allergy to seafood; Z91.030 Bee allergy status; Z91.040 Latex allergy status; Z88.5 Allergy status to narcotic agent; Z88.6 Allergy status to analgesic agent; Z92.21 Personal history of antineoplastic chemotherapy; Z92.3 Personal history of irradiation; Z82.41 Family history of sudden cardiac death; Z90.49 Acquired absence of other specified parts of digestive tract; Z90.721 Acquired absence of ovaries, unilateral

== ENCOUNTER → 2023-11-18 | Outpatient (REF) | payer OTHER | LOC: M SFHCRHEU 12:36 | PROVIDERS: ATTEND Internal Medicine | DX: R53.83 Other fatigue (principal); E55.9 Vitamin D deficiency, unspecified ==

== ENCOUNTER → 2023-11-18 | Outpatient (CLI) | payer OTHER ==
[2023-11-25 15:47] LABS: VITAMIN C, ASCORBIC ACID 0.9 mg/dL (0.3-2.7)
== END ==
LOC: M LAB 13:04
PROVIDERS: ATTEND Internal Medicine
DX: R53.83 Other fatigue (principal); E55.9 Vitamin D deficiency, unspecified

== ENCOUNTER → 2023-12-04 | Outpatient (CLI) | payer OTHER ==
[~2023-12-04] MED LIST changes: +GABA-1172 PO; -GABA-282 PO
== END ==
LOC: M PAIN 11:30
PROVIDERS: ATTEND Nurse Practitioner Family
DX: M79.18 Myalgia, other site (principal); G89.29 Other chronic pain; R68.84 Jaw pain; M15.9 Polyosteoarthritis, unspecified; M41.9 Scoliosis, unspecified; Z79.899 Other long term (current) drug therapy; Z88.5 Allergy status to narcotic agent; Z88.6 Allergy status to analgesic agent; Z91.013 Allergy to seafood; Z91.030 Bee allergy status; Z91.040 Latex allergy status; Z91.041 Radiographic dye allergy status

== ENCOUNTER → 2023-12-24 | Outpatient (CLI) | payer OTHER | LOC: M PAL 09:18 | PROVIDERS: ATTEND Nurse Practitioner Family | DX: G89.29 Other chronic pain (principal); R35.1 Nocturia; K59.00 Constipation, unspecified; M25.559 Pain in unspecified hip; Z85.3 Personal history of malignant neoplasm of breast; Z79.899 Other long term (current) drug therapy; Z51.5 Encounter for palliative care ==

== ENCOUNTER → 2023-12-24 | Outpatient (CLI) | payer OTHER ==
[~2023-12-24] MED LIST changes: +ERGO500029
== END ==
LOC: M PAIN 16:00
PROVIDERS: ATTEND Anesthesiology
DX: M54.6 Pain in thoracic spine (principal); M79.10 Myalgia, unspecified site; M79.18 Myalgia, other site; M15.9 Polyosteoarthritis, unspecified; M41.9 Scoliosis, unspecified; Z85.3 Personal history of malignant neoplasm of breast; Z79.899 Other long term (current) drug therapy; Z88.5 Allergy status to narcotic agent; Z88.6 Allergy status to analgesic agent; Z91.013 Allergy to seafood; Z91.040 Latex allergy status; Z91.041 Radiographic dye allergy status; Z91.030 Bee allergy status

== ENCOUNTER → 2024-01-01 | Outpatient (CLI) | payer OTHER ==
[~2024-01-01] MED LIST changes: +TRIAMCINOLONE ACETONIDE SUSP 40MG/ML 1ML VIAL As Ordered ONE
== END ==
LOC: M PAIN 15:15
PROVIDERS: ATTEND Anesthesiology
DX: M79.18 Myalgia, other site (principal); M26.603 Bilateral temporomandibular joint disorder, unspecified; G89.29 Other chronic pain; M15.9 Polyosteoarthritis, unspecified; M41.9 Scoliosis, unspecified; Z79.899 Other long term (current) drug therapy; Z88.5 Allergy status to narcotic agent; Z91.041 Radiographic dye allergy status; Z91.040 Latex allergy status; Z91.013 Allergy to seafood; Z88.6 Allergy status to analgesic agent; Z91.030 Bee allergy status
CPT/HCPCS: 20552; J0665; J3301

== ENCOUNTER → 2024-01-16 | Outpatient (CLI) | payer OTHER ==
[~2024-01-16] MED LIST changes: -CYCL5TAB PO; +CYCL5TAB4 PO; -TRIAMCINOLONE ACETONIDE SUSP 40MG/ML 1ML VIAL As Ordered ONE
== END ==
LOC: M EKG 13:41
PROVIDERS: ATTEND Internal Medicine Cardiovascular Disease
DX: R00.0 Tachycardia, unspecified (principal)

== ENCOUNTER → 2024-01-29 | Outpatient (CLI) | payer OTHER | LOC: M PLAIMG 07:53 | PROVIDERS: ATTEND Internal Medicine Cardiovascular Disease | DX: R06.02 Shortness of breath (principal); I31.8 Other specified diseases of pericardium; I27.20 Pulmonary hypertension, unspecified ==

== ENCOUNTER → 2024-02-05 | Outpatient (CLI) | payer OTHER | LOC: M CARPUL 10:52 | PROVIDERS: ATTEND Internal Medicine Cardiovascular Disease | DX: R06.02 Shortness of breath (principal); R94.31 Abnormal electrocardiogram [ECG] [EKG] ==

== ENCOUNTER → 2024-02-06 | Outpatient (CLI) | payer OTHER | LOC: M PAIN 15:00 | PROVIDERS: ATTEND Nurse Practitioner Family | DX: M79.18 Myalgia, other site (principal); G89.29 Other chronic pain; M26.603 Bilateral temporomandibular joint disorder, unspecified; M15.9 Polyosteoarthritis, unspecified; Z79.899 Other long term (current) drug therapy; Z88.5 Allergy status to narcotic agent; Z88.6 Allergy status to analgesic agent; Z91.013 Allergy to seafood; Z91.041 Radiographic dye allergy status; Z91.040 Latex allergy status ==

== ENCOUNTER → 2024-02-11 | Outpatient (CLI) | payer OTHER | LOC: M SLEEP HO 11:41 | PROVIDERS: ATTEND Internal Medicine Cardiovascular Disease | DX: I27.20 Pulmonary hypertension, unspecified (principal); G47.33 Obstructive sleep apnea (adult) (pediatric) ==

== ENCOUNTER → 2024-03-25 | Outpatient (CLI) | payer OTHER ==
[~2024-03-25] VITALS: Ht 167.6 cm; Wt 75.5 kg
[~2024-03-25] MED LIST changes: +TRAZ-252 PO
[2024-03-25 13:52] VITALS: BP 140/82; O2SAT 97
== END ==
LOC: M PAL 13:23
PROVIDERS: ATTEND Family Medicine
DX: Z51.5 Encounter for palliative care (principal); M25.559 Pain in unspecified hip; G47.00 Insomnia, unspecified; Z85.3 Personal history of malignant neoplasm of breast; Z79.620 Long term (current) use of immunosuppressive biologic; Z79.899 Other long term (current) drug therapy; Z91.030 Bee allergy status; Z91.013 Allergy to seafood; Z91.040 Latex allergy status; Z88.6 Allergy status to analgesic agent; Z88.5 Allergy status to narcotic agent; J30.2 Other seasonal allergic rhinitis

== ENCOUNTER → 2024-03-26 | Outpatient (CLI) | payer OTHER ==
[~2024-03-26] MED LIST changes: +TRIAMCINOLONE ACETONIDE SUSP 40MG/ML 1ML VIAL As Ordered ONE
== END ==
LOC: M PAIN 14:00
PROVIDERS: ATTEND Anesthesiology
DX: M79.18 Myalgia, other site (principal); G89.29 Other chronic pain; Z79.899 Other long term (current) drug therapy; Z85.3 Personal history of malignant neoplasm of breast; Z80.0 Family history of malignant neoplasm of digestive organs; Z88.5 Allergy status to narcotic agent; Z88.6 Allergy status to analgesic agent; Z91.012 Allergy to eggs; Z91.030 Bee allergy status; Z91.040 Latex allergy status; Z91.041 Radiographic dye allergy status; Z91.048 Other nonmedicinal substance allergy status
CPT/HCPCS: 20552; J0665; J3301

== ENCOUNTER → 2024-04-08 | Outpatient (CLI) | payer OTHER ==
[~2024-04-08] MED LIST changes: -TRIAMCINOLONE ACETONIDE SUSP 40MG/ML 1ML VIAL As Ordered ONE
[2024-04-08 18:29] LABS: BASO % 0.3 % (0.0-1.0); EOS # 0.1 10^3/uL (0.0-0.5); EOS % 0.7 % (0.0-3.0); HEMATOCRIT 34.7 % (36.0-47.0); HEMOGLOBIN 11.2 g/dl (12.0-15.5); LYMPH # 1.7 10^3/uL (1.5-5.0); LYMPH % 23.6 % (24.0-44.0); MEAN CORPUSCULAR HEMOGLOBIN 29.7 pg (27.0-33.0); MEAN CORPUSCULAR HGB CONC 32.3 g/dl (32.0-36.5); MONO # 0.5 10^3/uL (0.0-0.8); MONO % 7.3 % (2.0-8.0); NEUTROPHILS # 4.9 10^3/uL (1.5-8.5); NEUTROPHILS % 67.5 % (36.0-66.0); PLATELET COUNT, AUTOMATED 305 10^3/uL (150-450); RED BLOOD COUNT 3.77 10^6/uL (4.00-5.40); WHITE BLOOD COUNT 7.2 10^3/uL (4.0-10.0)
[2024-04-08 18:40] LABS: ERYTHROCYTE SEDIMENTATION RATE 8 mm/hr (0-30)
[2024-04-08 18:50] LABS: HEMOGLOBIN A1c 5.7 % (4.0-6.0)
[2024-04-08 19:05] LABS: ALBUMIN 3.8 G/DL (3.2-5.2); ALKALINE PHOSPHATASE 25 U/L (35-104); ALT/SGPT 27 U/L (7.0-40); AST/SGOT 16 U/L (<34); BILIRUBIN,TOTAL 1.4 MG/DL (0.3-1.2); BLOOD UREA NITROGEN 18 MG/DL (9-23); CALCIUM LEVEL 9.1 MG/DL (8.3-10.6); CARBON DIOXIDE LEVEL 29 MMOL/L (20-31); CHLORIDE LEVEL 106 MMOL/L (98-107); CREATININE FOR GFR 0.74 MG/DL (0.55-1.30); FREE THYROXINE INDEX 2.3 % (1.3-4.8); GLOMERULAR FILTRATION RATE > 60.0 (>45); GLUCOSE, FASTING 91 MG/DL (74-106); POTASSIUM SERUM 4.2 MMOL/L (3.5-5.1); SODIUM LEVEL 143 MMOL/L (136-145); T UPTAKE 38.1 % (22.5-37.0); THYROID STIMULATING HORMONE 1.108 uIU/ML (0.55-4.78)
[2024-04-08 19:06] LABS: FOLATE 17.8 NG/ML (>5.4)
[2024-04-08 19:07] LABS: VITAMIN B12 LEVEL 299 PG/ML (211-911)
== END ==
LOC: M PLALAB 14:22
PROVIDERS: ATTEND Psychiatry & Neurology Neurology
DX: R41.3 Other amnesia (principal); E53.8 Deficiency of other specified B group vitamins; E07.9 Disorder of thyroid, unspecified; E11.42 Type 2 diabetes mellitus with diabetic polyneuropathy

== ENCOUNTER → 2024-04-19 | Outpatient (CLI) | payer OTHER ==
[~2024-04-19] MED LIST changes: +methylPREDNISolone SUSP 40MG/ML 1ML VIAL (DEPO MEDROL) As Ordered ONE
== END ==
LOC: M RAD 13:37
PROVIDERS: ATTEND Physician Assistant
DX: M25.552 Pain in left hip (principal)
CPT/HCPCS: 20610; 77002; J0665; J1010

== ENCOUNTER → 2024-04-20 | Outpatient (CLI) | payer OTHER ==
[~2024-04-20] MED LIST changes: -methylPREDNISolone SUSP 40MG/ML 1ML VIAL (DEPO MEDROL) As Ordered ONE
== END ==
LOC: M PAIN 15:00
PROVIDERS: ATTEND Nurse Practitioner Family
DX: M79.18 Myalgia, other site (principal); G89.29 Other chronic pain; M26.603 Bilateral temporomandibular joint disorder, unspecified; Z79.899 Other long term (current) drug therapy; Z88.5 Allergy status to narcotic agent; Z88.6 Allergy status to analgesic agent; Z91.013 Allergy to seafood; Z91.030 Bee allergy status; Z91.041 Radiographic dye allergy status

== ENCOUNTER → 2024-06-16 | Outpatient (CLI) | payer OTHER ==
[~2024-06-16] MED LIST changes: +DENO60SY2 SC; -PROL60SO SC
== END ==
LOC: M PLAIMG 11:58
PROVIDERS: ATTEND Physician Assistant
DX: R91.8 Other nonspecific abnormal finding of lung field (principal); I31.39 Other pericardial effusion (noninflammatory)

== ENCOUNTER → 2024-06-23 | Outpatient (CLI) | payer OTHER ==
[~2024-06-23] VITALS: Ht 167.6 cm; Wt 74.2 kg
[~2024-06-23] MED LIST changes: +L-LY500T23 PO
[2024-06-23 13:12] VITALS: BP 119/71; O2SAT 96
== END ==
LOC: M PAL 12:50
PROVIDERS: ATTEND Physician Assistant
DX: Z51.5 Encounter for palliative care (principal); Z85.3 Personal history of malignant neoplasm of breast; Z79.891 Long term (current) use of opiate analgesic; Z91.013 Allergy to seafood; Z91.040 Latex allergy status; Z91.030 Bee allergy status; Z88.6 Allergy status to analgesic agent; Z91.048 Other nonmedicinal substance allergy status; Z88.5 Allergy status to narcotic agent; Z79.899 Other long term (current) drug therapy

== ENCOUNTER → 2024-07-28 | Outpatient (CLI) | payer OTHER ==
[~2024-07-28] MED LIST changes: +AZEL1SPR3; +CETI-24; +CLOB0.0526 TOP; +DONE10TA90; -HYDR28CR33 TOP; +HYDR28CR52 TOP; +PSEU120T19 PO; +TRAZ1TAB10
== END ==
LOC: M SLEEP 20:00
PROVIDERS: ATTEND Physician Assistant
DX: G47.33 Obstructive sleep apnea (adult) (pediatric) (principal)

== ENCOUNTER → 2024-10-06 | Outpatient (CLI) | payer OTHER | LOC: M CARPUL 13:09 | PROVIDERS: ATTEND Registered Nurse | DX: I31.39 Other pericardial effusion (noninflammatory) (principal) ==

== ENCOUNTER → 2024-11-19 | Outpatient (CLI) | payer OTHER | LOC: M SOG 06:50 | PROVIDERS: ATTEND Physician Assistant | DX: M16.12 Unilateral primary osteoarthritis, left hip (principal) ==

== ENCOUNTER → 2024-12-23 | Outpatient (CLI) | payer OTHER ==
[~2024-12-23] MED LIST changes: +B-12100010 PO; +DULO1CAP6
== END ==
LOC: M RAD 11:07
PROVIDERS: ATTEND Physician Assistant
DX: M16.12 Unilateral primary osteoarthritis, left hip (principal); M25.451 Effusion, right hip; M25.452 Effusion, left hip; M94.251 Chondromalacia, right hip; M94.252 Chondromalacia, left hip

== ENCOUNTER → 2024-12-23 | Outpatient (CLI) | payer OTHER ==
[~2024-12-23] VITALS: Ht 167.6 cm; Wt 76.7 kg
[2024-12-23 12:17] VITALS: BP 141/75; O2SAT 97
== END ==
LOC: M PAL 12:07
PROVIDERS: ATTEND Physician Assistant
DX: Z51.5 Encounter for palliative care (principal); Z85.3 Personal history of malignant neoplasm of breast; Z79.891 Long term (current) use of opiate analgesic; Z91.013 Allergy to seafood; Z91.040 Latex allergy status; Z91.030 Bee allergy status; Z88.6 Allergy status to analgesic agent; Z88.5 Allergy status to narcotic agent; Z91.048 Other nonmedicinal substance allergy status; Z79.83 Long term (current) use of bisphosphonates; Z79.02 Long term (current) use of antithrombotics/antiplatelets

== ENCOUNTER 2025-01-15 11:17 | Emergency (ER) | payer OTHER ==
[~2025-01-15] VITALS: Ht 167.6 cm; Wt 76.2 kg
[~2025-01-15 11:17] MED LIST changes: -ROSU10TA61 PO; +ROSU10TA90 PO
[2025-01-15 11:19] VITALS: TEMP 98.1
[2025-01-15] MEDS: DERMABOND TOPICAL SKIN ADHESIVE TOP ONE (12:50)
[2025-01-15] MEDS: TETANUS/DIPHTH/ACEL. PERTUSSIS 0.5 ML SYR IM ONE (12:55)
[2025-01-15 13:13] VITALS: BP 127/68; O2SAT 98
== END 2025-01-15 13:17 | disposition home or self-care (01) ==
LOC: M ED 11:17
DX: S61.211A Laceration without foreign body of left index finger without damage to nail, initial encounter (principal); W26.0XXA Contact with knife, initial encounter; G47.33 Obstructive sleep apnea (adult) (pediatric); M26.609 Unspecified temporomandibular joint disorder, unspecified side; C50.912 Malignant neoplasm of unspecified site of left female breast; F41.1 Generalized anxiety disorder; Y92.009 Unspecified place in unspecified non-institutional (private) residence as the place of occurrence of the external cause; Y93.89 Activity, other specified; Y99.9 Unspecified external cause status; Z91.030 Bee allergy status; Z88.8 Allergy status to other drugs, medicaments and biological substances; Z88.5 Allergy status to narcotic agent; Z91.09 Other allergy status, other than to drugs and biological substances; Z23 Encounter for immunization

== ENCOUNTER → 2025-01-20 | Outpatient (REF) | LOC: M LAB 09:08 | PROVIDERS: ATTEND Family Medicine | DX: Z02.1 Encounter for pre-employment examination (principal) ==

== ENCOUNTER → 2025-01-28 | Outpatient (REF) | payer OTHER | LOC: M LAB REF 16:44 | PROVIDERS: ATTEND Neuromusculoskeletal Medicine, Sports Medicine | DX: M16.12 Unilateral primary osteoarthritis, left hip (principal) ==